=== PATIENT | female | born 1955 | race Caucasian/White ===

== ENCOUNTER 2017-07-07 05:28 | Day surgery (SDC) | payer OTHER, MEDICARE ==
[2017-07-06 18:10] VITALS: BMI 24.7
[2017-07-07] MEDS ORDERED: LIDOCAINE HCL 1%, 10 MG/ML (20ML VIAL) ONE (14:01)
[2017-07-07] MEDS ORDERED: HEPARIN NA (PORCINE) 5,000 UNITS/ML 1ML VIAL ONE (14:01)
[2017-07-07] MEDS ORDERED: POVIDONE-IODINE OINTMENT 10% - 28.4 GM TUBE ONE (14:46)
--- NOTE | 2017-07-07 14:46 | HP ---
[facility] - Chief Complaint History of Present Illness: 62 year old woman with ESRD on HD who needs chronic hemodialysis access. She has liver transplant and developed kidney disease from rejection medications. She is right handed. History Source: Patient Limitations to Obtaining History: No Limitations - Past Medical History Allergies/Adverse Reactions: Allergies Allergy/AdvReac Type Severity Reaction Status Date / Time No Known Allergies Allergy Verified 07/07/17 14:14 Cardiovascular: Yes: HTN Hepatobiliary: Yes: Other (Liver transplant) - Current Medications Current Medications: Home Medications Medication Instructions Recorded Amlodipine Besylate [Norvasc -] 5 mg PO BID 07/06/17 Doxazosin Mesylate 4 mg PO DAILY 07/06/17 Furosemide [Lasix] 40 mg PO BID 07/06/17 Gabapentin 300 mg PO DAILY 07/06/17 Mycophenolate Mofetil [Cellcept] 500 mg PO BID 07/06/17 Repaglinide [Prandin] 1.5 mg PO DAILY 07/06/17 Tacrolimus [Prograf 0.5 mg NR DAILY 07/06/17 (Non-Formulary)] Satellite Physical Exam - Physical Examination Vital Signs: Vital Signs Period Temp Pulse Resp BP Sys/Reeves Pulse Ox Last 24 Hr 98.1 F 79 16 121/76 100 General Appearance: Well Developed, Alert & Oriented x3 ENT: Clear Lung: Clear to auscultation Heart: Regular rate & rhythm Breasts: Soft Abdomen: Soft Extremities: No edema Satellite Impression/Plan - Impression/Plan Impression: ESRD on HD Operative Procedure: Creation AV fistula left arm Date to be Performed: 07/07/17
[2017-07-07] MEDS ORDERED: PROPOFOL 20 ML ONE ×4 (14:54)
[2017-07-07] MEDS ORDERED: MIDAZOLAM HCL 2 MG/2 ML SINGLE DOSE VIAL ONE (14:55)
[2017-07-07] MEDS ORDERED: LIDOCAINE HCL/PF 2% SDV 5ML VIAL ONE (14:58)
[2017-07-07] MEDS ORDERED: PAPAVERINE HCL 30 MG/1 ML 10 ML VIAL NR ONE (15:11)
[2017-07-07] MEDS ORDERED: LIDOCAINE HCL 1%, 10 MG/ML (20ML VIAL) IJ ONE (15:35)
--- NOTE | 2017-07-07 16:27 | OP ---
Operative Note - Note: Operative Date: 07/07/17 Pre-Operative Diagnosis: ESRD on HD Operation: Creation AV fistula left arm Findings: Cephalic vein 3 mm distended. Radial artery 2.5 mm Post-Operative Diagnosis: Same as Pre-op Surgeon: Dread Flaherty Anesthesiologist/NON DESTRUCTIVE TESTING ENGINEER: Mily Ordonez Anesthesia: Fractional Estimated Blood Loss (mls): 100
[2017-07-07] MEDS ORDERED: ACETAMINOPHEN 325 MG TABLET (FP) PO PRN (16:29)
[2017-07-07] MEDS ORDERED: oxyCODONE HCL 5 MG TABLET PO PRN (16:29)
[2017-07-07 17:18] VITALS: TEMP 97.8
[2017-07-07 19:57] VITALS: BP 127/67; PULSE 74
--- NOTE | 2017-07-07 21:05 | OP ---
DATE OF OPERATION: 07/07/2017 SURGEON: Dread Galvin M.D. PROCEDURE: Creation of arteriovenous fistula of the left arm. PREOPERATIVE DIAGNOSIS: Renal failure. POSTOPERATIVE DIAGNOSIS: Renal failure. ANESTHESIA: Fractional. ANESTHESIOLOGIST: Mily Ordonez CRNA OPERATIVE FINDINGS: The forearm cephalic vein was patent with a diameter of approximately 3 mm with distended. The adjacent radial artery was approximately 2.5 mm in diameter with good flow. OPERATIVE PROCEDURE: Following routine patient identification, side to side verification, intravenous tissue was established. The left arm was prepped with Chloraprep. Timeout was performed. Then 1% Xylocaine was infiltrated over the cephalic vein in the distal forearm, which had been met preoperatively with duplex imaging. A skin incision was made and carried in the subcutaneous tissues using cautery for hemostasis. The cephalic vein was identified and carefully mobilized from the surrounding tissues. Distal side branches were ligated. The end of the vein was then opened through the side branches and distended with heparin and propiverine solution. Number 5 and number 8 feeding tubes were passed proximally without resistance. The vein was filled with heparin solution. The radial artery was then exposed to the same incision. It was encircled proximally, distally with vessel loops. Side branches were ligated with silk ties and divided. The artery was then occluded with Yasargil clips and opened on its exposed surface with a longitudinal arteriotomy measuring approximately 8 mm. The end of the vein was spatulated anastomosed to the side of the artery throwing suture of 6-0 Prolene. Prior to completion of the suture line, the artery was allowed to back bleed and flush, and the vein was flushed with heparin solution. Suture line was completed, and all clamps were removed. There was good flow through the anastomosis with a palpable thrill in the proximal vein. Bleeding from the suture line was controlled with Surgicel. Hemostasis was adequate. Wound was irrigated, closed with subcutaneous sutures of 3-0 Vicryl, and skin luz marina. Sterile dressing was applied, and the patient was taken to the recovery room in stable condition. DREAD GALVIN M.D. [id number] MTDD
== END 2017-07-07 18:00 | disposition home or self-care (01) ==
LOC: JASU-SURG 05:28
PROVIDERS: ATTEND Surgery
PROC: 031C0ZF Bypass Left Radial Artery to Lower Arm Vein, Open Approach (ICD-10-PCS; principal; 2017-07-07 15:00)
DX: N18.6 End stage renal disease (principal); Z94.4 Liver transplant status; N28.89 Other specified disorders of kidney and ureter; Z99.2 Dependence on renal dialysis
CPT/HCPCS: 36415; 84132; 94760; J1644

== ENCOUNTER 2017-08-21 08:34 | Inpatient (IN) | payer OTHER, MEDICARE ==
[2017-08-21 08:54] VITALS: BMI 25.2
--- NOTE | 2017-08-21 09:14 | PDOC ---
History of Present Illness - General Chief Complaint: Dialysis Shunt Problem Stated Complaint: PCP SENT Time Seen by Provider: 08/21/17 09:13 Past History - Past Medical History Allergies/Adverse Reactions: Allergies Allergy/AdvReac Type Severity Reaction Status Date / Time No Known Allergies Allergy Verified 07/07/17 14:14 Home Medications: Ambulatory Orders Amlodipine Besylate [Norvasc -] 5 mg PO BID 07/06/17 Doxazosin Mesylate 4 mg PO DAILY 07/06/17 Furosemide [Lasix] 40 mg PO BID 07/06/17 Gabapentin 300 mg PO DAILY 07/06/17 Mycophenolate Mofetil [Cellcept] 500 mg PO BID 07/06/17 Repaglinide [Prandin] 1.5 mg PO DAILY 07/06/17 Tacrolimus [Prograf (Non-Formulary)] 0.5 mg NR DAILY 07/06/17 Anemia: No Asthma: No Cancer: No Cardiac Disorders: No CVA: No COPD: No CHF: No Dementia: No Diabetes: Yes Dialysis: Yes ([id number]) GI Disorders: No HTN: Yes Hypercholesterolemia: No Liver Disease: Yes (LIVER TRANSPLANT 2004) Seizures: No Thyroid Disease: No - Surgical History Cholecystectomy: Yes - Suicide/Smoking/Psychosocial Hx Smoking History: Never smoked Have you smoked in the past 12 months: No If you are a former smoker, when did you quit?: 2013 Information on smoking cessation initiated: No Hx Alcohol Use: No Drug/Substance Use Hx: No Substance Use Type: None Hx Substance Use Treatment: No *Physical Exam - Vital Signs Last Vital Signs Temp Pulse Resp BP Pulse Ox 97.7 F 80 18 145/84 100 08/21/17 08:35 08/21/17 08:35 08/21/17 08:35 08/21/17 08:35 08/21/17 08:35
--- NOTE | 2017-08-21 09:22 | PDOC ---
Attending Attestation - Resident Resident Name: Gordon Mendoza - ED Attending Attestation I have performed the following: I have examined & evaluated the patient, The case was reviewed & discussed with the resident, I agree w/resident's findings & plan, Exceptions are as noted - Physicial Exam PE: GENERAL: Awake, alert, and fully oriented, in no acute distress HEAD: No signs of trauma EYES: PERRLA, EOMI, sclera anicteric, conjunctiva clear ENT: Auricles normal inspection, hearing grossly normal, nares patent, oropharynx clear without exudates. Moist mucosa NECK: Normal ROM, supple, no lymphadenopathy, JVD, or masses LUNGS: Breath sounds equal, clear to auscultation bilaterally. No wheezes, and no crackles HEART: Regular rate and rhythm, normal S1 and S2, no murmurs, rubs or gallops ABDOMEN: Soft, +distension, with fluid save. Nontender, normoactive bowel sounds. No guarding, no rebound. No masses EXTREMITIES: Normal range of motion, no edema. No clubbing or cyanosis. No cords , erythema, or tenderness NEUROLOGICAL: Cranial nerves II through XII grossly intact. Normal speech, normal gait SKIN: Warm, Dry, normal turgor, no rashes. R upper chest wall with tunneled catheter present, with purulent material leaking around the insertion site. Slight erythema at the insertion point. Sutures are not intact. - Medical Decision Making 08/21/17 10:08 Dr. Loza at bedside. 08/21/17 10:25 D/w Dr. Gerardo Palacio, will admit. Requested Dr. Rooney for ID. I will place consult. 08/21/17 10:[address] Flaherty. 08/21/17 10:[address] Loza, who spoke with Dr. Flaherty. Dr. Flaherty will come to remove the catheter. I will send PT/INR and T&S. <Marilyn Lo - Last Filed: 08/21/17 10:41> - HPI HPI: 08/21/17 09:38 62 yr old female, with significant past medical history of ESRD on hemodialysis (Wednesday//Wednesday), DM II, HTN, s/p liver transplant, who presents to the emergency room with increased redness, warmth, and purulent discharge from her dialysis port. The port was cultured at the [facility] and was gram positive. She was started on vancomycin and gentamicin. The patient completed the dialysis treatment this morning. The doctor who placed this port is located at [place]; however, Dr. Flaherty recently placed an AV shunt in her left arm 07/07/17. Denies fever, chills, nausea, vomiting. Denies chest pain, SOB, cough. PCP: Dr. Petrona Palacio General Manager In Training: Dr. Sera Morrow Vascular: Dr. Dread Flaherty <Jessi Garrison - Last Filed: 08/21/17 11:10>
--- NOTE | 2017-08-21 09:41 | PDOC ---
History of Present Illness <Marilyn Lo - Last Filed: 08/21/17 10:27> - General History Source: Patient Exam Limitations: No Limitations - History of Present Illness Initial Comments: 08/21/17 12:34 62F with pmh of ESRD on hemodialysis (Wednesday//Wednesday), DM II, HTN, s/ p liver transplant, sent to the ED by SIS[facility] Hoang for pain, swelling, redness and purulent discharge from CVC site. At that facility Dr. Sera Ricks collected culture from site as well as blood and patient was started on 1g Vancomycin and 100mg Gentamycin. Patient was sent for evaluation and possible replacement of Catheter. The doctor who placed this port is located at [place]; however, Dr. Flaherty recently placed an AV shunt in her left arm 07/07/17. Denies fever, chills, nausea, vomiting. Denies chest pain, SOB, cough. 08/21/17 12:45 <Gordon Mendoza - Last Filed: 08/21/17 12:46> - General Chief Complaint: Dialysis Shunt Problem Stated Complaint: PCP SENT Time Seen by Provider: 08/21/17 09:13 Past History <Marilyn Lo - Last Filed: 08/21/17 10:27> - Past Medical History Anemia: No Asthma: No Cancer: No Cardiac Disorders: No CVA: No COPD: No CHF: No Dementia: No Diabetes: Yes Dialysis: Yes ([id number]) GI Disorders: No HTN: Yes Hypercholesterolemia: No Liver Disease: Yes (LIVER TRANSPLANT 2004) Seizures: No Thyroid Disease: No - Surgical History Cholecystectomy: Yes - Suicide/Smoking/Psychosocial Hx Smoking History: Former smoker Have you smoked in the past 12 months: No If you are a former smoker, when did you quit?: 2013 Information on smoking cessation initiated: No Hx Alcohol Use: No Drug/Substance Use Hx: No Substance Use Type: None Hx Substance Use Treatment: No <Gordon Mendoza - Last Filed: 08/21/17 12:46> - Past Medical History Allergies/Adverse Reactions: Allergies Allergy/AdvReac Type Severity Reaction Status Date / Time No Known Allergies Allergy Verified 07/07/17 14:14 Home Medications: Ambulatory Orders Amlodipine Besylate [Norvasc -] 5 mg PO DAILY 07/06/17 Doxazosin Mesylate 4 mg PO DAILY 07/06/17 Furosemide [Lasix] 40 mg PO BID 07/06/17 Gabapentin 300 mg PO DAILY 07/06/17 Mycophenolate Mofetil [Cellcept] 500 mg PO BID 07/06/17 Repaglinide [Prandin] 1.5 mg PO DAILY 07/06/17 Tacrolimus [Prograf (Non-Formulary)] 0.5 mg NR BID 07/06/17 Review of Systems - Review of Systems Constitutional: No: Symptoms Reported, Fever HEENTM: No: Symptoms Reported Respiratory: No: Symptoms reported Cardiac (ROS): No: Symptoms Reported ABD/GI: Yes: Abdominal Distended : No: Symptoms Reported Musculoskeletal: No: Symptoms Reported All Other Systems: Reviewed and Negative <Gordon Mendoza - Last Filed: 08/21/17 12:46> *Physical Exam - Vital Signs Last Vital Signs Temp Pulse Resp BP Pulse Ox 97.7 F 80 18 145/84 100 08/21/17 08:35 08/21/17 08:35 08/21/17 08:35 08/21/17 08:35 08/21/17 08:35 <Marilyn Lo - Last Filed: 08/21/17 10:27> - Vital Signs Last Vital Signs Temp Pulse Resp BP Pulse Ox 97.7 F 80 18 145/84 100 08/21/17 08:35 08/21/17 08:35 08/21/17 08:35 08/21/17 08:35 08/21/17 08:35 - Physical Exam General Appearance: Yes: Nourished, Appropriately Dressed. No: Apparent Distress HEENT: positive: EOMI, LARY, Other (visible catheter subcutaneously on right neck with purulent discharge and missing sutures.) Neck: positive: Trachea midline. negative: Tender Respiratory/Chest: positive: Lungs Clear, Normal Breath Sounds. negative: Chest Tender Cardiovascular: positive: Regular Rhythm, Regular Rate, S1, S2 Gastrointestinal/Abdominal: positive: Distended, Other (positive ascites) <Gordon Mendoza - Last Filed: 08/21/17 12:46> ED Treatment Course - LABORATORY CBC & Chemistry Diagram: 08/21/17 09:15 08/21/17 09:15 - ADDITIONAL ORDERS Additional order review: Laboratory Results 08/21/17 09:15 Sodium 134 L Potassium 4.4 Chloride 101 Carbon Dioxide 23 Anion Gap 10 BUN 41 H D Creatinine 5.8 H D Creat Clearance w eGFR 7.34 Random Glucose 127 H D Calcium 8.6 Total Bilirubin 0.5 D AST 24 D ALT 14 Alkaline Phosphatase 113 Total Protein 7.7 Albumin 3.7 08/21/17 09:15 RBC 3.43 L MCV 87.5 MCHC 30.5 L RDW 16.3 H MPV 8.6 Neutrophils % 66.9 Lymphocytes % 20.6 Monocytes % 10.8 H Eosinophils % 0.9 Basophils % 0.8 - RADIOLOGY Radiology Studies Ordered: Category Date Time Status CHEST X-RAY PORTABLE* [RAD] Stat Radiology 08/21/17 09:15 Completed <Marilyn Lo - Last Filed: 08/21/17 10:27> - LABORATORY CBC & Chemistry Diagram: 08/21/17 09:15 08/21/17 09:15 <Gordon Mendoza - Last Filed: 08/21/17 12:46> Medical Decision Making - Medical Decision Making 08/21/17 12:43 08/21/17 10:08 62F with pmh of ESRD on hemodialysis (Wednesday//Wednesday), DM II, HTN, s/ p liver transplant, sent to the ED by SISSY Hoang for pain, swelling, redness and purulent discharge from CVC site. Dr. Loza at bedside. 08/21/17 10:25 D/w Dr. Gerardo Palacio, will admit. Requested Dr. Rooney for ID. I will place consult. 08/21/17 10:[address] Flaherty. 08/21/17 10:[address] Loza, who spoke with Dr. Flaherty. Dr. Flaherty will come to remove the catheter. I will send PT/INR and T&S. 08/21/17 12:46 <Gordon Mendoza - Last Filed: 08/21/17 12:46> *DC/Admit/Observation/Transfer - Discharge Dispostion Admit: Yes <Marilyn Lo - Last Filed: 08/21/17 10:27> <Gordon Mendoza - Last Filed: 08/21/17 12:46> Diagnosis at time of Disposition: Infection of vascular catheter - Discharge Dispostion Condition at time of disposition: Stable - Referrals Referrals: Petrona Palacio [Primary Care Provider] -
[2017-08-21 09:42] LABS: BASOPHIL 0.8 % (0-2.0); EOSINOPHIL 0.9 % (0-4.5); MCH 26.7 pg (25.7-33.7); MCHC 30.5 g/dl (32.0-36.0); MEAN CELL VOLUME 87.5 fl (80-96); MEAN PLT VOLUME 8.6 fl (7.5-11.1); NEUTROPHILS 66.9 % (42.8-82.8); PLATELET COUNT 130 K/MM3 (134-434); RDW 16.3 % (11.6-15.6); WHITE BLOOD COUNT 3.1 K/mm3 (4.0-10.0)
[2017-08-21 10:04] LABS: ALBUMIN 3.7 g/dl (3.4-5.0); ANION GAP 10 (8-16); BILIRUBIN,TOTAL 0.5 mg/dL (0.2-1.0); CALCIUM 8.6 mg/dL (8.5-10.1); CO2 23 mmol/L (21-32); CREATININE 5.8 mg/dL (0.55-1.02); GLUCOSE,RANDOM 127 mg/dL (74-106); SGPT/ALT 14 U/L (12-78); TOT PROT 7.7 g/dl (6.4-8.2)
[2017-08-21 10:05] LABS: ALK PHOS 113 U/L (45-117)
[2017-08-21 10:10] LABS: SGOT/AST 24 U/L (15-37)
--- NOTE | 2017-08-21 10:31 | CON.NEP ---
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 Pt s/ p vanco and gent with last dialysis on . - History Source History Provided By: Patient Limitations to Obtaining History: No Limitations - Past Medical History Cardio/Vascular: Yes: HTN Hepatobiliary: Yes: Other (Liver transplant) - Alcohol/Substance Use Hx Alcohol Use: No - Smoking History Smoking history: Former smoker Have you smoked in the past 12 months: No If you are a former smoker, when did you quit?: 2013 Home Medications - Allergies Allergies/Adverse Reactions: Allergies Allergy/AdvReac Type Severity Reaction Status Date / Time No Known Allergies Allergy Verified 07/07/17 14:14 - Home Medications Home Medications: Ambulatory Orders Amlodipine Besylate [Norvasc -] 5 mg PO DAILY 07/06/17 Doxazosin Mesylate 4 mg PO DAILY 07/06/17 Furosemide [Lasix] 40 mg PO BID 07/06/17 Gabapentin 300 mg PO DAILY 07/06/17 Mycophenolate Mofetil [Cellcept] 500 mg PO BID 07/06/17 Repaglinide [Prandin] 1.5 mg PO DAILY 07/06/17 Tacrolimus [Prograf (Non-Formulary)] 0.5 mg NR BID 07/06/17 Review of Systems - Review of Systems Constitutional: reports: No Symptoms Eyes: reports: No Symptoms HENT: reports: No Symptoms Neck: reports: No Symptoms Cardiovascular: reports: No Symptoms Respiratory: reports: No Symptoms Gastrointestinal: reports: Other (ascities) Genitourinary: reports: No Symptoms Musculoskeletal: reports: No Symptoms Integumentary: reports: No Symptoms Neurological: reports: No Symptoms Nephrology Consult - Height Height: 5 ft 6 in - Weight Weight: 156 lb - BMI Body Mass Index (BMI): 25.2 - Lab Results CBC,BMP: CBC, BMP 08/21/17 09:15 08/21/17 09:15 Anion Gap: Anion Gap Anion Gap 10 (8-16) 08/21/17 09:15 - Imaging Chest X-ray: Report Reviewed - Physical Examination Vital Signs: Vital Signs Temperature 97.7 F 08/21/17 08:35 Pulse Rate 80 08/21/17 08:35 Respiratory Rate 18 08/21/17 08:35 Blood Pressure 145/84 08/21/17 08:35 O2 Sat by Pulse Oximetry (%) 100 08/21/17 08:35 Assessment/Plan 62 year old woman with PMhx of 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 #Gram positive bactermia with suspected infected dialysis catheter s/p vanco and get with HD on for HD today via catheter and then IV Vanco post will need to have catheter removed post dialysis Vascular consult ID consult #ESRD on HD for HD today with UF 3L as tolerated #Liver Transplant continue Prograf and Cellcept consider GI evaluation Inder Loza DO
[2017-08-21 11:11] LABS: INR 1.12 (0.82-1.09); PROTHROMBIN TIME (PATIENT) 12.7 SEC (9.98-11.88)
[2017-08-21] MEDS ORDERED: HEPARIN NA (PORCINE) 5,000 UNITS/ML 1ML VIAL ONE (11:46)
[2017-08-21] MEDS ORDERED: LIDOCAINE HCL 1%, 10 MG/ML (20ML VIAL) ONE (11:46)
[2017-08-21] MEDS ORDERED: VANCOMYCIN 1,000 MG in DEXTROSE 5%-WATER - 250 ML IVPB ONE (12:00)
--- NOTE | 2017-08-21 12:13 | PROC ---
Central Line Insertion Indication: Other (Dialysis access) Risks and Benefits Explained: Yes Consent on Chart: Yes Central Line: Dialysis Cath, Dual Lumen Anesthesia: 1% Lidocaine Sterile Technique: Yes Position: Right Femoral Sterile Dressing Applied: Yes
--- NOTE | 2017-08-21 12:18 | CONSULT ---
Consult - History of Present Illness History of Present Illness: 62 year old woman ESRD on HD with new AVF left arm and Permacath right IJ who has positive blood cultures at dialysis. Patient feels well, denies fever or chills. - Past Medical History Cardio/Vascular: Yes: HTN Hepatobiliary: Yes: Other (Liver transplant) - Alcohol/Substance Use Hx Alcohol Use: No - Smoking History Smoking history: Former smoker Have you smoked in the past 12 months: No If you are a former smoker, when did you quit?: 2013 Home Medications - Allergies Allergies/Adverse Reactions: Allergies Allergy/AdvReac Type Severity Reaction Status Date / Time No Known Allergies Allergy Verified 07/07/17 14:14 - Home Medications Home Medications: Ambulatory Orders Amlodipine Besylate [Norvasc -] 5 mg PO DAILY 07/06/17 Doxazosin Mesylate 4 mg PO DAILY 07/06/17 Furosemide [Lasix] 40 mg PO BID 07/06/17 Gabapentin 300 mg PO DAILY 07/06/17 Mycophenolate Mofetil [Cellcept] 500 mg PO BID 07/06/17 Repaglinide [Prandin] 1.5 mg PO DAILY 07/06/17 Tacrolimus [Prograf (Non-Formulary)] 0.5 mg NR BID 07/06/17 Physical Exam Vital Signs: Vital Signs Temperature 97.7 F 08/21/17 08:35 Pulse Rate 80 08/21/17 08:35 Respiratory Rate 18 08/21/17 08:35 Blood Pressure 145/84 08/21/17 08:35 O2 Sat by Pulse Oximetry (%) 100 08/21/17 08:35 Constitutional: Yes: No Distress Eyes: Yes: EOM Intact Neck: Yes: Supple, Other (No erythema or tenderness.) Gastrointestinal: Yes: Distention Extremities: Yes: Other (Left radial-cephalic fistula with thrill) Labs: CBC, BMP 08/21/17 09:15 08/21/17 09:15 Problem List - Problems (1) Line sepsis associated with dialysis catheter Assessment/Plan: Will remove Permacath and place temporary Shiley in right femoral vein. Code(s): T80.218A - OTHER INFECTION DUE TO CENTRAL VENOUS CATHETER, INIT ENCNTR A41.9 - SEPSIS, UNSPECIFIED ORGANISM Assessment/Plan Right chest permacath removed at bedside. Sterile dressing applied.
--- NOTE | 2017-08-21 12:48 | OP ---
DATE OF OPERATION: 08/21/2017 PROCEDURE: 1. Placement, right femoral dialysis catheter. 2. Removal of Perm-A-Cath from right chest. INDICATION: Sepsis. Consent from patient. ANESTHESIA: Local. PROCEDURE: The right groin was prepped with ChloraPrep. Sterile drape was applied. Timeout was performed. Xylocaine 1% was infiltrated medial to the right femoral pulse and an 18-gauge needle was used to access the right femoral vein. A wire was passed proximally into the iliac vein. The needle was removed, the tract dilated, and a double-lumen dialysis catheter advanced over the wire without difficulty. The wire was removed. Each lumen was aspirated for blood, filled with saline and heparin solution. Catheter was sutured to the skin at the exit site with 3-0 nylon. Sterile dressing was applied. Attention was then turned to the chest wall where the Perm-A-Cath was exiting from the skin. The chest wall was prepped with ChloraPrep. Lidocaine was infiltrated around the exit site and the cuff was freed and the catheter removed. Pressure was applied until bleeding ceased. A sterile dressing was applied. Patient tolerated procedures well. Lisette [id number]
[2017-08-21] MEDS ORDERED: VANCOMYCIN 1 GRAM (PRE-DOCKED) 250 ML IVPB ONE (13:20)
--- NOTE | 2017-08-21 14:49 | HP ---
Admitting History and Physical - Primary Care Physician PCP: Gerardo Palacio - Admission Chief Complaint: Positive BCX History of Present Illness: Pt with Hx/o ESRD on HD, had positive BCX from Permacat at HD center and was referred to ER for evaluation and treatment. Pt has a right Permacath, new left AVF. History Source: Patient - Past Medical History Cardiovascular: Yes: HTN Hepatobiliary: Yes: Other (Liver transplant) Renal/: Yes: Renal Failure, Other (HD, Right Permacath, left AVF) - Past Surgical History Past Surgical History: Yes: Liver Transplant - Smoking History Smoking history: Former smoker Have you smoked in the past 12 months: No If you are a former smoker, when did you quit?: 2013 - Alcohol/Substance Use Hx Alcohol Use: No Home Medications - Allergies Allergies/Adverse Reactions: Allergies Allergy/AdvReac Type Severity Reaction Status Date / Time No Known Allergies Allergy Verified 07/07/17 14:14 - Home Medications Home Medications: Ambulatory Orders Amlodipine Besylate [Norvasc -] 5 mg PO DAILY 07/06/17 Doxazosin Mesylate 4 mg PO DAILY 07/06/17 Furosemide [Lasix] 40 mg PO BID 07/06/17 Gabapentin 300 mg PO DAILY 07/06/17 Mycophenolate Mofetil [Cellcept] 500 mg PO BID 07/06/17 Repaglinide [Prandin] 1.5 mg PO DAILY 07/06/17 Tacrolimus [Prograf (Non-Formulary)] 0.5 mg NR BID 07/06/17 Review of Systems - Review of Systems Constitutional: denies: Chills, Fever Eyes: denies: Blurred Vision, Recent Change in Vision HENT: denies: Difficult Swallowing, Ear Discharge, Ear Pain, Epistaxis, Throat Pain Neck: denies: Pain on Movement, Stiffness Cardiovascular: denies: Chest Pain, Edema, Palpitations, Shortness of Breath Respiratory: denies: Cough, SOB Gastrointestinal: denies: Abdominal Pain, Diarrhea, Nausea, Vomiting Musculoskeletal: denies: Joint Swelling, Muscle Pain Integumentary: denies: Blister, Pruritis, Rash Endocrine: denies: Excessive Sweating, Intolerance to Cold Physical Examination Vital Signs: Vital Signs Temperature 97.7 F 08/21/17 08:35 Pulse Rate 83 08/21/17 11:20 Respiratory Rate 20 08/21/17 11:20 Blood Pressure 124/83 08/21/17 11:20 O2 Sat by Pulse Oximetry (%) 99 08/21/17 11:20 Constitutional: Yes: No Distress, Calm Eyes: Yes: Conjunctiva Clear, EOM Intact HENT: Yes: Normocephalic. No: Nasal Congestion, Rhinnorhea Neck: Yes: Trachea Midline. No: Lymphadenopathy Cardiovascular: Yes: Regular Rate and Rhythm, S1, S2 Respiratory: Yes: Regular, CTA Bilaterally. No: Rales Gastrointestinal: Yes: Normal Bowel Sounds, Soft, Ascites ...Rectal Exam: Yes: Deferred Breast(s): Yes: Other (deferred) Musculoskeletal: No: Joint Stiffness, Joint Swelling Extremities: No: Cool, Cyanosis Edema: No Integumentary: No: Erythema, Rash Neurological: Yes: Alert, Oriented, Other (symmetric motor and sensory.) Labs: reviewed Imaging - Results Chest X-ray: Report Reviewed Problem List - Problems (1) Bacteremia associated with intravascular line Code(s): T82.7XXA - INFECT/INFLM REACT D/T OTH CARDI/VASC DEV/IMPLNT/GRFT, INIT R78.81 - BACTEREMIA (2) ESRD (end stage renal disease) on dialysis Code(s): N18.6 - END STAGE RENAL DISEASE Z99.2 - DEPENDENCE ON RENAL DIALYSIS (3) Liver transplanted Code(s): Z94.4 - LIVER TRANSPLANT STATUS (4) Hypertension Code(s): I10 - ESSENTIAL (PRIMARY) HYPERTENSION Assessment/Plan Vasc SX Consult ID consult Renal consult AM labs Case was d/w family at bedside.
[2017-08-21] MEDS ORDERED: TACROLIMUS 0.5 MG NR SCH (22:00)
[2017-08-22] MEDS: MYCOPHENOLATE MOFETIL 500 MG TABLET PO SCH ×3 (02:17→22:00)
[2017-08-22] MEDS: REPAGLINIDE 0.5 MG TABLET (FP) PO SCH (06:36)
[2017-08-22] MEDS ORDERED: FUROSEMIDE 40 MG TABLET (FP) ONE (06:37)
[2017-08-22] MEDS: FUROSEMIDE 40 MG TABLET (FP) PO SCH ×2 (06:39→16:50)
[2017-08-22 06:53] LABS: MCH 26.7 pg (25.7-33.7); MCHC 30.7 g/dl (32.0-36.0); MEAN CELL VOLUME 87.1 fl (80-96); MEAN PLT VOLUME 8.4 fl (7.5-11.1); PLATELET COUNT 133 K/MM3 (134-434); WHITE BLOOD COUNT 3.2 K/mm3 (4.0-10.0)
[2017-08-22 07:17] LABS: ALBUMIN 3.3 g/dl (3.4-5.0); ANION GAP 12 (8-16); CO2 25 mmol/L (21-32); GLUCOSE,RANDOM 123 mg/dL (74-106)
[2017-08-22 07:21] LABS: ALK PHOS 111 U/L (45-117); BILIRUBIN,TOTAL 0.4 mg/dL (0.2-1.0); CREATININE 4.8 mg/dL (0.55-1.02); SGOT/AST 20 U/L (15-37); SGPT/ALT 13 U/L (12-78); TOT PROT 7.2 g/dl (6.4-8.2)
--- NOTE | 2017-08-22 09:06 | PN ---
Progress Note (short form) - Note Progress Note: Renal Follow up for ESRD on HD Pt seen and examined in the ED awake and alert no acute complaints no sob, chest pain s/p dialysis yesterday Vital Signs Temperature 98.2 F 08/22/17 04:54 Pulse Rate 91 H 08/22/17 04:54 Respiratory Rate 18 08/22/17 04:54 Blood Pressure 127/83 08/22/17 04:54 O2 Sat by Pulse Oximetry (%) 98 08/22/17 06:00 Intake & Output 08/19/17 08/20/17 08/21/17 08/22/17 23:59 23:59 23:59 23:59 Intake Total 100 Balance 100 Weight 156 lb NAD RRR CTA, no rales soft, + ascities No edema in LE tunneled HD catheter removed, dressing in place femoral shiely catheter in place CBC, BMP 08/22/17 06:03 08/22/17 06:03 Current Medications Amlodipine Besylate (Norvasc -) 5 mg PO DAILY [facility] Doxazosin Mesylate (Cardura -) 4 mg PO DAILY [facility] Furosemide (Lasix -) 40 mg PO BIDLASIX [facility] Last Admin: 08/22/17 06:39 Dose: 40 mg Gabapentin (Neurontin -) 300 mg PO DAILY [facility] Mycophenolate Mofetil (Cellcept -) 500 mg PO BID [facility] Last Admin: 08/22/17 02:17 Dose: 500 mg Non-Formulary Medication (Tacrolimus) 0.5 mg NR BID [facility] Repaglinide (Prandin -) 1.5 mg PO DAILY@0700 [facility] Last Admin: 08/22/17 06:36 Dose: Not Given A/P 62 year old woman with PMhx of 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 #Gram positive bactermia with suspected infected dialysis catheter tunneled HD catheter removed by vascular temporary femoral shiely catheter place s/p Vanco IV yesterday f/u cultures drawn yesterday #ESRD on HD s/p dialysis yesterday with 3kg UF no indication for dialysis today Renal diet #Liver Transplant continue Prograf and Cellcept consider GI evaluation as pt has abd ascities Inder Loza DO
--- NOTE | 2017-08-22 11:06 | EKG ---
Test Reason : Blood Pressure : / mmHG Vent. Rate : 079 BPM Atrial Rate : 079 BPM P-R Int : 148 ms QRS Dur : 126 ms QT Int : 410 ms P-R-T Axes : 027 032 007 degrees QTc Int : 470 ms NORMAL SINUS RHYTHM RIGHT BUNDLE BRANCH BLOCK ABNORMAL ECG WHEN COMPARED WITH ECG OF 01-JUL-2017 16:51, NO SIGNIFICANT CHANGE WAS FOUND Confirmed by BERTRAND AMIN MD ([id number]) on 08/22/2017 11:06:34 AM Referred By: Confirmed By:BERTRAND AMIN MD
[2017-08-22] MEDS: GABAPENTIN 300 MG CAPSULE (FP) PO SCH (11:55)
[2017-08-22] MEDS: amLODIPine BESYLATE 5 MG TABLET (FP) PO SCH (11:55)
[2017-08-22] MEDS: DOXAZOSIN MESYLATE 4 MG TABLET PO SCH (11:56)
--- NOTE | 2017-08-22 12:29 | PN ---
Progress Note, Physician History of Present Illness: Pt w/o fever, chills, SOB, CP, abd pain. - Current Medication List Current Medications: Active Medications Amlodipine Besylate (Norvasc -) 5 mg PO DAILY [facility] Last Admin: 08/22/17 11:55 Dose: Not Given Doxazosin Mesylate (Cardura -) 4 mg PO DAILY [facility] Last Admin: 08/22/17 11:56 Dose: Not Given Furosemide (Lasix -) 40 mg PO BIDLASIX [facility] Last Admin: 08/22/17 06:39 Dose: 40 mg Gabapentin (Neurontin -) 300 mg PO DAILY [facility] Last Admin: 08/22/17 11:55 Dose: Not Given Mycophenolate Mofetil (Cellcept -) 500 mg PO BID [facility] Last Admin: 08/22/17 11:55 Dose: Not Given Non-Formulary Medication (Tacrolimus) 0.5 mg NR BID [facility] Repaglinide (Prandin -) 1.5 mg PO DAILY@0700 [facility] Last Admin: 08/22/17 06:36 Dose: Not Given - Objective Vital Signs: Vital Signs Temperature 98.2 F 08/22/17 04:54 Pulse Rate 91 H 08/22/17 04:54 Respiratory Rate 18 08/22/17 04:54 Blood Pressure 127/83 08/22/17 04:54 O2 Sat by Pulse Oximetry (%) 98 08/22/17 06:00 Constitutional: Yes: No Distress, Calm Cardiovascular: Yes: Regular Rate and Rhythm, S1, S2 Respiratory: Yes: Regular, CTA Bilaterally. No: Rales Gastrointestinal: Yes: Normal Bowel Sounds, Soft. No: Tenderness Edema: No Neurological: Yes: Alert, Oriented Labs: CBC, BMP 08/22/17 06:03 08/22/17 06:03 INR, PTT INR 1.12 (0.82-1.09) 08/21/17 10:43 Problem List - Problems (1) Bacteremia associated with intravascular line Code(s): T82.7XXA - INFECT/INFLM REACT D/T OTH CARDI/VASC DEV/IMPLNT/GRFT, INIT R78.81 - BACTEREMIA (2) ESRD (end stage renal disease) on dialysis Code(s): N18.6 - END STAGE RENAL DISEASE Z99.2 - DEPENDENCE ON RENAL DIALYSIS (3) Liver transplanted Code(s): Z94.4 - LIVER TRANSPLANT STATUS (4) Hypertension Code(s): I10 - ESSENTIAL (PRIMARY) HYPERTENSION Assessment/Plan Vasc SX Consult appreciated. ID consult. Renal consult appreciated; s/p HD yesterday; s/p Vanco at HD. AM labs Case was d/w pt's nurse.
[2017-08-23] MEDS: FUROSEMIDE 40 MG TABLET (FP) PO SCH ×2 (06:18→16:30)
[2017-08-23 07:45] LABS: MCH 26.8 pg (25.7-33.7); MCHC 30.8 g/dl (32.0-36.0); MEAN CELL VOLUME 87.2 fl (80-96); MEAN PLT VOLUME 8.3 fl (7.5-11.1); PLATELET COUNT 106 K/MM3 (134-434); RDW 15.4 % (11.6-15.6); WHITE BLOOD COUNT 2.5 K/mm3 (4.0-10.0)
[2017-08-23 08:10] LABS: ANION GAP 10 (8-16); CO2 25 mmol/L (21-32); CREATININE 6.1 mg/dL (0.55-1.02); GLUCOSE,RANDOM 109 mg/dL (74-106)
[2017-08-23] MEDS: REPAGLINIDE 0.5 MG TABLET (FP) PO SCH (08:13)
--- NOTE | 2017-08-23 08:36 | CONSULT ---
Consultation: CONSULT REQUEST: INFECTIOUS DISEASE HISTORY OF PRESENT ILLNESS: Pt is a 62yo F with PMHx of Liver Transplant, ESRD (due to immunosuppressants), who presented from her dialysis center due to painful, swollen, R permacath site. The patient had not noticed anything, denied fevers, chills, CP, SOB. States it was noticed by dialysis nurses, who also noted purulent discharge from the area. She was seen by her medic technician Dr. Sera Parsons who took wound cultures and blood cultures. She was started on empiric Vanc/Gent. On wednesday her permacath was removed by vascular surgery and temporary shiley catheter was placed in R femoral vein. Home Medication List Medication Instructions Recorded Confirmed Type Amlodipine Besylate [Norvasc -] 5 mg PO DAILY 07/06/17 08/21/17 History Doxazosin Mesylate 4 mg PO DAILY 07/06/17 08/21/17 History Furosemide [Lasix] 40 mg PO BID 07/06/17 08/21/17 History Gabapentin 300 mg PO DAILY 07/06/17 08/21/17 History Mycophenolate Mofetil [Cellcept] 500 mg PO BID 07/06/17 08/21/17 History Repaglinide [Prandin] 1.5 mg PO DAILY 07/06/17 08/21/17 History Tacrolimus [Prograf 0.5 mg NR BID 07/06/17 08/21/17 History (Non-Formulary)] REVIEW OF SYSTEMS: CONSTITUTIONAL: Absent: fever, chills, diaphoresis, generalized weakness, malaise, loss of appetite, weight change HEENT: Absent: rhinorrhea, nasal congestion, throat pain, throat swelling, difficulty swallowing, mouth swelling, ear pain, eye pain, visual changes CARDIOVASCULAR: Absent: chest pain, syncope, palpitations, irregular heart rate, lightheadedness , peripheral edema RESPIRATORY: Absent: cough, shortness of breath, dyspnea with exertion, orthopnea, wheezing, stridor, hemoptysis GASTROINTESTINAL: Absent: abdominal pain, abdominal distension, nausea, vomiting, diarrhea, constipation, melena, hematochezia GENITOURINARY: Absent: dysuria, frequency, urgency, hesitancy, hematuria, flank pain, genital pain MUSCULOSKELETAL: Absent: myalgia, arthralgia, joint swelling, back pain, neck pain SKIN: Absent: rash, itching, pallor HEMATOLOGIC/IMMUNOLOGIC: Absent: easy bleeding, easy bruising, lymphadenopathy, frequent infections ENDOCRINE: Absent: unexplained weight gain, unexplained weight loss, heat intolerance, cold intolerance NEUROLOGIC: Absent: headache, focal weakness or paresthesias, dizziness, unsteady gait, seizure, mental status changes, bladder or bowel incontinence PSYCHIATRIC: Absent: anxiety, depression, suicidal or homicidal ideation, hallucinations. PHYSICAL EXAMINATION Vital Signs Temperature 96.9 F L 08/23/17 06:20 Pulse Rate 74 08/23/17 06:20 Respiratory Rate 18 08/23/17 06:20 Blood Pressure 118/89 08/23/17 06:20 O2 Sat by Pulse Oximetry (%) 98 08/23/17 06:20 GEN: Awake, alert, not in distress, not ill appearing HEENT: PERRLA, EOMi CV: S1, S2, RRR LUNG: CTABL ABD: Soft, NT, ND MSK: R permacath site no erythema, no edema, no discharge Active Medications Generic Name Dose Route Start Last Admin Trade Name Urielq PRN Reason Stop Dose Admin Amlodipine Besylate 5 mg 08/22/17 10:00 08/22/17 11:55 Norvasc - PO Not Given DAILY [facility] Doxazosin Mesylate 4 mg 08/22/17 10:00 08/22/17 11:56 Cardura - PO Not Given DAILY [facility] Furosemide 40 mg 08/22/17 06:00 08/23/17 06:18 Lasix - PO 40 mg BIDLASIX [facility] Administration Gabapentin 300 mg 08/22/17 10:00 08/22/17 11:55 Neurontin - PO Not Given DAILY [facility] Mycophenolate Mofetil 500 mg 08/21/17 22:00 08/22/17 22:00 Cellcept - PO 500 mg BID [facility] Administration Non-Formulary Medication 0.5 mg 08/21/17 22:00 Tacrolimus NR BID [facility] Repaglinide 1.5 mg 08/22/17 07:00 08/23/17 08:13 Prandin - PO Not Given DAILY@0700 [facility] CBC, BMP 08/23/17 06:00 08/23/17 06:00 Microbiology 08/21/17 09:19 Blood - Peripheral Venous Blood Culture - Preliminary NO GROWTH OBTAINED AFTER 48 HOURS, INCUBATION TO CONTINUE FOR 3 DAYS. 08/21/17 09:19 Blood - Peripheral Venous Blood Culture - Preliminary NO GROWTH OBTAINED AFTER 48 HOURS, INCUBATION TO CONTINUE FOR 3 DAYS. 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 faecalis. # E. Faecalis bacteremia - likely 2/2 infected permacath - Cultures from dialysis center grew Enterococcus Faecalis - Give Vancomycin 1,250 now, follow level tmrw - Give Gentamicin 100mg now for synergy - Follow new blood cx - F/u outpatient s/s - ECHO - Monitor VS + CBC Discussed w/ Dr Rooney. Will follow Anthony Conner MD - PGY1 Infectious Disease Visit type - Emergency Visit Emergency Visit: Yes ED Registration Date: 08/21/17 Care time: The patient presented to the Emergency Department on the above date and was hospitalized for further evaluation of their emergent condition. - New Patient This patient is new to me today: Yes Date on this admission: 08/23/17 - Critical Care Critical Care patient: No
--- NOTE | 2017-08-23 08:58 | PN ---
Teaching Attending Note Name of Resident: Anthony Conner ATTENDING PHYSICIAN STATEMENT I saw and evaluated the patient. I reviewed the resident's note and discussed the case with the resident. I agree with the resident's findings and plan as documented. SUBJECTIVE: LiVer transplant patient on dialysis admitted with infected right permacath noted at dialysis No fever no chills. Catheter now removed as of 2 days ago. Feels well. Blood culture at dialysis positive gram positive bacteremia but right now no specifics. Blood in pair and chains. OBJECTIVE: Catheter site no erythema or drainage at this time ASSESSMENT AND PLAN:Gram pos bacteremia pair chains No ID yet. Catheter out Plan Repeat blood cultures here pending Obtain details of dialysis blood cultures ESR CRP Redose Vanco and gent ? synergy ? Enterococcus Discussed with Dr Dago Tran Vanco 1.25 grs and Gent 80 mg Nevin AVALOS Problem List - Problems (1) ESRD (end stage renal disease) on dialysis Code(s): N18.6 - END STAGE RENAL DISEASE Z99.2 - DEPENDENCE ON RENAL DIALYSIS (2) Line sepsis associated with dialysis catheter Code(s): T80.218A - OTHER INFECTION DUE TO CENTRAL VENOUS CATHETER, INIT ENCNTR A41.9 - SEPSIS, UNSPECIFIED ORGANISM
[2017-08-23] MEDS: GABAPENTIN 300 MG CAPSULE (FP) PO SCH (09:26)
[2017-08-23] MEDS: amLODIPine BESYLATE 5 MG TABLET (FP) PO SCH (09:26)
[2017-08-23] MEDS: DOXAZOSIN MESYLATE 4 MG TABLET PO SCH (09:26)
[2017-08-23] MEDS: MYCOPHENOLATE MOFETIL 500 MG TABLET PO SCH ×2 (09:26→21:39)
[2017-08-23] MEDS ORDERED: GENTAMICIN 100 ML IVPB ONE (10:00)
[2017-08-23] MEDS ORDERED: VANCOMYCIN 1,250 MG in DEXTROSE 5%-WATER - 250 ML IVPB ONE (11:00)
--- NOTE | 2017-08-23 11:28 | PN ---
Progress Note (short form) - Note Progress Note: Renal Follow up for ESRD on HD Pt seen and examined in the ED awake and alert upset about being in the ER for 2 days no fever, chills, SOb, chest pain making urine Vital Signs Temperature 98.2 F 08/23/17 11:18 Pulse Rate 72 08/23/17 11:18 Respiratory Rate 18 08/23/17 11:18 Blood Pressure 129/66 08/23/17 11:18 O2 Sat by Pulse Oximetry (%) 98 08/23/17 06:20 Intake & Output 08/20/17 08/21/17 08/22/17 08/23/17 23:59 23:59 23:59 23:59 Intake Total 580 Output Total 1 Balance 579 Weight 156 lb 155 lb 15.985 oz NAD RRR CTA, no rales soft, + ascities No edema in LE catheter exit site is clean A/P 62 year old woman with PMhx of 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 #Gram positive bactermia with suspected infected dialysis catheter Intial blood cutlures from HD unit showed 2 bottles growing enterococcus F. Exit site culture grew Klebsella On Vanco and Gent per ID cultures from admission remain negative can plan for tentative tunneled catheter insertion tomorrow (will contact vascular Sx) #ESRD on HD no acute indication for dialysis today next treatment planned for tomorrow #Liver Transplant continue Prograf and Cellcept pt to follow up with transplant hepatolgist on discharge Inder Loza DO
--- NOTE | 2017-08-23 17:29 | PN ---
Progress Note, Physician History of Present Illness: Pt w/o fever, chills, SOB, CP, abd pain. - Current Medication List Current Medications: Active Medications Amlodipine Besylate (Norvasc -) 5 mg PO DAILY [facility] Last Admin: 08/23/17 09:26 Dose: Not Given Doxazosin Mesylate (Cardura -) 4 mg PO DAILY [facility] Last Admin: 08/23/17 09:26 Dose: Not Given Furosemide (Lasix -) 40 mg PO BIDLASIX [facility] Last Admin: 08/23/17 16:30 Dose: 40 mg Gabapentin (Neurontin -) 300 mg PO DAILY [facility] Last Admin: 08/23/17 09:26 Dose: Not Given Mycophenolate Mofetil (Cellcept -) 500 mg PO BID [facility] Last Admin: 08/23/17 09:26 Dose: Not Given Non-Formulary Medication (Tacrolimus) 0.5 mg NR BID [facility] Repaglinide (Prandin -) 1.5 mg PO DAILY@0700 [facility] Last Admin: 08/23/17 08:13 Dose: Not Given - Objective Vital Signs: Vital Signs Temperature 98.4 F 08/23/17 16:38 Pulse Rate 74 08/23/17 16:38 Respiratory Rate 18 08/23/17 16:38 Blood Pressure 104/72 08/23/17 16:38 O2 Sat by Pulse Oximetry (%) 98 08/23/17 06:20 Constitutional: Yes: No Distress, Calm Cardiovascular: Yes: Regular Rate and Rhythm, S1, S2 Respiratory: Yes: Regular, CTA Bilaterally. No: Rales Gastrointestinal: Yes: Normal Bowel Sounds, Soft, Other (s/p paracentesis). No : Tenderness Edema: No Neurological: Yes: Alert, Oriented Labs: CBC, BMP 08/23/17 06:00 08/23/17 06:00 INR, PTT INR 1.12 (0.82-1.09) 08/21/17 10:43 Problem List - Problems (1) Bacteremia associated with intravascular line Code(s): T82.7XXA - INFECT/INFLM REACT D/T OTH CARDI/VASC DEV/IMPLNT/GRFT, INIT R78.81 - BACTEREMIA (2) ESRD (end stage renal disease) on dialysis Code(s): N18.6 - END STAGE RENAL DISEASE Z99.2 - DEPENDENCE ON RENAL DIALYSIS (3) Liver transplanted Code(s): Z94.4 - LIVER TRANSPLANT STATUS (4) Hypertension Code(s): I10 - ESSENTIAL (PRIMARY) HYPERTENSION (5) Leukopenia Code(s): D72.819 - DECREASED WHITE BLOOD CELL COUNT, UNSPECIFIED Assessment/Plan Vasc SX Consult appreciated. ID consult appreciated. Renal consult appreciated. Check CBC this evening to monitor WBC #; it could be 2/2 Tacrolimus, d/w pt and ; I recommended Heme consult but pt wants to hold until lab is repeated AM labs Case was d/w pt's nurse.
[2017-08-23 18:53] LABS: PERITONEAL FLUID LYMPHOCYTE 21 %; PERITONEAL FLUID MESOTHELIAL 20 %; PERITONEAL FLUID MONOCYTE 2 %
[2017-08-23 18:54] LABS: PERITONEAL FLUID MACROPHAGE 37 %; PERITONEAL FLUID NEUTROPHIL 20 %
[2017-08-23 19:16] LABS: MCH 27.2 pg (25.7-33.7); MCHC 31.1 g/dl (32.0-36.0); MEAN CELL VOLUME 87.3 fl (80-96); MEAN PLT VOLUME 8.4 fl (7.5-11.1); PLATELET COUNT 127 K/MM3 (134-434); RDW 15.7 % (11.6-15.6); WHITE BLOOD COUNT 3.6 K/mm3 (4.0-10.0)
[2017-08-24] MEDS: FUROSEMIDE 40 MG TABLET (FP) PO SCH ×2 (06:29→17:14)
[2017-08-24] MEDS: REPAGLINIDE 0.5 MG TABLET (FP) PO SCH (06:29)
[2017-08-24 07:31] LABS: MCHC 31.1 g/dl (32.0-36.0); MEAN CELL VOLUME 86.7 fl (80-96); MEAN PLT VOLUME 8.4 fl (7.5-11.1); PLATELET COUNT 107 K/MM3 (134-434); RDW 15.4 % (11.6-15.6)
[2017-08-24 07:42] LABS: ALBUMIN 3.1 g/dl (3.4-5.0); ANION GAP 12 (8-16); BILIRUBIN,TOTAL 0.3 mg/dL (0.2-1.0); C-REACTIVE PROTEIN 0.6 MG/DL (0.00-0.3); CALCIUM 7.2 mg/dL (8.5-10.1); CO2 23 mmol/L (21-32); CREATININE 6.9 mg/dL (0.55-1.02); GLUCOSE,RANDOM 97 mg/dL (74-106); SGOT/AST 17 U/L (15-37); SGPT/ALT 12 U/L (12-78); TOT PROT 6.2 g/dl (6.4-8.2)
[2017-08-24 07:43] LABS: ALK PHOS 94 U/L (45-117)
--- NOTE | 2017-08-24 08:53 | PN ---
Physical Exam: INFECTIOUS DISEASE SUBJECTIVE: Patient seen and examined. Last night peritoneal fluid was tapped due to ascites. Denies fevers/chills/CP/SOB OBJECTIVE: Vital Signs Period Temp Pulse Resp BP Sys/Reeves Pulse Ox Last 24 Hr 98.2 F-99.2 F 72-75 18-18 104-132/66-81 98-100 GEN: Awake, alert, not in distress, not ill appearing HEENT: PERRLA, EOMi CV: S1, S2, RRR LUNG: CTABL ABD: Soft, NT, ND MSK: R permacath site no erythema, no edema, no discharge Active Medications Generic Name Dose Route Start Last Admin Trade Name Freq PRN Reason Stop Dose Admin Amlodipine Besylate 5 mg 08/22/17 10:00 08/23/17 09:26 Norvasc - PO Not Given DAILY [facility] Doxazosin Mesylate 4 mg 08/22/17 10:00 08/23/17 09:26 Cardura - PO Not Given DAILY [facility] Epoetin Ignacio 20,000 units 08/24/17 08:02 Epogen - IVPUSH 08/24/17 08:03 ONCE ONE Furosemide 40 mg 08/22/17 06:00 08/24/17 06:29 Lasix - PO Not Given BIDLASIX [facility] Gabapentin 300 mg 08/22/17 10:00 08/23/17 09:26 Neurontin - PO Not Given DAILY [facility] Gentamicin Sulfate/Sodium Chloride 100 mls @ 100 mls/hr 08/24/17 08:04 Garamycin 80 Mg Premixed Ivpb - IVPB 08/24/17 09:03 ONCE ONE Vancomycin HCl 1,000 mg/ 250 mls @ 250 mls/hr 08/24/17 08:03 Dextrose IVPB 08/24/17 09:02 ONCE ONE Protocol Mycophenolate Mofetil 500 mg 08/21/17 22:00 08/23/17 21:39 Cellcept - PO Not Given BID [facility] Non-Formulary Medication 0.5 mg 08/21/17 22:00 Tacrolimus NR BID [facility] Repaglinide 1.5 mg 08/22/17 07:00 08/24/17 06:29 Prandin - PO Not Given DAILY@0700 [facility] Microbiology 08/21/17 09:19 Blood - Peripheral Venous Blood Culture - Preliminary NO GROWTH OBTAINED AFTER 48 HOURS, INCUBATION TO CONTINUE FOR 3 DAYS. 08/21/17 09:19 Blood - Peripheral Venous Blood Culture - Preliminary NO GROWTH OBTAINED AFTER 48 HOURS, INCUBATION TO CONTINUE FOR 3 DAYS. 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 faecalis. # Gram positive bacteremia - likely 2/2 infected permacath - Initial blood cx from HD center shows Enterococcus Faecalis (2 bottles) - Continue Vanc/Gent - Blood cx after removal of permacath has been negative - Plan for tunneled cath insertion as per vascular - ECHO - Monitor VS + CBC Discussed w/ Dr Tsang. Will follow Anthony Conner MD - PGY1 Infectious Disease Visit type - Emergency Visit Emergency Visit: No - New Patient This patient is new to me today: No - Critical Care Critical Care patient: No
[2017-08-24] MEDS ORDERED: PT OWN MED DRAWER 7, Y5N ONE ×2 (09:16→20:45)
[2017-08-24] MEDS: DOXAZOSIN MESYLATE 4 MG TABLET PO SCH (09:24)
[2017-08-24] MEDS: amLODIPine BESYLATE 5 MG TABLET (FP) PO SCH ×2 (09:25→09:45)
[2017-08-24] MEDS: MYCOPHENOLATE MOFETIL 500 MG TABLET PO SCH ×4 (09:25→21:48)
[2017-08-24] MEDS: GABAPENTIN 300 MG CAPSULE (FP) PO SCH ×3 (09:25→09:43)
[2017-08-24] MEDS ORDERED: GENTAMICIN 80 MG PREMIXED IVPB 100 ML IVPB ONE (12:30)
[2017-08-24] MEDS ORDERED: EPOETIN ALFA 20,000 UNIT/1 ML VIAL IVPUSH ONE (12:30)
[2017-08-24] MEDS ORDERED: ALTEPLASE 2 MG VIAL IVPUSH ONE ×2 (12:30→18:23)
[2017-08-24] MEDS ORDERED: VANCOMYCIN 1,000 MG in DEXTROSE 5%-WATER - 250 ML IVPB ONE ×2 (12:30→18:45)
--- NOTE | 2017-08-24 12:37 | PN ---
Teaching Attending Note Name of Resident: Anthony Conner ATTENDING PHYSICIAN STATEMENT I saw and evaluated the patient. I reviewed the resident's note and discussed the case with the resident. I agree with the resident's findings and plan as documented. SUBJECTIVE: Seen at dialysis Being dialyzed via femoral catheter No c/o fever/ chills OBJECTIVE: Non toxic appearing Cor S1S2 Lungs clear Abdomen soft, non tender ASSESSMENT AND PLAN: Enterococcal bactermia, catheter related ESRD Await final identification and susceptibilities Vancomycin theraputic Redose gentamicin
--- NOTE | 2017-08-24 15:29 | PN ---
Progress Note (short form) - Note Progress Note: Renal Follow up for ESRD on HD Pt seen and examined during dialysis attempting to use femoral catheter for dialysis but not able to obtain good blood flow used cathfo but still optimal blood flow not obtained pt without acute complaints no sob, chest pain, fever, chills Vital Signs Temperature 97.9 F 08/24/17 10:00 Pulse Rate 85 08/24/17 10:00 Respiratory Rate 18 08/24/17 10:00 Blood Pressure 144/89 08/24/17 10:00 O2 Sat by Pulse Oximetry (%) 100 08/24/17 09:00 Intake & Output 08/21/17 08/22/17 08/23/17 08/24/17 23:59 23:59 23:59 23:59 Intake Total 580 470 215 Output Total 1 1 Balance 579 470 214 Weight 156 lb 155 lb 15.985 oz 147 lb 14.4 oz NAD RRR CTA, no rales soft, less ascities No edema in LE catheter exit site is clean CBC, BMP 08/24/17 06:30 08/24/17 06:30 Current Medications Amlodipine Besylate (Norvasc -) 5 mg PO DAILY [facility] Last Admin: 08/24/17 09:45 Dose: Not Given Doxazosin Mesylate (Cardura -) 4 mg PO DAILY [facility] Last Admin: 08/24/17 09:24 Dose: Not Given Furosemide (Lasix -) 40 mg PO BIDLASIX [facility] Last Admin: 08/24/17 06:29 Dose: Not Given Gabapentin (Neurontin -) 300 mg PO DAILY [facility] Last Admin: 08/24/17 09:43 Dose: Not Given Mycophenolate Mofetil (Cellcept -) 500 mg PO BID [facility] Last Admin: 08/24/17 09:44 Dose: Not Given Non-Formulary Medication (Tacrolimus) 0.5 mg NR BID [facility] Repaglinide (Prandin -) 1.5 mg PO DAILY@0700 [facility] Last Admin: 08/24/17 06:29 Dose: Not Given A/P 62 year old woman with PMhx of 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 #Gram positive bactermia with suspected infected dialysis catheter Intial blood cultures from HD unit showed 2 bottles growing enterococcus F. Exit site culture grew Klebsella awaiting final culture report and sensitivity from [facility] Continue Vanco and Gent with HD peritoneal fluid cell count not indicative of infection, will follow fluid cultures cultures from admission remain negative for tunneled catheter insertion today #ESRD on HD will attempt dialysis again once tunneled catheter is placed #Liver Transplant continue Prograf and Cellcept pt to follow up with transplant hepatolgist on discharge #Leukopenia likely related to cellcept to follow up with transplant doctor and titrate as needed Inder Loza DO
--- NOTE | 2017-08-24 17:16 | PN ---
Progress Note, Physician History of Present Illness: Pt w/o fever, chills, SOB, CP, abd pain. - Current Medication List Current Medications: Active Medications Amlodipine Besylate (Norvasc -) 5 mg PO DAILY [facility] Last Admin: 08/24/17 09:45 Dose: Not Given Doxazosin Mesylate (Cardura -) 4 mg PO DAILY [facility] Last Admin: 08/24/17 09:24 Dose: Not Given Furosemide (Lasix -) 40 mg PO BIDLASIX [facility] Last Admin: 08/24/17 06:29 Dose: Not Given Gabapentin (Neurontin -) 300 mg PO DAILY [facility] Last Admin: 08/24/17 09:43 Dose: Not Given Mycophenolate Mofetil (Cellcept -) 500 mg PO BID [facility] Last Admin: 08/24/17 09:44 Dose: Not Given Non-Formulary Medication (Tacrolimus) 0.5 mg NR BID [facility] Repaglinide (Prandin -) 1.5 mg PO DAILY@0700 [facility] Last Admin: 08/24/17 06:29 Dose: Not Given - Objective Vital Signs: Vital Signs Temperature 98.4 F 08/24/17 14:23 Pulse Rate 76 08/24/17 14:23 Respiratory Rate 20 08/24/17 14:23 Blood Pressure 122/70 08/24/17 14:23 O2 Sat by Pulse Oximetry (%) 100 08/24/17 09:00 Constitutional: Yes: No Distress, Calm Cardiovascular: Yes: Regular Rate and Rhythm, S1, S2 Respiratory: Yes: Regular, CTA Bilaterally. No: Rales Gastrointestinal: Yes: Normal Bowel Sounds, Soft Edema: No Neurological: Yes: Alert, Oriented Labs: CBC, BMP 08/24/17 06:30 08/24/17 06:30 INR, PTT INR 1.12 (0.82-1.09) 08/21/17 10:43 Problem List - Problems (1) Bacteremia associated with intravascular line Code(s): T82.7XXA - INFECT/INFLM REACT D/T OTH CARDI/VASC DEV/IMPLNT/GRFT, INIT R78.81 - BACTEREMIA (2) ESRD (end stage renal disease) on dialysis Code(s): N18.6 - END STAGE RENAL DISEASE Z99.2 - DEPENDENCE ON RENAL DIALYSIS (3) Liver transplanted Code(s): Z94.4 - LIVER TRANSPLANT STATUS (4) Hypertension Code(s): I10 - ESSENTIAL (PRIMARY) HYPERTENSION (5) Leukopenia Assessment/Plan: pt on Cellcept Code(s): D72.819 - DECREASED WHITE BLOOD CELL COUNT, UNSPECIFIED Assessment/Plan Vasc SX Consult appreciated. ID consult appreciated. Renal consult appreciated. For Permacath today, then HD. ABtx per ID AM labs Case was d/w pt's nurse.
[2017-08-24] MEDS ORDERED: MIDAZOLAM HCL 2 MG/2 ML SINGLE DOSE VIAL ONE (17:32)
[2017-08-24] MEDS ORDERED: LIDOCAINE HCL 1%, 10 MG/ML (20ML VIAL) INF ONE (18:12)
--- NOTE | 2017-08-24 18:14 | OP ---
Operative Note - Note: Operative Date: 08/24/17 Pre-Operative Diagnosis: ESRD on HD Operation: Placement Permacath. Removal Shiley Implants: 23 cm Permacath Surgeon: Dread Flaherty Anesthesiologist/SPRUE KNOCKER: Ashish Pickard Anesthesia: Fractional
[2017-08-24] MEDS ORDERED: VANCOMYCIN 1,250 MG in DEXTROSE 5%-WATER - 250 ML IVPB ONE (18:23)
[2017-08-24] MEDS: GENTAMICIN 80 MG PREMIXED IVPB 100 ML IVPB ONE (20:49)
[2017-08-24] MEDS ORDERED: SEVELAMER CARBONATE 800 MG TAB (FP) PO SCH (22:00)
[2017-08-24] MEDS ORDERED: TACROLIMUS 0.5 MG CAPSULE PO SCH (22:00)
[2017-08-25] MEDS ORDERED: PT OWN MED DRAWER 7, Y5N ONE (05:45)
[2017-08-25 06:06] LABS: HEP B SURFACE AB Non Reactive (.)
[2017-08-25] MEDS: FUROSEMIDE 40 MG TABLET (FP) PO SCH ×2 (06:06→14:16)
--- NOTE | 2017-08-25 06:48 | OP ---
DATE OF OPERATION: 08/24/2017 SURGEON: Dread Galvin MD OPERATION: Placement of Perma-Cath under ultrasound guidance and removal of femoral Shiley. PREOPERATIVE DIAGNOSIS: End-stage renal disease on hemodialysis. POSTOPERATIVE DIAGNOSIS: End-stage renal disease on hemodialysis. ANESTHESIA: Fractional. ANESTHESIOLOGIST: Ashish Pickard MD OPERATIVE PROCEDURE: Following routine patient identification with side and site verification, intravenous sedation was established. The right neck and chest were prepped with ChloraPrep. Time-out was performed. Using real-time duplex imaging, the right internal jugular vein was identified. Lidocaine 1% was infiltrated in the skin lateral to the vein. The vein was cannulated under ultrasound guidance with a micropuncture needle. A flexible wire was passed proximally into the superior vena cava. The needle was exchanged for a 5-Amharic catheter. The wire was then exchanged for a J-tipped wire, which was advanced into the right atrium. Additional Xylocaine was infiltrated on the chest wall, and a stab wound made. A 19-cm tip-to-cuff Perma-Cath was advanced with a tunneler under the skin from chest to neck. The tractor on the wire was dilated, and the Perma-Cath introducer was passed over the wire and placed into the right atrium. The dilator and wire were removed. The introducer was then threaded with the Perma-Cath, which was advanced into the right atrium and the introducer peeled away. The tip of the catheter was manipulated to allow free flow of blood, which was aspirated with a 20-mL syringe from each lumen. Catheter was filled with saline and then heparin solution. The catheter was sutured to the skin at the exit site with 3-0 nylon, and the neck wound was closed with 3-0 Vicryl subcutaneous suture. Sterile dressings were applied. Attention was then turned to the right groin. The Shiley catheter was freed by cutting its suture and was removed. The pressure was held in the groin until bleeding ceased. A sterile dressing was applied. The patient was then taken to the recovery room for a chest x-ray. DREAD GALVIN M.D. [id number]
[2017-08-25] MEDS ORDERED: REPAGLINIDE 0.5 MG TABLET (FP) PO SCH (07:00)
[2017-08-25 07:41] LABS: MCH 27.1 pg (25.7-33.7); MEAN CELL VOLUME 87.5 fl (80-96); MEAN PLT VOLUME 8.6 fl (7.5-11.1); PLATELET COUNT 109 K/MM3 (134-434); RDW 15.3 % (11.6-15.6); WHITE BLOOD COUNT 2.7 K/mm3 (4.0-10.0)
--- NOTE | 2017-08-25 07:55 | PN ---
Progress Note (short form) - Note Progress Note: POD #1 Alert. States she had some oozing from permacath site last night. RN addressed by placing a pressure dressing....oozing resolved. Because of this, patient was extremely nervous about going for HD last night. AVSS. Afebrile. Gen: nad Right chest wall: PC intact. No hematoma. Right groin: dressing c/d/i. No hematoma Problem List - Problems (1) Bacteremia associated with intravascular line Assessment/Plan: POD #1 s/p insertion of permacath and removal of shiley Going for HD today Cleared for discharge home today from a surgical standpoint Cont care per medicine On behalf of Dr. Flaherty, thank you for the opportunity to participate in your patient's care. Code(s): T82.7XXA - INFECT/INFLM REACT D/T OTH CARDI/VASC DEV/IMPLNT/GRFT, INIT R78.81 - BACTEREMIA (2) ESRD (end stage renal disease) on dialysis Code(s): N18.6 - END STAGE RENAL DISEASE Z99.2 - DEPENDENCE ON RENAL DIALYSIS
[2017-08-25] MEDS ORDERED: SEVELAMER CARBONATE 800 MG TAB (FP) PO SCH (08:00)
[2017-08-25 08:30] LABS: ANION GAP 14 (8-16); CALCIUM 7.3 mg/dL (8.5-10.1); CO2 20 mmol/L (21-32); GLUCOSE,RANDOM 95 mg/dL (74-106)
[2017-08-25 08:52] LABS: CREATININE 7.6 mg/dL (0.55-1.02)
[2017-08-25] MEDS ORDERED: DOXAZOSIN MESYLATE 4 MG TABLET PO SCH (10:00)
[2017-08-25] MEDS ORDERED: GABAPENTIN 300 MG CAPSULE (FP) PO SCH (10:00)
[2017-08-25] MEDS ORDERED: amLODIPine BESYLATE 5 MG TABLET (FP) PO SCH (10:00)
--- NOTE | 2017-08-25 10:55 | PN ---
Physical Exam: SUBJECTIVE: Patient seen and examined, receiving dialysis. POD #1 from new permacath insertion. Afebrile overnight. No fevers, chills, CP, SOB. OBJECTIVE: Vital Signs Period Temp Pulse Resp BP Sys/Reeves Pulse Ox Last 24 Hr 97.6 F-98.9 F 69-85 16-20 122-152/70-89 96-100 GEN: Awake, alert, not in distress, not ill appearing HEENT: PERRLA, EOMi CV: S1, S2, RRR LUNG: CTABL ABD: Soft, NT, ND MSK: New R permacath site bandaged. Active Medications Generic Name Dose Route Start Last Admin Trade Name Freq PRN Reason Stop Dose Admin Amlodipine Besylate 5 mg 08/25/17 10:00 Norvasc - PO DAILY ANALIA Doxazosin Mesylate 4 mg 08/25/17 10:00 Cardura - PO DAILY ANALIA Furosemide 40 mg 08/25/17 06:00 08/25/17 06:06 Lasix - PO Not Given BIDLASIX ANALIA Gabapentin 300 mg 08/25/17 10:00 Neurontin - PO DAILY ANALIA Mycophenolate Mofetil 500 mg 08/24/17 22:00 08/24/17 21:48 Cellcept - PO Not Given BID ANALIA Repaglinide 1.5 mg 08/25/17 07:00 08/25/17 06:07 Prandin - PO Not Given DAILY@0700 [facility] Sevelamer Carbonate 800 mg 08/25/17 08:00 Renvela - PO BIDWM [facility] Tacrolimus 0.5 mg 08/24/17 22:00 Prograf (Non-Formulary) PO BID [facility] ASSESSMENT/PLAN: 62 year old woman with PMhx of 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 faecalis. # Gram positive bacteremia - likely 2/2 infected permacath - Initial blood cx from HD center shows Enterococcus Faecalis (2 bottles) - Currently on Vanc/Gent, for total 4 weeks - Obtain trough of Vanc/Gent during OP dialysis - Blood cx after removal of permacath has been negative to date; repeat - New permacath placed yesterday - Negative jugular vein thrombus - Monitor VS + CBC Will discuss w/ Dr Tsang. Will follow Anthony Conner MD - PGY1 Infectious Disease Visit type - Emergency Visit Emergency Visit: No - New Patient This patient is new to me today: No - Critical Care Critical Care patient: No - Discharge Referral Referred to [facility] No
--- NOTE | 2017-08-25 12:37 | PN ---
Teaching Attending Note Name of Resident: Anthony Conner ATTENDING PHYSICIAN STATEMENT I saw and evaluated the patient. I reviewed the resident's note and discussed the case with the resident. I agree with the resident's findings and plan as documented. SUBJECTIVE: Pt seen on dialysis No complaints No fever/ chills OBJECTIVE: Afebrile Cor S1S2 Lungs clear Abdomen soft, non tender ASSESSMENT AND PLAN: Enterococcal catheter-related bacteremia ESRD Day # 4 antibiotics Outpatient antibiotic regimen: Vancomycin dosed at HD for total 4w Gentamicin dosed at HD for total 2w
--- NOTE | 2017-08-25 12:49 | DS ---
Physical Examination Vital Signs: Vital Signs Temperature 97.6 F 08/25/17 05:54 Pulse Rate 78 08/25/17 12:00 Respiratory Rate 18 08/25/17 12:00 Blood Pressure 113/71 08/25/17 12:00 O2 Sat by Pulse Oximetry (%) 96 08/24/17 21:00 Findings/Remarks: Pt w/o F, C, dizziness, CP, palp, Abd pain, N, V. Constitutional: Yes: No Distress, Calm Cardiovascular: Yes: Regular Rate and Rhythm, S1, S2 Respiratory: Yes: Regular, CTA Bilaterally. No: Rales Gastrointestinal: Yes: Normal Bowel Sounds, Soft. No: Tenderness Edema: No Neurological: Yes: Alert, Oriented Labs: CBC, BMP 08/25/17 06:30 08/25/17 06:30 Discharge Summary Reason For Visit: VASCULAR CATHERTER INF Current Active Problems Bacteremia associated with intravascular line (Acute) ESRD (end stage renal disease) on dialysis (Acute) Hypertension (Acute) Leukopenia (Acute) Line sepsis associated with dialysis catheter (Acute) Liver transplanted (Acute) Procedures: Principal: Permacath placement. ECHO Other Procedures: CXR Hospital Course: Pt was sent to ER from HD center as BCX were positive for E Faecalis. Pt's right permacath was removed and a temporary HD cath was placed in the groin; pt had BCX sent again, negative to date (day 4/5); pt was started on Abtx (Gent and Vanco). Pt was seen in consult by vasc Sx (Dr. Flaherty), Renal (Dr. Morrow/ Dago), ID (Dr. Rooney/ Sharan). Pt was noticed to have stable low WBC, to by monitored and reevaluated as outpatient. Pt's permacath was placed last night, would have HD today and if tolerated well to be DC'ed home later; pt needs to finish 2 weeks of Gent and 4 weeks of Vanco, both to be given at HD. Condition: Stable - Instructions Diet, Activity, Other Instructions: Resume Diet (Renal, low salt) To see own Liver transplant doctor in 1-2 weeks. Referrals: Petrona Palacio [Primary Care Provider] - Gerardo Palacio MD [Staff Physician] - (in 1-2 weeks) Sera Morrow MD [Staff Physician] - (at HD) Disposition: HOME - Home Medications Comprehensive Discharge Medication List: Ambulatory Orders This list might NOT be accurate. Amlodipine Besylate [Norvasc -] 10 mg PO DAILY 07/06/17 Doxazosin Mesylate 4 mg PO HS 07/06/17 Furosemide [Lasix] 80 mg PO DAILY 07/06/17 Gabapentin 300 mg PO BID 07/06/17 Mycophenolate Mofetil [Cellcept] 500 mg PO BID 07/06/17 Repaglinide [Prandin] 0.5 mg PO BIDAC 07/06/17 Tacrolimus [Prograf (Non-Formulary)] 1 mg PO BID 07/06/17 Sevelamer Carbonate [Renvela] 800 mg PO BID 08/24/17
--- NOTE | 2017-08-25 13:04 | PN ---
Progress Note (short form) - Note Progress Note: Renal Follow up for ESRD on HD Pt seen and examined during dialysis getting HD via tunneled HD catheter access functioning well BP stable Goal UF is 2.5L Vital Signs Temperature 97.6 F 08/25/17 05:54 Pulse Rate 78 08/25/17 12:00 Respiratory Rate 18 08/25/17 12:00 Blood Pressure 113/71 08/25/17 12:00 O2 Sat by Pulse Oximetry (%) 96 08/24/17 21:00 Intake & Output 08/22/17 08/23/17 08/24/17 08/25/17 23:59 23:59 23:59 23:59 Intake Total 580 470 465 260 Output Total 1 1 Balance 579 470 464 260 Weight 155 lb 15.985 oz 147 lb 14.4 oz NAD RRR CTA, no rales soft, less ascities No edema in LE catheter exit site is clean CBC, BMP 08/25/17 06:30 08/25/17 06:30 Laboratory Tests 08/25/17 06:30 Calcium 7.3 L Current Medications Amlodipine Besylate (Norvasc -) 5 mg PO DAILY [facility] Doxazosin Mesylate (Cardura -) 4 mg PO DAILY [facility] Furosemide (Lasix -) 40 mg PO BIDLASIX [facility] Last Admin: 08/25/17 06:06 Dose: Not Given Gabapentin (Neurontin -) 300 mg PO DAILY [facility] Mycophenolate Mofetil (Cellcept -) 500 mg PO BID [facility] Last Admin: 08/24/17 21:48 Dose: Not Given Repaglinide (Prandin -) 1.5 mg PO DAILY@0700 [facility] Last Admin: 08/25/17 06:07 Dose: Not Given Sevelamer Carbonate (Renvela -) 800 mg PO BIDWM [facility] Tacrolimus (Prograf (Non-Formulary)) 0.5 mg PO BID [facility] A/P 62 year old woman with PMhx of 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 #Gram positive bactermia with suspected infected dialysis catheter Intial blood cultures from HD unit showed 2 bottles growing enterococcus F. Exit site culture grew Klebsella inpatient blood cultures w/o growth continue Vanco x 4 weeks and Gent x 2 weeks per ID recs can get Abx with HD #ESRD on HD tolerating HD well #Liver Transplant continue Prograf and Cellcept pt to follow up with transplant hepatolgist on discharge #Leukopenia likely related to cellcept to follow up with transplant doctor and titrate as needed Inder Loza DO
[2017-08-25] MEDS: EPOETIN ALFA 20,000 UNIT/1 ML VIAL IVPUSH ONE ×2 (13:20→14:16)
[2017-08-25] MEDS: GENTAMICIN 80 MG PREMIXED IVPB 100 ML IVPB ONE (13:30)
[2017-08-25] MEDS: MYCOPHENOLATE MOFETIL 500 MG TABLET PO SCH (14:15)
[2017-08-25 15:11] VITALS: TEMP 98.9
[2017-08-25 15:51] VITALS: BP 125/72; PULSE 86
--- NOTE | 2017-08-25 16:14 | PATH ---
Cytology Non-Gynecological Report Patient Name: STEPHEN MCKEON Med. Rec. #: [id number] /Age/Gender: 1955 (Age: 62) / F Account: [id number] Location: [address] [place] [address]/[facility] Taken: 08/23/2017 Received: 08/24/2017 Reported: 08/25/2017 Physicians: Maliha Gonzalez M.D. PHYSICIAN EMERGENCY DEPT Specimen(s) Received A: PERITONEAL FLUID RECEIVED IN 50% ALCOHOL B: PERITONEAL FLUID RECEIVED UNFIXED Clinical History ESRD Final Diagnosis A. PERITONEAL FLUID FOR CYTOLOGY: SATISFACTORY FOR EVALUATION. NO MALIGNANT CELLS IDENTIFIED. MESOTHELIAL CELLS, FEW MACROPHAGES, FEW LYMPHOCYTES, AND RARE NEUTROPHILS PRESENT. B. PERITONEAL FLUID FOR CYTOLOGY: SATISFACTORY FOR EVALUATION. NO MALIGNANT CELLS IDENTIFIED. FEW MESOTHELIAL CELLS AND RARE LYMPHOCYTES PRESENT. Electronically Signed Jimena Baptiste M.D. Gross Description A. Approximately 50 cc of yellow fluid received fixed in 50% alcohol. Two cytofunnels and one cellblock prepared. B. Approximately 4000 cc of yellow fluid received fresh. Two cytofunnels and one cellblock prepared.
--- NOTE | 2017-08-26 11:42 | PATH ---
Surgical Pathology Report Patient Name: STEPHEN MCKEON Med. Rec. #: [id number] /Age/Gender: 1955 (Age: 62) / F Account: [id number] Location: [address] [place] [address]/[facility] Taken: 08/24/2017 Received: 08/25/2017 Reported: 08/26/2017 Physicians: Dread Flaherty M.D. Specimen(s) Received OLD SHILEY CATHETER Clinical History End stage renal disease Final Diagnosis MEDICAL LAB SPECIALIST, REMOVAL: DOUBLE LUMEN CATHETER CONSISTENT WITH SHILEY CATHETER (GROSS ONLY). Electronically Signed Hugh Estrada M.D. Gross Description Received fresh labeled "old Shiley catheter," is a 33 cm in length double lumen catheter. The end of the specimen is wrapped in gauze. No soft tissue is present. No sections are submitted, gross only. /08/25/2017 saudi08/25/2017
== END 2017-08-25 15:09 | disposition home or self-care (01) | DRG 314 ==
LOC: JER 08:34 → JERBED 10:28 → J5S 08-23 16:54
PROVIDERS: ADMIT Specialist; ATTEND Specialist
PROC: 06HM33Z Insertion of Infusion Device into Right Femoral Vein, Percutaneous Approach (ICD-10-PCS; principal; 2017-08-21)
PROC: B51BZZA Fluoroscopy of Right Lower Extremity Veins, Guidance (ICD-10-PCS; 2017-08-21)
PROC: 5A1D70Z Performance of Urinary Filtration, Intermittent, Less than 6 Hours Per Day (ICD-10-PCS; 2017-08-21)
PROC: 06PYX3Z Removal of Infusion Device from Lower Vein, External Approach (ICD-10-PCS; 2017-08-21)
PROC: 06HM33Z Insertion of Infusion Device into Right Femoral Vein, Percutaneous Approach (ICD-10-PCS; 2017-08-21)
PROC: B51BZZA Fluoroscopy of Right Lower Extremity Veins, Guidance (ICD-10-PCS; 2017-08-21)
PROC: 0W9G3ZZ Drainage of Peritoneal Cavity, Percutaneous Approach (ICD-10-PCS; 2017-08-23)
PROC: 05HM33Z Insertion of Infusion Device into Right Internal Jugular Vein, Percutaneous Approach (ICD-10-PCS; 2017-08-24)
PROC: B513ZZA Fluoroscopy of Right Jugular Veins, Guidance (ICD-10-PCS; 2017-08-24)
PROC: B543ZZA Ultrasonography of Right Jugular Veins, Guidance (ICD-10-PCS; 2017-08-24)
DX: T80.211A Bloodstream infection due to central venous catheter, initial encounter (principal); N18.6 End stage renal disease; R78.81 Bacteremia; I12.0 Hypertensive chronic kidney disease with stage 5 chronic kidney disease or end stage renal disease; Z94.4 Liver transplant status; R18.8 Other ascites; B96.1 Klebsiella pneumoniae [K. pneumoniae] as the cause of diseases classified elsewhere; T45.1X1A Poisoning by antineoplastic and immunosuppressive drugs, accidental (unintentional), initial encounter; Y92.038 Other place in apartment as the place of occurrence of the external cause; B96.89 Other specified bacterial agents as the cause of diseases classified elsewhere; B95.2 Enterococcus as the cause of diseases classified elsewhere; E11.22 Type 2 diabetes mellitus with diabetic chronic kidney disease; Z99.2 Dependence on renal dialysis; Z87.891 Personal history of nicotine dependence; D72.819 Decreased white blood cell count, unspecified
CPT/HCPCS: 36415; 71010-TC; 76000-TC; 76536-TC; 76942-TC; 80048; 80053; 82042; 82150; 82945; 83615; 84157; 84478; 85025; 85027; 85610; 85651; 86140; 86704; 86706; 86708; 86803; 86850; 86900; 86901; 87040; 87070; 87075; 87102; 87116; 87205; 87206; 87210; 87340; 87522; 87899; 88108; 88300-TC; 88305-TC; 89051; 93005; 93010; 93306-TC; 94760; 99285-25; G0480; J0885; J1644; J2997; J7517

== ENCOUNTER → 2017-10-08 | Day surgery (SDC) | payer OTHER, MEDICARE ==
[2017-10-08 09:34] LABS: INR 1.19 (0.82-1.09); PROTHROMBIN TIME (PATIENT) 13.5 SEC (9.98-11.88)
== END | disposition home or self-care (01) ==
LOC: JRADIR 08:28
PROVIDERS: ATTEND Internal Medicine Nephrology
PROC: 0W9G3ZZ Drainage of Peritoneal Cavity, Percutaneous Approach (ICD-10-PCS; principal; 2017-10-08)
PROC: BW40ZZZ Ultrasonography of Abdomen (ICD-10-PCS; 2017-10-08)
DX: R18.8 Other ascites (principal)
CPT/HCPCS: 36415; 76942-TC; 85610

== ENCOUNTER → 2017-11-05 | Day surgery (SDC) | payer OTHER, MEDICARE | END | disposition home or self-care (01) | LOC: JRADIR 09:12 | PROVIDERS: ATTEND Internal Medicine Gastroenterology | PROC: 0W9G3ZZ Drainage of Peritoneal Cavity, Percutaneous Approach (ICD-10-PCS; principal; 2017-11-05) | PROC: BW40ZZZ Ultrasonography of Abdomen (ICD-10-PCS; 2017-11-05) | DX: R18.8 Other ascites (principal) | CPT/HCPCS: 76942-TC ==

== ENCOUNTER → 2017-11-29 | Day surgery (SDC) | payer OTHER, MEDICARE ==
[2017-11-29 09:11] LABS: BASO % 0.9 % (0-2.0); EOS % 0.7 % (0-4.5); HEMATOCRIT 29.5 % (32.4-45.2); LYMPH % 16.2 % (8-40); MCH 26.7 pg (25.7-33.7); MCHC 30.5 g/dl (32.0-36.0); MEAN CELL VOLUME 87.7 fl (80-96); MEAN PLT VOLUME 8.7 fl (7.5-11.1); MONO % 10.7 % (3.8-10.2); NEUT % 71.5 % (42.8-82.8); PLATELET COUNT 117 K/MM3 (134-434); RBC 3.36 M/mm3 (3.60-5.2); RDW 16.3 % (11.6-15.6); WHITE BLOOD COUNT 2.9 K/mm3 (4.0-10.0)
[2017-11-29 09:19] LABS: INR 1.14 (0.82-1.09); PROTHROMBIN TIME (PATIENT) 12.9 SEC (9.98-11.88)
== END | disposition home or self-care (01) ==
LOC: JRADIR 08:02
PROVIDERS: ATTEND Internal Medicine Gastroenterology
PROC: 0W9G3ZZ Drainage of Peritoneal Cavity, Percutaneous Approach (ICD-10-PCS; principal; 2017-11-29)
PROC: BW40ZZZ Ultrasonography of Abdomen (ICD-10-PCS; 2017-11-29)
DX: R18.8 Other ascites (principal)
CPT/HCPCS: 36415; 76942-TC; 85025; 85610

== ENCOUNTER → 2017-12-24 | Day surgery (SDC) | payer OTHER, MEDICARE | END | disposition home or self-care (01) | LOC: JRADIR 10:09 | PROVIDERS: ATTEND Internal Medicine Gastroenterology | PROC: 0W9G3ZZ Drainage of Peritoneal Cavity, Percutaneous Approach (ICD-10-PCS; principal; 2017-12-24) | PROC: BW40ZZZ Ultrasonography of Abdomen (ICD-10-PCS; 2017-12-24) | DX: R18.8 Other ascites (principal) | CPT/HCPCS: 49083; 76942-TC ==

== ENCOUNTER → 2018-01-17 | Day surgery (SDC) | payer OTHER, MEDICARE ==
[2018-01-17 09:41] LABS: BASO % 0.6 % (0-2.0); EOS % 1.1 % (0-4.5); HEMATOCRIT 32.4 % (32.4-45.2); HEMOGLOBIN 10.3 GM/dL (10.7-15.3); LYMPH % 14.8 % (8-40); MCHC 31.8 g/dl (32.0-36.0); MEAN CELL VOLUME 88.3 fl (80-96); MEAN PLT VOLUME 7.7 fl (7.5-11.1); MONO % 9.2 % (3.8-10.2); NEUT % 74.3 % (42.8-82.8); PLATELET COUNT 131 K/MM3 (134-434); RBC 3.67 M/mm3 (3.60-5.2); RDW 17.4 % (11.6-15.6)
[2018-01-17 09:57] LABS: INR 1.16 (0.82-1.09); PROTHROMBIN TIME (PATIENT) 13.1 SEC (9.98-11.88)
== END | disposition home or self-care (01) ==
LOC: JRADIR 09:15
PROVIDERS: ATTEND Internal Medicine Gastroenterology
PROC: 0W9G3ZZ Drainage of Peritoneal Cavity, Percutaneous Approach (ICD-10-PCS; principal; 2018-01-17)
DX: R18.8 Other ascites (principal)
CPT/HCPCS: 36415; 49082; 76942-TC; 85025; 85610

== ENCOUNTER → 2018-02-21 | Day surgery (SDC) | payer OTHER, MEDICARE ==
[2018-02-21 10:38] LABS: BASO % 0.8 % (0-2.0); EOS % 1.1 % (0-4.5); HEMATOCRIT 35.1 % (32.4-45.2); HEMOGLOBIN 11.1 GM/dL (10.7-15.3); LYMPH % 17.1 % (8-40); MCH 27.9 pg (25.7-33.7); MCHC 31.6 g/dl (32.0-36.0); MEAN CELL VOLUME 88.3 fl (80-96); MEAN PLT VOLUME 8.6 fl (7.5-11.1); MONO % 11.5 % (3.8-10.2); NEUT % 69.5 % (42.8-82.8); PLATELET COUNT 138 K/MM3 (134-434); RBC 3.97 M/mm3 (3.60-5.2); RDW 17.5 % (11.6-15.6)
[2018-02-21 10:52] LABS: INR 1.15 (0.82-1.09)
== END | disposition home or self-care (01) ==
LOC: JRADIR 10:10
PROVIDERS: ATTEND Internal Medicine Gastroenterology
PROC: 0W9G3ZZ Drainage of Peritoneal Cavity, Percutaneous Approach (ICD-10-PCS; principal; 2018-02-21)
PROC: BW40ZZZ Ultrasonography of Abdomen (ICD-10-PCS; 2018-02-21)
DX: R18.8 Other ascites (principal)
CPT/HCPCS: 36415; 76942-TC; 85025; 85610

== ENCOUNTER → 2018-03-21 | Day surgery (SDC) | payer OTHER, MEDICARE | END | disposition home or self-care (01) | LOC: JRADIR 10:42 | PROVIDERS: ATTEND Internal Medicine Gastroenterology | PROC: 0W9G3ZZ Drainage of Peritoneal Cavity, Percutaneous Approach (ICD-10-PCS; principal; 2018-03-21) | PROC: BW40ZZZ Ultrasonography of Abdomen (ICD-10-PCS; 2018-03-21) | DX: R18.8 Other ascites (principal) | CPT/HCPCS: 76942-TC ==

== ENCOUNTER → 2018-05-06 | Day surgery (SDC) | payer OTHER, MEDICARE | END | disposition home or self-care (01) | LOC: JRADIR 09:46 | PROVIDERS: ATTEND Internal Medicine Gastroenterology | PROC: 0W9G3ZZ Drainage of Peritoneal Cavity, Percutaneous Approach (ICD-10-PCS; principal; 2018-05-06) | PROC: BW40ZZZ Ultrasonography of Abdomen (ICD-10-PCS; 2018-05-06) | DX: R18.8 Other ascites (principal) | CPT/HCPCS: 76942-TC ==

== ENCOUNTER → 2018-06-03 | Day surgery (SDC) | payer OTHER, MEDICARE | END | disposition home or self-care (01) | LOC: JRADIR 09:42 | PROVIDERS: ATTEND Internal Medicine Gastroenterology | PROC: 0W9G3ZZ Drainage of Peritoneal Cavity, Percutaneous Approach (ICD-10-PCS; principal; 2018-06-03) | PROC: BW40ZZZ Ultrasonography of Abdomen (ICD-10-PCS; 2018-06-03) | DX: R18.8 Other ascites (principal) | CPT/HCPCS: 49083; 76942-TC ==

== ENCOUNTER → 2018-06-24 | Day surgery (SDC) | payer OTHER, MEDICARE | END | disposition home or self-care (01) | LOC: JRADIR 09:54 | PROVIDERS: ATTEND Internal Medicine Gastroenterology | PROC: 0W9G3ZZ Drainage of Peritoneal Cavity, Percutaneous Approach (ICD-10-PCS; principal; 2018-06-24) | PROC: BW40ZZZ Ultrasonography of Abdomen (ICD-10-PCS; 2018-06-24) | DX: R18.8 Other ascites (principal) | CPT/HCPCS: 76942-TC ==

== ENCOUNTER → 2018-07-20 | Day surgery (SDC) | payer OTHER, MEDICARE | END | disposition home or self-care (01) | LOC: JRADIR 09:26 | PROVIDERS: ATTEND Internal Medicine Gastroenterology | PROC: 0W9G3ZZ Drainage of Peritoneal Cavity, Percutaneous Approach (ICD-10-PCS; principal; 2018-07-20) | PROC: BW40ZZZ Ultrasonography of Abdomen (ICD-10-PCS; 2018-07-20) | DX: R18.8 Other ascites (principal) | CPT/HCPCS: 76942-TC ==

== ENCOUNTER → 2018-09-23 | Day surgery (SDC) | payer OTHER, MEDICARE ==
[2018-09-23 09:51] LABS: HEMATOCRIT 39.6 % (32.4-45.2); HEMOGLOBIN 12.8 GM/dL (10.7-15.3); MCH 30.5 pg (25.7-33.7); MCHC 32.2 g/dl (32.0-36.0); MEAN CELL VOLUME 94.7 fl (80-96); PLATELET COUNT 111 K/MM3 (134-434); RBC 4.18 M/mm3 (3.60-5.2); RDW 16.5 % (11.6-15.6); WHITE BLOOD COUNT 3.2 K/mm3 (4.0-10.0)
[2018-09-23 10:21] LABS: INR 1.14 (0.83-1.09); PROTHROMBIN TIME (PATIENT) 13.5 SEC (9.7-13.0)
== END | disposition home or self-care (01) ==
LOC: EDSTATUS 09:00 → JRADIR 09:23
PROVIDERS: ATTEND Internal Medicine Gastroenterology
PROC: 0W9G3ZZ Drainage of Peritoneal Cavity, Percutaneous Approach (ICD-10-PCS; principal; 2018-09-23)
PROC: BW40ZZZ Ultrasonography of Abdomen (ICD-10-PCS; 2018-09-23)
DX: R18.8 Other ascites (principal)
CPT/HCPCS: 36415; 76942-TC; 85027; 85610

== ENCOUNTER → 2018-10-19 | Day surgery (SDC) | payer OTHER, MEDICARE | END | disposition home or self-care (01) | LOC: JRADIR 08:50 | PROVIDERS: ATTEND Internal Medicine Gastroenterology | PROC: 0W9G3ZZ Drainage of Peritoneal Cavity, Percutaneous Approach (ICD-10-PCS; principal; 2018-10-19) | PROC: BW40ZZZ Ultrasonography of Abdomen (ICD-10-PCS; 2018-10-19) | DX: R18.8 Other ascites (principal) | CPT/HCPCS: 76942-TC ==

== ENCOUNTER → 2018-11-30 | Day surgery (SDC) | payer OTHER, MEDICARE | END | disposition home or self-care (01) | LOC: JRADIR 10:24 | PROVIDERS: ATTEND Internal Medicine Gastroenterology | PROC: 0W9G3ZZ Drainage of Peritoneal Cavity, Percutaneous Approach (ICD-10-PCS; principal; 2018-11-30) | PROC: BW40ZZZ Ultrasonography of Abdomen (ICD-10-PCS; 2018-11-30) | DX: R18.8 Other ascites (principal) | CPT/HCPCS: 76942-TC ==

== ENCOUNTER → 2019-01-06 | Day surgery (SDC) | payer OTHER, MEDICARE | END | disposition home or self-care (01) | LOC: JRADIR 09:39 | PROVIDERS: ATTEND Internal Medicine Gastroenterology | PROC: 0W9G3ZZ Drainage of Peritoneal Cavity, Percutaneous Approach (ICD-10-PCS; principal; 2019-01-06) | PROC: BW40ZZZ Ultrasonography of Abdomen (ICD-10-PCS; 2019-01-06) | DX: R18.8 Other ascites (principal) | CPT/HCPCS: 76942-TC ==

== ENCOUNTER → 2019-02-08 | Day surgery (SDC) | payer OTHER, MEDICARE ==
[2019-02-08 09:49] LABS: EOS % 1.8 % (0-4.5); HEMATOCRIT 34.3 % (32.4-45.2); HEMOGLOBIN 11.3 GM/dL (10.7-15.3); LYMPH % 24.1 % (8-40); MCH 31.4 pg (25.7-33.7); MEAN CELL VOLUME 95.2 fl (80-96); MEAN PLT VOLUME 9.7 fl (7.5-11.1); MONO % 11.6 % (3.8-10.2); NEUT % 61.5 % (42.8-82.8); PLATELET COUNT 110 K/MM3 (134-434); WHITE BLOOD COUNT 2.5 K/mm3 (4.0-10.0)
[2019-02-08 10:11] LABS: INR 1.12 (0.83-1.09); PROTHROMBIN TIME (PATIENT) 13.2 SEC (9.7-13.0)
[2019-02-08 10:15] LABS: ALBUMIN 3.1 g/dl (3.4-5.0); ALK PHOS 129 U/L (45-117); ANION GAP 9 MMOL/L (8-16); BILIRUBIN,DIRECT 0.2 mg/dL (0.0-0.2); BILIRUBIN,TOTAL 0.4 mg/dL (0.2-1); BLOOD UREA NITROGEN 36 mg/dL (7-18); CALCIUM 8.3 mg/dL (8.5-10.1); CHLORIDE 101 mmol/L (98-107); CO2 27 mmol/L (21-32); CREATININE 4.9 mg/dL (0.55-1.3); GLUCOSE,RANDOM 173 mg/dL (74-106); POTASSIUM 3.6 mmol/L (3.5-5.1); SGOT/AST 22 U/L (15-37); SGPT/ALT 20 U/L (13-61); SODIUM 137 mmol/L (136-145); TOT PROT 7.8 g/dl (6.4-8.2)
== END ==
LOC: JRADIR 09:19
PROVIDERS: ATTEND Internal Medicine Gastroenterology
DX: K74.60 Unspecified cirrhosis of liver (principal); R18.8 Other ascites
CPT/HCPCS: 36415; 49083; 80048; 80076; 85025; 85610

== ENCOUNTER → 2019-03-10 | Day surgery (SDC) | payer OTHER, MEDICARE | END | disposition home or self-care (01) | LOC: JRADIR 10:59 | PROVIDERS: ATTEND Internal Medicine Gastroenterology | PROC: 0W9G3ZZ Drainage of Peritoneal Cavity, Percutaneous Approach (ICD-10-PCS; principal; 2019-03-10) | DX: R18.8 Other ascites (principal) | CPT/HCPCS: 76942-TC ==

== ENCOUNTER → 2019-04-24 | Day surgery (SDC) | payer OTHER, MEDICARE | LOC: JRADIR 09:12 ==

== ENCOUNTER → 2019-06-14 | Day surgery (SDC) | payer OTHER, MEDICARE | END | disposition home or self-care (01) | LOC: JRADIR 09:29 | PROVIDERS: ATTEND Internal Medicine Gastroenterology | PROC: 0W9G3ZZ Drainage of Peritoneal Cavity, Percutaneous Approach (ICD-10-PCS; principal; 2019-06-14) | PROC: BW40ZZZ Ultrasonography of Abdomen (ICD-10-PCS; 2019-06-14) | DX: R18.8 Other ascites (principal) | CPT/HCPCS: 76942-TC ==

== ENCOUNTER 2019-07-11 16:37 | Inpatient (IN) | payer OTHER, MEDICARE ==
[2019-07-11] MEDS ORDERED: ACETAMINOPHEN 1000 MG/100 ML VIAL (NON FORMULARY) IVPB ONE (19:32)
--- NOTE | 2019-07-11 19:32 | PDOC ---
History of Present Illness - General Chief Complaint: SIRS, Suspected/Possible Stated Complaint: SICK - History of Present Illness Initial Comments: Sandra Hurt is a 64yo woman with a PMH of ESRD on HD (TThSa), liver failure s/p transplant, hepC (treated), DM2, HTN who presents with 3 days of generalized weakness and diarrhea. Per her daughter, she also "doesn't sound like herself" today. Ms Hurt reports that she had 3-4 episodes of watery diarrhea per day staring on Wednesday. She was able to complete her normal daily activities on Wednesday and yesterday, though she states that she felt increasingly weak both days. Today, she felt so weak that she was unable to get out of bed and missed dialysis. Her daughter reports that she has not seen her mother this week for several years. The daughter and were unable to get Ms Hurt out to the car to come to the hospital so called an ambulance. Ms Hurt denies any fevers at home, difficulty breathing, chest pain, nausea /vomiting, or dysuria. She does endorse poor appetite today. Past History - Past Medical History Allergies/Adverse Reactions: Allergies Allergy/AdvReac Type Severity Reaction Status Date / Time No Known Allergies Allergy Verified 07/07/17 14:14 Home Medications: Ambulatory Orders Amlodipine Besylate [Norvasc -] 10 mg PO DAILY 07/06/17 Doxazosin Mesylate 4 mg PO HS 07/06/17 Furosemide [Lasix] 80 mg PO BID 07/06/17 Gabapentin 300 mg PO BID 07/06/17 Tacrolimus Anhydrous [Prograf] 0.5 mg PO BID 07/06/17 Sevelamer Carbonate [Renvela -] 800 mg PO BID 08/24/17 Folic Acid 0.84 mg PO DAILY 07/11/19 Folic Acid/Vit B Complex and C [Dialyvite 800 Chewable Wafer] 800 mcg PO BID 01/24 Anemia: No Asthma: No Cancer: No Cardiac Disorders: No CVA: No COPD: No CHF: No Dementia: No Diabetes: Yes Dialysis: Yes GI Disorders: No HTN: Yes Hypercholesterolemia: No Liver Disease: Yes (LIVER TRANSPLANT 2004) Seizures: No Thyroid Disease: No - Surgical History Cholecystectomy: Yes - Suicide/Smoking/Psychosocial Hx Smoking History: Smoker current status UNK Have you smoked in the past 12 months: No If you are a former smoker, when did you quit?: 2013 Information on smoking cessation initiated: No Hx Alcohol Use: No Drug/Substance Use Hx: No Substance Use Type: None Hx Substance Use Treatment: No Review of Systems - Review of Systems Comments:: General: No fevers, no chills, +Poor appetite, +Malaise HEENT: No changes in vision, no changes in hearing, no congestion, no sore throat CV: No chest pain, no palpitations, no LE edema Pulm: No SOB, no cough, no wheezing GI: No nausea or vomiting, +diarrhea, +abdominal pain, +ascites : No frequency, no urgency, no dysuria. +On dialysis Musc: No back pain, no joint swelling, no recent injury Skin: No rash, no lesions, no erythema Endo: No excessive thirst, no heat/cold intolerance Heme: No unusual bruising or bleeding, no swollen glands Neuro: No syncope, no numbness/tingling, no focal weakness Vasc: No claudication Psych: No recent change in mood, no SI or HI *Physical Exam - Vital Signs Last Vital Signs Temp Pulse Resp BP Pulse Ox 101.5 F H 102 H 20 105/64 96 07/11/19 17:31 07/11/19 17:31 07/11/19 17:31 07/11/19 17:31 07/11/19 17:31 - Physical Exam Comments: General: Comfortable, no acute distress HEENT: PERRL, EOMI, MMM, voice normal, normal neck ROM, no LAD Cards: RRR, no murmur appreciated Pulm: Comfortable on room air, clear to auscultation bilaterally Abd: Soft, nontender. +Distended, c/w ascites : No CVA tenderness Ext: Atraumatic. No LE edema. ROM intact Vasc: Extremities WWP. LUE AVF with palpable thrill Skin: Normal color, no rashes or lesions Neuro: A&Ox3, CN grossly intact, normal speech, motor/sensory grossly intact and symmetric Psych: Mood appropriate to situation ED Treatment Course - LABORATORY CBC & Chemistry Diagram: 07/11/19 20:05 07/11/19 20:05 - RADIOLOGY Radiology Studies Ordered: Category Date Time Status ABDOMEN & PELVIS CT W/O CONTR [CT] Stat CT Scan 07/11/19 19:30 Ordered CHEST X-RAY PORTABLE* [RAD] Stat Radiology 07/11/19 19:28 Ordered Medical Decision Making - Medical Decision Making 07/11/19 19:31 Sandra Hurt is a 64yo woman with a PMH of ESRD on HD (TThSa), liver failure s/p transplant, hepC (treated), DM2, HTN who presents with 3 days of generalized weakness, watery diarrhea, and AMS per her daughter. Her symptoms have been worsening, and she was unable to get out of bed for dialysis today. - Febrile, tachycardic to 102 and hypotensive (105 systolic, baseline around 120 ) - meets sepsis criteria - CBC, CMP, lactate, blood cultures, UA, UCx, coags, trop, EKG, CXR - Will hold off on IVF due to ascites and ESRD until labs completed - Abx to be determined based on possible source of infection; currently no clear symptoms other than infrequent diarrhea - CT abd/pelvis without contrast for evaluation 07/11/19 21:56 - Labs completed, reviewed. Notable for Cr 8.6, likely secondary to missed dialysis. No other significant abnormalities - Call placed to Dr Palacio for admission - Consult for Dr Loza for dialysis as Ms Hurt has seen him in the past - Vanc/zosyn for sepsis. No source yet, but pt at CT currently. Need to obtain UA - Pt discussed w/ Dr Vines for the remainder of her ED care. Discussed with Dr Alize Shepherd PGY2 *DC/Admit/Observation/Transfer Diagnosis at time of Disposition: Sepsis Qualifiers: Sepsis type: sepsis due to unspecified organism Sepsis acute organ dysfunction status: without acute organ dysfunction Qualified Code(s): A41.9 - Sepsis, unspecified organism - Discharge Dispostion Decision to Admit order: Yes - Referrals Referrals: Gerardo Palacio MD [Primary Care Provider] - - Patient Instructions - Post Discharge Activity
--- NOTE | 2019-07-11 19:44 | PDOC ---
Attending Attestation - Resident Resident Name: JaekerryCookie - ED Attending Attestation I have performed the following: I have examined & evaluated the patient, The case was reviewed & discussed with the resident, I agree w/resident's findings & plan - HPI HPI: 07/12/19 00:50 see resident hpi - Physicial Exam PE: 07/12/19 00:50 agree with resident exam - Medical Decision Making 07/12/19 00:50 64-year-old female status post liver transplant with fever weakness and abdominal pain CT scan read by both in-house radiology and imaging system consultant hepatic punctate air foci Patient admitted to medical service She has declined transfer to [place] where her client delivery manager/transplant care physician's are located Transplant was performed many years ago in [place] Plan for antibiotics, dialysis on admission She is currently in no acute distress, tempting to be [employer] while awaiting disposition Vancomycin and Zosyn given on arrival
[2019-07-11] MEDS ORDERED: ACETAMINOPHEN INJECTION 100 ML IVPB ONE (19:45)
[2019-07-11 20:21] LABS: BASO % 0.1 % (0-2.0); HEMATOCRIT 30.4 % (32.4-45.2); HEMOGLOBIN 10.2 GM/dL (10.7-15.3); LYMPH % 1.9 % (8-40); MCH 31.5 pg (25.7-33.7); MCHC 33.5 g/dl (32.0-36.0); MEAN CELL VOLUME 94.2 fl (80-96); MONO % 7.2 % (3.8-10.2); NEUT % 90.8 % (42.8-82.8); PLATELET COUNT 64 K/MM3 (134-434); RBC 3.23 M/mm3 (3.60-5.2)
[2019-07-11 20:22] LABS: VENOUS PH 7.47 (7.31-7.41); VENOUS PO2 73.3 mmHg (28-48)
[2019-07-11 20:35] LABS: INR 1.34 (0.83-1.09); PROTHROMBIN TIME (PATIENT) 15.8 SEC (9.7-13.0)
[2019-07-11 20:55] LABS: ALK PHOS 106 U/L (45-117); ANION GAP 21 MMOL/L (8-16); BILIRUBIN,TOTAL 0.8 mg/dL (0.2-1); BLOOD UREA NITROGEN 78.1 mg/dL (7-18); CALCIUM 7.7 mg/dL (8.5-10.1); CHLORIDE 94 mmol/L (98-107); CO2 18 mmol/L (21-32); GLUCOSE,RANDOM 140 mg/dL (74-106); POTASSIUM 5.1 mmol/L (3.5-5.1); SGOT/AST 56 U/L (15-37); SGPT/ALT 45 U/L (13-61); SODIUM 133 mmol/L (136-145); TOT PROT 6.8 g/dl (6.4-8.2)
[2019-07-11 20:58] LABS: CREATININE 8.6 mg/dL (0.55-1.3)
[2019-07-11] MEDS ORDERED: PIPERACILLIN/TAZOB 3.375 GM 3.375 GM in DEXTROSE 5%-WATER - 50 ML IVPB ONE (22:03)
[2019-07-11] MEDS ORDERED: VANCOMYCIN 1 GM in D5W (PRE-DOCKED) 1,000 MG/250 ML IVPB ONE (22:03)
[2019-07-11] MEDS ORDERED: PIPERACILLIN/TAZOB 3.375 GM 3.375 GM/50 ML BAG IVPB ONE (22:37)
[2019-07-11] MEDS ORDERED: VANCOMYCIN 1 GRAM (PRE-DOCKED) 1,000 MG/250 ML BAG IVPB ONE (22:37)
[2019-07-11 22:48] LABS: OVALOCYTE 1+; PLATELET ESTIMATE DECREASED
[2019-07-12] MEDS ORDERED: ACETAMINOPHEN 325 MG TABLET (FP) PO PRN (00:21)
[2019-07-12] MEDS ORDERED: SODIUM CHLORIDE 1,000 ML IV SCH (00:30)
[2019-07-12] MEDS ORDERED: GABAPENTIN 100 MG CAPSULE (FP) ONE (01:24)
[2019-07-12] MEDS: GABAPENTIN 300 MG CAPSULE (FP) PO SCH ×3 (01:40→21:38)
[2019-07-12 06:38] VITALS: BMI 28.0
[2019-07-12] MEDS: SEVELAMER CARBONATE 800 MG TAB (FP) PO SCH ×2 (08:01→17:13)
--- NOTE | 2019-07-12 09:02 | EKG ---
Test Reason : Blood Pressure : / mmHG Vent. Rate : 100 BPM Atrial Rate : 100 BPM P-R Int : 138 ms QRS Dur : 128 ms QT Int : 376 ms P-R-T Axes : 043 100 025 degrees QTc Int : 485 ms NORMAL SINUS RHYTHM POSSIBLE LEFT ATRIAL ENLARGEMENT RIGHT BUNDLE BRANCH BLOCK ABNORMAL ECG WHEN COMPARED WITH ECG OF 21-AUG-2017 09:35, NO SIGNIFICANT CHANGE WAS FOUND Confirmed by ABBE SUE MD ([id number]) on 07/12/2019 9:02:03 AM Referred By: Confirmed By:ABBE SUE MD
[2019-07-12] MEDS: FOLIC ACID 1 MG TABLET (FP) PO SCH (09:21)
[2019-07-12] MEDS ORDERED: PT OWN MED DRAWER 7, Y5N ONE ×5 (09:23→20:30)
[2019-07-12] MEDS: amLODIPine BESYLATE 10 MG TABLET (FP) PO SCH (09:27)
--- NOTE | 2019-07-12 09:45 | PN ---
Progress Note (short form) - Note Progress Note: ID consult dictated imp/reccd 64 yo female s/p liver transplant 2004, now monthly paracentesis , history of esrd/hd via avf left arm for 211/09 years nw treated hep c on Wednesday developed chills, fever and loose sstools- nonbloody 2-3 times a day- mainly after she eats, no vomiting was so weak yesterday she couldn't walk and family called EMS and brought her to the ambulance via ambulance- temp was 101.5 received vanco/zosyn in ED had one episode of loose stools after eating breakfast this am hungry now afebrile has abdominal discomfort no dysuria no sob no cough meds noted gram negative sepsis- bacteremia with lactic acidosis in immunocompromised host with liver transplant on tacrolimus-?secondary to SBP ct scan with punctate foci of air in the liver- should be seen by GI consider paracentesis- continue zosyn adjusted for esrd, gent one dose after HD today f/u blood cultures stool studies, ua and urine culture ordered liver cirrhosis thrombocytopenia esrd/hd d/w dr frances Problem List - Problems (1) Gram-neg septicemia Code(s): A41.50 - GRAM-NEGATIVE SEPSIS, UNSPECIFIED (2) Liver transplanted Code(s): Z94.4 - LIVER TRANSPLANT STATUS (3) ESRD (end stage renal disease) on dialysis Code(s): N18.6 - END STAGE RENAL DISEASE; Z99.2 - DEPENDENCE ON RENAL DIALYSIS (4) Liver cirrhosis Code(s): K74.60 - UNSPECIFIED CIRRHOSIS OF LIVER (5) Thrombocytopenia Code(s): D69.6 - THROMBOCYTOPENIA, UNSPECIFIED
[2019-07-12] MEDS ORDERED: PIPERACILLIN/TAZOBACTAM 2.25 GM VIAL IVPB ONE ×3 (09:46→23:58)
[2019-07-12] MEDS ORDERED: DEXTROSE 5%-WATER - 50 ML IVPB ONE ×3 (09:46→23:58)
[2019-07-12] MEDS: PIPERACILLIN/TAZOB 2.25 GM 2.25 GM in DEXTROSE 5%-WATER - 50 ML IVPB SCH ×2 (09:48→17:13)
[2019-07-12 11:29] LABS: BASO % 0.2 % (0-2.0); EOS % 0.5 % (0-4.5); HEMOGLOBIN 9.9 GM/dL (10.7-15.3); LYMPH % 4.5 % (8-40); MCH 31.8 pg (25.7-33.7); MEAN CELL VOLUME 93.7 fl (80-96); MEAN PLT VOLUME 10.5 fl (7.5-11.1); NEUT % 86.8 % (42.8-82.8); RDW 14.1 % (11.6-15.6); WHITE BLOOD COUNT 6.9 K/mm3 (4.0-10.0)
--- NOTE | 2019-07-12 11:29 | CONS ---
DATE OF CONSULTATION: DATE OF DICTATION: 07/12/2019 REQUESTING PHYSICIAN: Gerardo Palacio M.D. DICTATED BY: Yvonne An M.D. HISTORY OF PRESENT ILLNESS: This is a 64-year-old woman who is status post liver transplant in 2004. She is followed by transplant physician at [facility], as well as by Dr. Parra. She has at this point monthly paracentesis here at [facility]. She has end-stage renal disease and has been on dialysis for 2-1/2 years. In 2017, she was admitted for an enterococcal bacteremia felt secondary to her line infection. She has a history of hepatitis C that has been treated. On Wednesday, she developed some chills and fever, diarrhea. She said she had similar episodes in the past. She was having 2 to 3 non-bloody loose stools a day. She was well on Wednesday. On Wednesday, she felt weaker. Yesterday she was not able to get out of bed, she missed dialysis. The family called an ambulance because she was not able to walk to the car and she was brought to the emergency room. To me she said she had chills at home. She is not sure if she had fever. In the ER, she had a temperature of 101.5. She denies any cough. She denies any vomiting. She denies any dysuria. She urinates once or twice a day. She has been noticing that she is having loose stools after every meal. She is hungry. She notes that she has abdominal pain and abdominal discomfort that is new. There is no history of any travel. She has no sick contacts. She lives at home with her . There is no food change. She has not recently been on antibiotics and she recalls her last hospitalization she thinks was over a year ago. ALLERGIES: She has no known drug allergies. PAST MEDICAL HISTORY: Her past medical history is notable for a history of end-stage renal disease on dialysis, liver transplant, hepatitis C that has been treated. PAST SURGICAL HISTORY: Her surgical history is notable for a liver transplant in 2004. She has a left AV fistula. She has a history of hypertension. There is no history of diabetes. She is status post cholecystectomy. SOCIAL HISTORY: She is . She lives with . She is a former smoker. She quit many years ago. No history of alcohol or substance use. REVIEW OF SYSTEMS: Is as per HPI. Her appetite has improved. She is now able to ambulate to the bathroom. She is not as weak. She is having non-bloody loose stools every times she eats, otherwise no symptoms. She has abdominal discomfort. She gets monthly paracentesis and due her paracentesis now. PHYSICAL EXAMINATION: General: On physical exam she is awake and alert. Vitals: Temperature is 97.6, max was 101.5, pulse is 78, blood pressure 110/68, respiratory rate is 20. She is saturating 98% on room air. HEENT: She is normocephalic. Her eyes are anicteric. There is no thrush. She has good dentition. Lungs: Her lungs are clear to auscultation. Heart: Her heart is regular rate and rhythm. Abdomen: Her abdomen is soft. She has some lower abdominal discomfort to palpation. She had some moderate ascites. She has a well-healed incision mid abdomen extending in a Y pattern to both her right and left flank. Extremities: Her extremities are without edema. Her AV fistula is without edema. She has no asterixis. LABORATORY DATA: White count is 9000, hemoglobin 10.2, platelets are 64,000. Her INR is 1.3. Her BUN is 78 and creatinine 8.6, sodium of 133. Lactic acid on admission was 2.6. LFTs, AST of 56. She had an HIV test in January 2019 that was negative. She had hepatitis C in the computer documented from 2017 that is negative PCR. She has had multiple paracenteses. No cultures looks like have been sent. She now has gram-negative bacilli in 2 of 4 bottles, one aerobic and one anaerobic. Chest x-ray reveals a large heart, mild congestion, no infiltrate and CAT scan of her abdomen and pelvis shows several punctuate foci of air within the liver, possibly with a non-dilated biliary tract. There was no evidence of pneumatosis or portal mesenteric venous air. She has large amount of ascites, hepatic cirrhosis, splenomegaly, question of a 2 cm pancreatic cyst and a borderline fusiform aneurysmal dilatation of the infrarenal aorta. Extensive atherosclerotic vascular calcifications. There is no hydronephrosis, normal adrenals and hepatic cirrhosis and splenomegaly. SUMMARY: In summary, this is a 64-year-old woman with gram-negative sepsis, bacteremia with lactic acidosis in an immunocompromised host with liver transplant on immunosuppressive medications, including tacrolimus. Suspect this is secondary to SBP. The CAT scan is showing these punctate foci in the liver. She should be seen by her endocrinology physician in order to evaluate this. I would consider paracentesis. I would continue Zosyn adjusted for end-stage renal disease. I would follow up her blood cultures. I would send stool cultures, a UA and urine cultures for completeness. She has evidence of liver cirrhosis and has thrombocytopenia and she has end-stage renal disease on dialysis. All the above was discussed with Dr. Palacio who will reach out to GI. Further recommendations to follow. Lisette [id number]
[2019-07-12 11:39] LABS: PLATELET COUNT 45 K/MM3 (134-434)
[2019-07-12 12:00] LABS: ALBUMIN 2.8 g/dl (3.4-5.0); BILIRUBIN,TOTAL 0.7 mg/dL (0.2-1); CALCIUM 7.8 mg/dL (8.5-10.1); POTASSIUM 4.5 mmol/L (3.5-5.1); TOT PROT 6.7 g/dl (6.4-8.2)
[2019-07-12] MEDS ORDERED: PHYTONADIONE 10 MG/1 ML AMP IVPB ONE (12:04)
--- NOTE | 2019-07-12 12:10 | CON.GI ---
Consult Consult Specialty:: Gastroenterology Referred by:: Dr Palacio Reason for Consultation:: Sepsis, Cirrhosis, Liver transplant - History of Present Illness Chief Complaint: Profound weakness. Diarrhea History of Present Illness: 64F became profoundly weak yesterday prompting her family to have her BIBA yesterday. She has gram negative bacteremia. She does report having diarrhea which is only postprandial and pasty for the past few days. No bleeding. No severe abdominal pain. 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 She underwent a liver transplant at the [facility] in 2004 for HCV. She does not know how she acquired it ( no transfusions, IVDA, tattoos). She has been followed at the [facility] where she failed 4 therapies for HCV before it was finally eradicated by Irineo. Unfortunately she hasd already developed cirrhosis. She has ablation of esophageal varices by my associate Dr Parra at [facility] in 2018. She had a colonoscopy about 2 years ago but cannot recall with whom. She denies having had polyps removed. She denies any recenty foreign leisure travel agent antibiotic exposure but was treated for gr positive bacteremia in 2017. She has been on dialysis for 3 years since developing tacrolimus induced renal failure. Her mother of esophageal cancer. - History Source History Provided By: Patient Limitations to Obtaining History: No Limitations - Past Medical History Cardio/Vascular: Yes: HTN Gastrointestinal: Yes: Constipation, Esophageal Varices (ablated by [address] Parra in 2018 at [facility]), Other (normal colonoscopy as per her recollection 2 years ago ) Hepatobiliary: Yes: Hepatitis C, Other (Liver transplant 2004 at [facility] now with cirrhosis related to HCV which was finally cured by Irineo at [facility]. Has ascites requiring paracenteses. Denies hep. encephalopathy. Had esophageal varices ablated by Dr Parra) Renal/: Yes: Renal Failure (related to tacrolimus), Other (HD, Right Permacath , left AVF) - Past Surgical History Past Surgical History: Yes: Appendectomy, AV Fistula/Graft ([id number]), Colonoscopy, Liver Transplant, Upper Endoscopy - Alcohol/Substance Use Hx Alcohol Use: Yes (rarely. 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 Place of : [facility] History of Recent Travel: No Home Medications - Allergies Allergies/Adverse Reactions: Allergies Allergy/AdvReac Type Severity Reaction Status Date / Time No Known Allergies Allergy Verified 07/07/17 14:14 - Home Medications Home Medications: Ambulatory Orders Amlodipine Besylate [Norvasc -] 10 mg PO DAILY 07/06/17 Doxazosin Mesylate 4 mg PO HS 07/06/17 Furosemide [Lasix] 80 mg PO BID 07/06/17 Gabapentin 300 mg PO BID 07/06/17 Tacrolimus Anhydrous [Prograf] 0.5 mg PO BID 07/06/17 Sevelamer Carbonate [Renvela -] 800 mg PO BID 08/24/17 Folic Acid 0.84 mg PO DAILY 07/11/19 Folic Acid/Vit B Complex and C [Dialyvite 800 Chewable Wafer] 800 mcg PO BID 01/24 Family Disease History - Family Disease History Family Disease History: Diabetes: Father ( 76 diabetic complications), CA: Mother ( 66 esophageal cancer), Other: Sister (killed in MVA) Review of Systems - Review of Systems Constitutional: reports: Chills, Lethargy, Malaise, Weakness (all yesterday) Eyes: reports: No Symptoms HENT: reports: No Symptoms Neck: reports: No Symptoms Cardiovascular: reports: No Symptoms Respiratory: reports: No Symptoms Gastrointestinal: reports: Constipation, Diarrhea Genitourinary: reports: No Symptoms Physical Exam-GI Vital Signs: Vital Signs Temperature 97.9 F 07/12/19 10:55 Pulse Rate 80 07/12/19 12:00 Respiratory Rate 18 07/12/19 12:00 Blood Pressure 105/67 07/12/19 12:00 O2 Sat by Pulse Oximetry (%) 98 07/12/19 03:53 CBC,CMP WBC 6.9 K/mm3 (4.0-10.0) 07/12/19 11:00 RBC 3.10 M/mm3 (3.60-5.2) L 07/12/19 11:00 Hgb 9.9 GM/dL (10.7-15.3) L 07/12/19 11:00 Hct 29.0 % (32.4-45.2) L 07/12/19 11:00 MCV 93.7 fl (80-96) 07/12/19 11:00 MCH 31.8 pg (25.7-33.7) 07/12/19 11:00 MCHC 34.0 g/dl (32.0-36.0) 07/12/19 11:00 RDW 14.1 % (11.6-15.6) 07/12/19 11:00 Plt Count 45 K/MM3 (134-434) L D 07/12/19 11:00 MPV 10.5 fl (7.5-11.1) D 07/12/19 11:00 Absolute Neuts (auto) 6.0 K/mm3 (1.5-8.0) 07/12/19 11:00 Total Counted 100 07/11/19 20:05 Neutrophils % 86.8 % (42.8-82.8) H 07/12/19 11:00 Neutrophils % (Manual) 80.8 % (42.8-82.8) 07/11/19 20:05 Band Neutrophils % 6.1 % 07/11/19 20:05 Lymphocytes % 4.5 % (8-40) L D 07/12/19 11:00 Lymphocytes % (Manual) 3.0 % (8-40) L D 07/11/19 20:05 Monocytes % 8.0 % (3.8-10.2) 07/12/19 11:00 Monocytes % (Manual) 6 % (3.8-10.2) 07/11/19 20:05 Eosinophils % 0.5 % (0-4.5) D 07/12/19 11:00 Eosinophils % (Manual) 0.0 % (0-4.5) D 07/11/19 20:05 Basophils % 0.2 % (0-2.0) 07/12/19 11:00 Basophils % (Manual) 0.0 % (0-2.0) 07/11/19 20:05 Myelocytes % (Man) 1 % (0-2) D 07/11/19 20:05 Promyelocytes % (Man) 0 % (0-2) 07/11/19 20:05 Blast Cells % (Manual) 0 % (0-0) 07/11/19 20:05 Nucleated RBC % 0 % (0-0) 07/12/19 11:00 Metamyelocytes 3 % (0-2) H D 07/11/19 20:05 Platelet Estimate Decreased 07/11/19 20:05 Polychromasia 1+ 07/11/19 20:05 Poikilocytosis 1+ 07/11/19 20:05 Ovalocytes 1+ 07/11/19 20:05 Sodium 130 mmol/L (136-145) L 07/12/19 11:00 Potassium 4.5 mmol/L (3.5-5.1) 07/12/19 11:00 Chloride 95 mmol/L (98-107) L 07/12/19 11:00 Carbon Dioxide 21 mmol/L (21-32) 07/12/19 11:00 Anion Gap 14 MMOL/L (8-16) 07/12/19 11:00 BUN 85.0 mg/dL (7-18) H 07/12/19 11:00 Creatinine 9.0 mg/dL (0.55-1.3) H* 07/12/19 11:00 Est GFR (CKD-EPI)AfAm 4.77 07/12/19 11:00 Est GFR (CKD-EPI)NonAf 4.12 07/12/19 11:00 Random Glucose 152 mg/dL (74-106) H 07/12/19 11:00 Lactic Acid 3.3 mmol/L (0.4-2.0) H* 07/12/19 01:30 Calcium 7.8 mg/dL (8.5-10.1) L 07/12/19 11:00 Total Bilirubin 0.7 mg/dL (0.2-1) 07/12/19 11:00 AST 66 U/L (15-37) H 07/12/19 11:00 ALT 60 U/L (13-61) 07/12/19 11:00 Alkaline Phosphatase 105 U/L (45-117) 07/12/19 11:00 Troponin I < 0.02 ng/ml (0.00-0.05) 07/11/19 20:05 Total Protein 6.7 g/dl (6.4-8.2) 07/12/19 11:00 Albumin 2.8 g/dl (3.4-5.0) L 07/12/19 11:00 Current Medications Generic Name Dose Route Start Last Admin Trade Name Freq PRN Reason Stop Dose Admin Acetaminophen 650 mg 07/12/19 00:21 Tylenol - PO Q6H PRN FEVER Amlodipine Besylate 10 mg 07/12/19 10:00 07/12/19 09:27 Norvasc - PO Not Given DAILY ANALIA Doxazosin Mesylate 4 mg 07/12/19 22:00 Cardura - PO HS ANALIA Folic Acid 1 mg 07/12/19 10:00 07/12/19 09:21 Folic Acid - PO 1 mg DAILY ANALIA Administration Gabapentin 300 mg 07/12/19 00:30 07/12/19 09:21 Neurontin - PO 300 mg BID ANALIA Administration Sodium Chloride 1,000 mls @ 50 mls/hr 07/12/19 00:30 07/12/19 01:40 Normal Saline - IV 07/13/19 00:24 50 mls/hr ASDIR ANALIA Administration Sodium Chloride 250 mls @ 3,000 mls/hr 07/12/19 09:27 Normal Saline - IV 07/13/19 09:27 PRN PRN Hypotension during Dialysis Piperacillin Sod/Tazobactam 50 mls @ 100 mls/hr 07/12/19 10:00 07/12/19 09:48 Sod 2.25 gm/ Dextrose IVPB 100 mls/hr Q8H-IV ANALIA Administration Protocol Phytonadione 10 mg 07/12/19 12:04 Aqua Mephyton Injection - IVPB 07/12/19 12:05 ONCE ONE Sevelamer Carbonate 800 mg 07/12/19 08:00 07/12/19 08:01 Renvela - PO 800 mg BIDWM ANALIA Administration Tacrolimus 0.5 mg 07/12/19 10:00 Prograf PO BID ANALIA Constitutional: Yes: Calm, Other (on dialysis machine) Eyes: Yes: Conjunctiva Clear HENT: Yes: Atraumatic Neck: Yes: Supple Cardiovascular: Yes: Regular Rate and Rhythm Respiratory: Yes: CTA Bilaterally Gastrointestinal Inspection: Yes: Distention, Scars (bucket handle upper abdomional incision with incisional hernia, laparoscopic appendectomy incisions) ...Auscultate: Yes: Normoactive Bowel Sounds ...Palpate: Yes: Soft, Other (nontender) ...Rectal Exam: Yes: Deferred (on dialysis machine) Edema: No Neurological: Yes: Alert, Oriented Labs: CBC, BMP 07/12/19 11:00 07/12/19 11:00 INR, PTT INR 1.34 (0.83-1.09) H 07/11/19 20:05 Imaging - Results Cat Scan: Report Reviewed ( Final Report CT ABDOMEN & PELVIS CT W/O CONTR Show Printer-Friendly Version Patient Name: Sandra Herrera : 1955 ID: [id number] Study Date: 11-Jul-2019 21:41 [facility] Name: [facility] DEPARTMENT OF RADIOLOGY Phys : Cookie Shepherd RESIDENT : 1955 Age: 64 Sex: F [facility] Acct: [id number] Loc: [address] Exam Date : 07/11/19 Status: [place] [address] Unit Number: [id number] EXAM#: TYPE/EXAM: RESULT: [id number] CT/ABDOMEN PELVIS CT W/O CONTR Abdomen and pelvis CT without contrast Clinical information ascites, diarrhea, fever Multiplanar imaging was performed. No intravenous or enteric contrast was administered. Extensive atherosclerotic coronary artery calcifications are noted. No evidence of pneumoperitoneum or bowel obstruction. A large amount of ascites is noted similar to a previous CT study of 09/08/2018. The patient has had multiple interval paracentesis procedures. Ascitic fluid is also seen within a midline ventral epigastric hernia. Hepatic cirrhosis is noted with splenomegaly ( 18 cm length). Several punctate foci of air are noted within the liver possibly within the nondilated biliary tract. The gallbladder is not definitely visualized which may be due to contraction, aplasia or prior surgery. A 2 cm pancreatic neck cyst noted on the previous study (which was performed with intravenous contrast) is not well visualized on the current noncontrast exam. There is no hydronephrosis. There is probable mild bilateral renal cortical atrophy diffusely. There is borderline fusiform aneurysmal dilatation of the infrarenal aorta with a 3 cm diameter. Very extensive atherosclerotic aortoiliac mural calcifications are visualized. The adrenal glands demonstrate no obvious abnormality. As on the prior exam multiple mildly prominent retroperitoneal lymph nodes are seen without gross interval change. No gross CT evidence of acute appendicitis or diverticulitis allowing for limited visualization due to ascites, and unopacified bowel loops. There is no obvious CT evidence of acute colitis. Mild to moderate colitis may not be demonstrable on CT. There is also no gross CT evidence of small bowel enteritis. If clinically indicated correlate with follow-up CT utilizing oral contrast. The visualized osseous structures demonstrate no gross acute abnormality. Impression: Several punctate foci of air are noted within the liver possibly within a nondilated biliary tract. There is no evidence of pneumatosis or portomesenteric venous air. Correlate clinically and with close follow-up CT. The remainder of the exam demonstrates no obvious interval change in comparison to a prior CT exam of 09/08/2018. Large amount of ascites. Hepatic cirrhosis, splenomegaly. There is subtle visualization of a 2 cm pancreatic cyst better visualized on the previous exam which was performed with intravenous contrast. Periodic imaging surveillance is suggested. There is borderline fusiform aneurysmal dilatation of the infrarenal aorta with a 3 cm diameter. Very extensive atherosclerotic vascular calcifications are noted. Reported By: Ranjeet Fischer MD 07/11/192328 Technologist: Eulalio Manning Transcribed Date/Time : 07/11/192328 Cap Cutter: Ranjeet Fischer Printed Date/Time: By: Signed by: Ranjeet Fischer Signed on: 11-Jul-2019 23:30) Problem List - Problems (1) Gram-neg septicemia Assessment/Plan: Suspect SBP to be the source of this bacteremia and have ordered an urgent paracentesis by IR, Vitamin K ordered given her elevated protime Code(s): A41.50 - GRAM-NEGATIVE SEPSIS, UNSPECIFIED (2) Spontaneous bacterial peritonitis Code(s): K65.2 - SPONTANEOUS BACTERIAL PERITONITIS (3) Liver cirrhosis Code(s): K74.60 - UNSPECIFIED CIRRHOSIS OF LIVER (4) Hepatitis C virus infection cured after antiviral drug therapy Code(s): Z86.19 - PERSONAL HISTORY OF OTHER INFECTIOUS AND PARASITIC DISEASES (5) Ascites Code(s): R18.8 - OTHER ASCITES (6) History of appendectomy Code(s): Z90.49 - ACQUIRED ABSENCE OF OTHER SPECIFIED PARTS OF DIGESTIVE TRACT (7) H/O esophageal varices Code(s): Z87.19 - PERSONAL HISTORY OF OTHER DISEASES OF THE DIGESTIVE SYSTEM (8) Family history of esophageal cancer Code(s): Z80.0 - FAMILY HISTORY OF MALIGNANT NEOPLASM OF DIGESTIVE ORGANS (9) Thrombocytopenia Code(s): D69.6 - THROMBOCYTOPENIA, UNSPECIFIED (10) Bacteremia associated with intravascular line Code(s): T82.7XXA - INFECT/INFLM REACT D/T OTH CARDI/VASC DEV/IMPLNT/GRFT, INIT ; R78.81 - BACTEREMIA (11) ESRD (end stage renal disease) on dialysis Code(s): N18.6 - END STAGE RENAL DISEASE; Z99.2 - DEPENDENCE ON RENAL DIALYSIS (12) Hypertension Code(s): I10 - ESSENTIAL (PRIMARY) HYPERTENSION (13) Liver transplanted Code(s): Z94.4 - LIVER TRANSPLANT STATUS (14) Diarrhea Assessment/Plan: I suspect that Sandra has constipation with paradoxical diarrhea but will screen for infectious etiologies including C diff Code(s): R19.7 - DIARRHEA, UNSPECIFIED Assessment/Plan Assessment: - Suspect SBP to be the source of gm negative bacteremia and yesterday's weakness - HCV related cirrhosis of liver transplanted in 2004 manifesting ascites, thrombocytopenia, coagulopathy and rubber band ligated varices. She is at risk for hepatoma but no masses seen on CT. I believe that her intrahepatic air is a residual from her transplant and do not believe that she has cholangitis Plan: -- Paracentesis -- Vitamin K -- Antibiotics as already started by Dr An -- AFP Discussed case with Dr. Palacio and Dr An
--- NOTE | 2019-07-12 13:07 | CONSULT ---
Consult - text type - Consultation Consultation Note: Renal consult for ESRD on HD( This is a 64 year old woman with history of ESRD on HD (TTS) secondary to tacrolimus induced kidney injury, liver transplant, Hx of hepatitis C now treated who presented from home with fevers and found to have gram negative bactereima and suspected SBP. PMHx: as above Allergies: NKDA Family Hx: NC Social Hx: No T/A/D ROS: as per HPI Home Medications Medication Instructions Recorded Amlodipine Besylate [Norvasc -] 10 mg PO DAILY 07/06/17 Doxazosin Mesylate 4 mg PO HS 07/06/17 Furosemide [Lasix] 80 mg PO BID 07/06/17 Gabapentin 300 mg PO BID 07/06/17 Tacrolimus Anhydrous [Prograf] 0.5 mg PO BID 07/06/17 Sevelamer Carbonate [Renvela -] 800 mg PO BID 08/24/17 Folic Acid 0.84 mg PO DAILY 07/11/19 Folic Acid/Vit B Complex and C 800 mcg PO BID 07/11/19 [Dialyvite 800 Chewable Wafer] Vital Signs Temperature 97.9 F 07/12/19 10:55 Pulse Rate 80 07/12/19 12:30 Respiratory Rate 18 07/12/19 12:30 Blood Pressure 116/63 07/12/19 12:30 O2 Sat by Pulse Oximetry (%) 98 07/12/19 03:53 Intake & Output 07/09/19 07/10/19 07/11/19 07/12/19 23:59 23:59 23:59 23:59 Intake Total 400 Balance 400 Weight 70.307 kg 76.612 kg NAD awake and alert neck supple RRR soft NT/ND, + ascities no LE edema 07/12/19 11:00 07/12/19 11:00 Current Medications Acetaminophen (Tylenol -) 650 mg PO Q6H PRN PRN Reason: FEVER Amlodipine Besylate (Norvasc -) 10 mg PO DAILY [facility] Last Admin: 07/12/19 09:27 Dose: Not Given Doxazosin Mesylate (Cardura -) 4 mg PO HS [facility] Folic Acid (Folic Acid -) 1 mg PO DAILY [facility] Last Admin: 07/12/19 09:21 Dose: 1 mg Gabapentin (Neurontin -) 300 mg PO BID [facility] Last Admin: 07/12/19 09:21 Dose: 300 mg Sodium Chloride (Normal Saline -) 1,000 mls @ 50 mls/hr IV ASDIR [facility] Stop: 07/13/19 00:24 Last Admin: 07/12/19 01:40 Dose: 50 mls/hr Sodium Chloride (Normal Saline -) 250 mls @ 3,000 mls/hr IV PRN PRN PRN Reason: Hypotension during Dialysis Stop: 07/13/19 09:27 Piperacillin Sod/Tazobactam (Sod 2.25 gm/ Dextrose) 50 mls @ 100 mls/hr IVPB Q8H-IV ANALIA; Protocol Last Admin: 07/12/19 09:48 Dose: 100 mls/hr Phytonadione (Aqua Mephyton Injection -) 10 mg IVPB ONCE ONE Stop: 07/12/19 12:05 Sevelamer Carbonate (Renvela -) 800 mg PO BIDWM [facility] Last Admin: 07/12/19 08:01 Dose: 800 mg Tacrolimus (Prograf) 0.5 mg PO BID [facility] 64 year old woman with history of ESRD on HD (TTS) secondary to tacrolimus induced kidney injury, liver transplant, Hx of hepatitis C now treated who presented from home with fevers and found to have gram negative bactereima and suspected SBP. 1. Fever/Gram negative bacteremia r/o SBP 2. ESRD on HD 3. Liver transplant 4. Hyponatremia 5. Thrombocytopenia 6. Anemia Tolerated dialysis today with UF goal of 2 will reaccess for additional HD.UF tomorrow (pt is off her regular TTS schedule) Continue antibiotics as per ID (to get Gentamicin post HD today) Continue tacrolimus 0.5mg BID for her liver transplant for diagnostic/therapeutic paracentesis per GI will continue NANCY with HD for anemia Renal diet, 1.2 L fluid restriction
[2019-07-12 13:37] LABS: ERYTHROCYTE SEDIMENTATION RATE 59 mm/hr (0-30)
[2019-07-12] MEDS ORDERED: GENTAMICIN INJECTION 70 MG in SODIUM CHLORIDE 100 ML IVPB ONE (14:30)
[2019-07-12] MEDS: TACROLIMUS 0.5 MG CAPSULE PO SCH ×2 (15:01→21:38)
--- NOTE | 2019-07-12 16:11 | HP ---
Admitting History and Physical - Primary Care Physician PCP: Gerardo Palacio - Admission Chief Complaint: weakness History of Present Illness: Pt with Known liver transplant (2004) , Hx/p Hep C, liver cirrhosis, ascities, , ESRD on HD developed severe weakness the night before yesterday, couldn't go to HD yesterday; later decided to come to ER where was found to have fever, sepsis. History Source: Patient Limitations to Obtaining History: No Limitations - Past Medical History Cardiovascular: Yes: HTN Gastrointestinal: Yes: Constipation, Esophageal Varices (ablated by [address] Parra in 2018 at [facility]), Other (normal colonoscopy as per her recollection 2 years ago ) Hepatobiliary: Yes: Hepatitis C, Other (Liver transplant 2004 at [facility] now with cirrhosis related to HCV which was finally cured by Irineo at [facility]. Has ascites requiring paracenteses. Denies hep. encephalopathy. Had esophageal varices ablated by Dr Parra) Renal/: Yes: Renal Failure (related to tacrolimus), Other (HD, Right Permacath , left AVF) - Past Surgical History Past Surgical History: Yes: Appendectomy, AV Fistula/Graft (TRUDI 2016), Colonoscopy, Liver Transplant, Upper Endoscopy - Smoking History Smoking history: Former smoker Have you smoked in the past 12 months: No If you are a former smoker, when did you quit?: 2013 - Alcohol/Substance Use Hx Alcohol Use: Yes (rarely. 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 History of Recent Travel: No Home Medications - Allergies Allergies/Adverse Reactions: Allergies Allergy/AdvReac Type Severity Reaction Status Date / Time No Known Allergies Allergy Verified 07/07/17 14:14 - Home Medications Home Medications: Ambulatory Orders Amlodipine Besylate [Norvasc -] 10 mg PO DAILY 07/06/17 Doxazosin Mesylate 4 mg PO HS 07/06/17 Furosemide [Lasix] 80 mg PO BID 07/06/17 Gabapentin 300 mg PO BID 07/06/17 Tacrolimus Anhydrous [Prograf] 0.5 mg PO BID 07/06/17 Sevelamer Carbonate [Renvela -] 800 mg PO BID 08/24/17 Folic Acid 0.84 mg PO DAILY 07/11/19 Folic Acid/Vit B Complex and C [Dialyvite 800 Chewable Wafer] 800 mcg PO BID 01/24 Family Disease History - Family Disease History Family Disease History: Diabetes: Father ( 76 diabetic complications), CA: Mother ( 66 esophageal cancer), Other: Sister (killed in MVA) Review of Systems - Review of Systems Constitutional: reports: Fever, Loss of Appetite. denies: Chills Eyes: denies: Blurred Vision, Double Vision HENT: denies: Ear Discharge, Ear Pain, Nasal Congestion, Throat Pain Neck: reports: Stiffness. denies: Pain on Movement Cardiovascular: reports: Palpitations. denies: Chest Pain, Edema Respiratory: denies: Cough, SOB Gastrointestinal: reports: Abdominal Pain, Diarrhea (for cople of weeks). denies: Vomiting Genitourinary: denies: Burning, Discharge Musculoskeletal: denies: Back Pain, Joint Swelling Integumentary: reports: Bruising. denies: Rash Neurological: reports: Confusion (yesterday, resolved today). denies: Change in LOC, Change in Speech, Dizziness Endocrine: denies: Excessive Sweating, Intolerance to Cold Hematology/Lymphatic: denies: Easily Bruised, Excessive Bleeding Psychiatric: denies: Anxiety, Hallucinations Physical Examination Vital Signs: Vital Signs Temperature 97.9 F 07/12/19 10:55 Pulse Rate 80 07/12/19 14:35 Respiratory Rate 18 07/12/19 14:35 Blood Pressure 108/56 L 07/12/19 14:35 O2 Sat by Pulse Oximetry (%) 98 07/12/19 09:00 Constitutional: Yes: No Distress, Calm Eyes: Yes: Conjunctiva Clear, EOM Intact HENT: No: Epistaxis, Pharyngeal Erythema, Rhinnorhea Neck: Yes: Trachea Midline. No: Lymphadenopathy Cardiovascular: Yes: Regular Rate and Rhythm, Murmur, S1, S2 Respiratory: Yes: Regular, CTA Bilaterally. No: Rales Gastrointestinal: Yes: Normal Bowel Sounds, Soft, Ascites, Distention ...Rectal Exam: Yes: Deferred Renal/: No: CVA Tenderness - Left, CVA Tenderness - Right Breast(s): Yes: Other (deferred) Edema: No Integumentary: No: Bruising, Rash Neurological: Yes: Alert, Oriented, Other (and sensory examination is ssymmetric in UE/ LE/ face) Psychiatric: Yes: Alert, Oriented Labs: CBC, BMP 07/12/19 11:00 07/12/19 11:00 Imaging - Results Chest X-ray: Report Reviewed Cat Scan: Report Reviewed Problem List - Problems (1) Gram-neg septicemia Code(s): A41.50 - GRAM-NEGATIVE SEPSIS, UNSPECIFIED (2) Spontaneous bacterial peritonitis Code(s): K65.2 - SPONTANEOUS BACTERIAL PERITONITIS (3) Ascites Code(s): R18.8 - OTHER ASCITES (4) Liver cirrhosis Code(s): K74.60 - UNSPECIFIED CIRRHOSIS OF LIVER (5) Liver transplanted Code(s): Z94.4 - LIVER TRANSPLANT STATUS (6) ESRD (end stage renal disease) on dialysis Code(s): N18.6 - END STAGE RENAL DISEASE; Z99.2 - DEPENDENCE ON RENAL DIALYSIS (7) Hepatitis C virus infection cured after antiviral drug therapy Code(s): Z86.19 - PERSONAL HISTORY OF OTHER INFECTIOUS AND PARASITIC DISEASES (8) Hypertension Code(s): I10 - ESSENTIAL (PRIMARY) HYPERTENSION (9) Metabolic encephalopathy Assessment/Plan: resolving. Code(s): G93.41 - METABOLIC ENCEPHALOPATHY Assessment/Plan IV abtx HD ID consult, case was d/w Dr An GI consult, case was d/w Dr. Diana Renal consult, Dr. Loza at bedside. Paracentesis, diagnostic and therapeutic AM labs
[2019-07-12] MEDS: DOXAZOSIN MESYLATE 4 MG TABLET PO SCH (21:37)
[2019-07-13] MEDS: PIPERACILLIN/TAZOB 2.25 GM 2.25 GM in DEXTROSE 5%-WATER - 50 ML IVPB SCH ×2 (01:31→09:24)
[2019-07-13 07:34] LABS: ALBUMIN 2.6 g/dl (3.4-5.0); BILIRUBIN,TOTAL 0.6 mg/dL (0.2-1); BLOOD UREA NITROGEN 41.3 mg/dL (7-18); CALCIUM 7.6 mg/dL (8.5-10.1); CREATININE 5.1 mg/dL (0.55-1.3); POTASSIUM 3.6 mmol/L (3.5-5.1); TOT PROT 6.1 g/dl (6.4-8.2)
[2019-07-13 07:40] LABS: HEMATOCRIT 29.4 % (32.4-45.2); MEAN CELL VOLUME 94.2 fl (80-96); MEAN PLT VOLUME 10.4 fl (7.5-11.1); PLATELET COUNT 50 K/MM3 (134-434); RBC 3.13 M/mm3 (3.60-5.2); RDW 13.9 % (11.6-15.6); WHITE BLOOD COUNT 4.9 K/mm3 (4.0-10.0)
[2019-07-13] MEDS ORDERED: PT OWN MED DRAWER 7, Y5N ONE (09:01)
[2019-07-13] MEDS ORDERED: PIPERACILLIN/TAZOBACTAM 2.25 GM VIAL IVPB ONE (09:01)
[2019-07-13] MEDS ORDERED: DEXTROSE 5%-WATER - 50 ML IVPB ONE ×2 (09:01→17:08)
[2019-07-13] MEDS: SEVELAMER CARBONATE 800 MG TAB (FP) PO SCH ×2 (09:23→18:22)
[2019-07-13] MEDS: FOLIC ACID 1 MG TABLET (FP) PO SCH (09:23)
[2019-07-13] MEDS: amLODIPine BESYLATE 10 MG TABLET (FP) PO SCH (09:23)
[2019-07-13] MEDS: TACROLIMUS 0.5 MG CAPSULE PO SCH ×2 (09:23→22:48)
[2019-07-13] MEDS: GABAPENTIN 300 MG CAPSULE (FP) PO SCH ×2 (09:23→22:48)
--- NOTE | 2019-07-13 09:29 | PN ---
Progress Note, Physician Chief Complaint: feels better ambulates in hallway with her daughter no c/o except had some diarrhea no abd pain events noted - Current Medication List Current Medications: Active Medications Acetaminophen (Tylenol -) 650 mg PO Q6H PRN PRN Reason: FEVER Last Admin: 07/12/19 21:40 Dose: 650 mg Amlodipine Besylate (Norvasc -) 10 mg PO DAILY [facility] Last Admin: 07/13/19 09:23 Dose: 10 mg Doxazosin Mesylate (Cardura -) 4 mg PO HS [facility] Last Admin: 07/12/19 21:37 Dose: 4 mg Folic Acid (Folic Acid -) 1 mg PO DAILY [facility] Last Admin: 07/13/19 09:23 Dose: 1 mg Gabapentin (Neurontin -) 300 mg PO BID [facility] Last Admin: 07/13/19 09:23 Dose: 300 mg Sodium Chloride (Normal Saline -) 250 mls @ 3,000 mls/hr IV PRN PRN PRN Reason: Hypotension during Dialysis Stop: 07/13/19 09:27 Piperacillin Sod/Tazobactam (Sod 2.25 gm/ Dextrose) 50 mls @ 100 mls/hr IVPB Q8H-IV [facility]; Protocol Last Admin: 07/13/19 09:24 Dose: 100 mls/hr Sevelamer Carbonate (Renvela -) 800 mg PO BIDWM [facility] Last Admin: 07/13/19 09:23 Dose: 800 mg Tacrolimus (Prograf) 0.5 mg PO BID [facility] Last Admin: 07/13/19 09:23 Dose: 0.5 mg - Objective Vital Signs: Vital Signs Temperature 98.9 F 07/12/19 22:00 Pulse Rate 87 07/12/19 22:00 Respiratory Rate 20 07/12/19 22:00 Blood Pressure 106/61 07/12/19 22:00 O2 Sat by Pulse Oximetry (%) 98 07/12/19 21:00 Constitutional: Yes: No Distress, Calm Eyes: Yes: Conjunctiva Clear HENT: Yes: Atraumatic Neck: Yes: Supple Cardiovascular: Yes: Regular Rate and Rhythm Respiratory: Yes: CTA Bilaterally Gastrointestinal: Yes: Soft. No: Tenderness Genitourinary: No: Hematuria Musculoskeletal: No: Joint Stiffness, Joint Swelling Extremities: Yes: Other (L AVF). No: Cold, Cool Integumentary: No: Bruising, Rash Neurological: Yes: WNL, Alert, Oriented ...Motor Strength: WNL Psychiatric: Yes: WNL, Alert, Oriented. No: Agitated, Suicidal Ideation Labs: CBC, BMP 07/13/19 05:57 07/13/19 05:57 INR, PTT INR 1.34 (0.83-1.09) H 07/11/19 20:05 - ....Imaging Other: Report Reviewed Assessment/Plan 64 year old woman with history of ESRD on HD (TTS) secondary to tacrolimus induced kidney injury, liver transplant, Hx of hepatitis C now treated who presented from home with fevers and found to have gram negative bactereima and suspected SBP. 1. Fever/Gram negative bacteremia r/o SBP 2. ESRD on HD 3. Liver transplant, ascites, liver cirrhosis 4. Hyponatremia 5. Thrombocytopenia 6. Anemia dialysis per renal check stools for cDIFF Continue antibiotics as per ID Continue tacrolimus 0.5mg BID for her liver transplant for diagnostic/therapeutic paracentesis per GI Renal diet, 1.2 L fluid restriction ambulate but falls precautions d/w pt and daughter and staff
--- NOTE | 2019-07-13 12:16 | PN ---
Progress Note (short form) - Note Progress Note: Renal follow up for ESRD on HD Seen and examined at the bedside awake and alert continues to have abdominal distension and generalized fatigue denies any sob, chest pain, fever or chills s/p dialysis yesterday Vital Signs Temperature 98.9 F 07/12/19 22:00 Pulse Rate 87 07/12/19 22:00 Respiratory Rate 20 07/12/19 22:00 Blood Pressure 106/61 07/12/19 22:00 O2 Sat by Pulse Oximetry (%) 98 07/12/19 21:00 Intake & Output 07/10/19 07/11/19 07/12/19 07/13/19 23:59 23:59 23:59 23:59 Intake Total 1300 600 Output Total 2500 Balance -1200 600 Weight 70.307 kg 76.612 kg 76.43 kg NAD awake and alert neck supple RRR soft NT/ND, + ascities no LE edema CBC, BMP 07/13/19 05:57 07/13/19 05:57 Current Medications Acetaminophen (Tylenol -) 650 mg PO Q6H PRN PRN Reason: FEVER Last Admin: 07/12/19 21:40 Dose: 650 mg Amlodipine Besylate (Norvasc -) 10 mg PO DAILY [facility] Last Admin: 07/13/19 09:23 Dose: 10 mg Doxazosin Mesylate (Cardura -) 4 mg PO HS [facility] Last Admin: 07/12/19 21:37 Dose: 4 mg Folic Acid (Folic Acid -) 1 mg PO DAILY [facility] Last Admin: 07/13/19 09:23 Dose: 1 mg Gabapentin (Neurontin -) 300 mg PO BID [facility] Last Admin: 07/13/19 09:23 Dose: 300 mg Sodium Chloride (Normal Saline -) 250 mls @ 3,000 mls/hr IV PRN PRN PRN Reason: Hypotension during Dialysis Stop: 07/13/19 09:27 Piperacillin Sod/Tazobactam (Sod 2.25 gm/ Dextrose) 50 mls @ 100 mls/hr IVPB Q8H-IV [facility]; Protocol Last Admin: 07/13/19 09:24 Dose: 100 mls/hr Sevelamer Carbonate (Renvela -) 800 mg PO BIDWM [facility] Last Admin: 07/13/19 09:23 Dose: 800 mg Tacrolimus (Prograf) 0.5 mg PO BID [facility] Last Admin: 07/13/19 09:23 Dose: 0.5 mg 64 year old woman with history of ESRD on HD (TTS) secondary to tacrolimus induced kidney injury, liver transplant, Hx of hepatitis C now treated who presented from home with fevers and found to have gram negative bactereima and suspected SBP. 1. Fever/Gram negative bacteremia r/o SBP 2. ESRD on HD 3. Liver transplant 4. Hyponatremia 5. Thrombocytopenia 6. Anemia no acute need for dialysis today, next dialysis is planned for tomorrow (she is currently of her regular schedule) Continue antibiotics as per ID Continue tacrolimus 0.5mg BID for her liver transplant for diagnostic/therapeutic paracentesis per GI will continue NANCY with HD for anemia Renal diet, 1.2 L fluid restriction continue current antihypertensives, can consider titrating down amlodipine if BP remains low Inder Lazcano DO
[2019-07-13 12:57] LABS: EPI CELLS 9.2 /HPF (0-5/HPF); HYALINE CASTS 9 /lpf (0-8); PH,URINE 6.5 (5.0-8.0); URINE APPEARANCE CLOUDY; URINE BACTERIA 3.5 /hpf (NEGATIVE); URINE BILIRUBIN NEGATIVE (NEGATIVE); URINE COLOR YELLOW; URINE GLUCOSE (UA) TRACE (NEGATIVE); URINE KETONE NEGATIVE (NEGATIVE); URINE LEUK ESTERASE TRACE (NEGATIVE); URINE NITRITE NEGATIVE (NEGATIVE); URINE PROTEIN 3+ (NEGATIVE); URINE RBC 33 /hpf (0-4); URINE UROBILINOGEN 0.2 mg/dL (0.2-1.0); URINE WBC 7 /hpf (0-5)
--- NOTE | 2019-07-13 13:58 | PN ---
Progress Note (short form) - Note Progress Note: continues to have nonbloody diarrhea everytime she has a BM no fevers Vital Signs Period Temp Pulse Resp BP Sys/Reeves Pulse Ox Last 24 Hr 98.9 F-98.9 F 80-87 18-20 101-108/56-64 98 cor-rrr lungs decreased bs at bases abd firm, +ascites, +soft hernia ext no edema CBC, BMP 07/13/19 05:57 07/13/19 05:57 Microbiology 07/11/19 20:05 Blood - Peripheral Venous Blood Culture - Final Klebsiella Pneumoniae 07/11/19 20:05 Blood - Peripheral Venous Blood Culture - Preliminary Lactose Fermenting Neg Bacilli stool studies and cdiff are pending a/p klebsiella bacteremia with lactic acidosis in immunocompromised host with liver transplant on tacrolimus- suspect secondary to SBP for paracentesis today can switch to cefazolin 1 gram daily- give after dialysis on HD days stool studies, ua and urine culture pending repeat blood cultures in am s/p liver transplant liver cirrhosis thrombocytopenia-suspect multifactorial-infection and cirrhosis esrd/hd d/w patient and daughter at bedside Problem List - Problems (1) Gram-neg septicemia Code(s): A41.50 - GRAM-NEGATIVE SEPSIS, UNSPECIFIED (2) Liver transplanted Code(s): Z94.4 - LIVER TRANSPLANT STATUS (3) ESRD (end stage renal disease) on dialysis Code(s): N18.6 - END STAGE RENAL DISEASE; Z99.2 - DEPENDENCE ON RENAL DIALYSIS (4) Liver cirrhosis Code(s): K74.60 - UNSPECIFIED CIRRHOSIS OF LIVER (5) Thrombocytopenia Code(s): D69.6 - THROMBOCYTOPENIA, UNSPECIFIED
[2019-07-13] MEDS ORDERED: ceFAZolin SODIUM 1 GM VIAL ONE (17:08)
[2019-07-13] MEDS: CEFAZOLIN 1 GM in DEXTROSE 5%-WATER - 50 ML IVPB SCH (17:17)
[2019-07-13 17:46] LABS: BF WBC & OTHER NUCLEATED CELLS 127 /mm3
[2019-07-13 17:55] LABS: HEMOGLOBIN 10.6 GM/dL (10.7-15.3); MCH 31.4 pg (25.7-33.7); MCHC 33.1 g/dl (32.0-36.0); MEAN CELL VOLUME 94.9 fl (80-96); MEAN PLT VOLUME 10.9 fl (7.5-11.1); PLATELET COUNT 72 K/MM3 (134-434); RBC 3.37 M/mm3 (3.60-5.2); RDW 13.8 % (11.6-15.6); WHITE BLOOD COUNT 5.5 K/mm3 (4.0-10.0)
[2019-07-13 18:51] LABS: BODY FLUID MACROPHAGES 20 %; BODY FLUID MESOTHELIAL 41 %; BODY FLUID MONOCYTE 2 %
[2019-07-13] MEDS: DOXAZOSIN MESYLATE 4 MG TABLET PO SCH (22:48)
[2019-07-14] MEDS: SEVELAMER CARBONATE 800 MG TAB (FP) PO SCH ×2 (09:03→17:57)
--- NOTE | 2019-07-14 09:11 | PN ---
Progress Note (short form) - Note Progress Note: feels improved s/p paracentesis yesterday diarrhea when she eats, no diarrhea overnight because she didnot eat! Vital Signs Period Temp Pulse Resp BP Sys/Reeves Pulse Ox Last 24 Hr 97.6 F-99 F 77-90 18-20 123-135/63-81 96 cor-rrr lungs clear abd soft,nt ext no edema CBC, BMP 07/13/19 16:45 07/13/19 05:57 Microbiology 07/13/19 14:15 Peritoneal Fluid AFB Smear Concentration - Preliminary 07/13/19 14:15 Peritoneal Fluid Mycobacterial Culture - Preliminary 07/13/19 14:15 Peritoneal Fluid KRISTIN Preparation - Preliminary 07/13/19 14:15 Peritoneal Fluid Fungal Culture - Preliminary 07/13/19 11:45 Stool Clostridioides difficile Antigen - Final 07/13/19 11:45 Stool Clostridioides difficile Toxin Assay - Final 07/11/19 20:05 Blood - Peripheral Venous Blood Culture - Final Klebsiella Pneumoniae 07/11/19 20:05 Blood - Peripheral Venous Blood Culture - Preliminary Lactose Fermenting Neg Bacilli ascites fluid wbc 127 a/p klebsiella bacteremia in liver transplant recipient with liver cirrhosis esr/HD ascites flluid cell count not convincing for SBP will repeat ct scan with contrast- d/w renal and GI on cefazolin liver cirrhosis thrombocytopenia-multifactorial- improving esrd/hd d/w patient d/w GI d/w renal for HD today after ct scan Problem List - Problems (1) Gram-neg septicemia Code(s): A41.50 - GRAM-NEGATIVE SEPSIS, UNSPECIFIED (2) Liver transplanted Code(s): Z94.4 - LIVER TRANSPLANT STATUS (3) ESRD (end stage renal disease) on dialysis Code(s): N18.6 - END STAGE RENAL DISEASE; Z99.2 - DEPENDENCE ON RENAL DIALYSIS (4) Liver cirrhosis Code(s): K74.60 - UNSPECIFIED CIRRHOSIS OF LIVER (5) Thrombocytopenia Code(s): D69.6 - THROMBOCYTOPENIA, UNSPECIFIED
[2019-07-14] MEDS ORDERED: PT OWN MED DRAWER 7, Y5N ONE (09:44)
[2019-07-14] MEDS: amLODIPine BESYLATE 10 MG TABLET (FP) PO SCH (09:51)
[2019-07-14] MEDS: GABAPENTIN 300 MG CAPSULE (FP) PO SCH (09:51)
[2019-07-14] MEDS: FOLIC ACID 1 MG TABLET (FP) PO SCH (09:51)
[2019-07-14] MEDS: TACROLIMUS 0.5 MG CAPSULE PO SCH (09:51)
[2019-07-14] MEDS ORDERED: SODIUM CHLORIDE 250 ML IV PRN ×2 (10:57→10:58)
[2019-07-14] MEDS ORDERED: EPOETIN ALFA 10,000 UNIT/1 ML VIAL IVPUSH ONE (11:00)
--- NOTE | 2019-07-14 11:32 | PN ---
Progress Note, Physician History of Present Illness: pt seen earlier this am but I was unable to access / login [employer] until later in the evening; pt no new c/o feels well; no fever no pain; - Current Medication List Current Medications: Active Medications Acetaminophen (Tylenol -) 650 mg PO Q6H PRN PRN Reason: FEVER Last Admin: 07/12/19 21:40 Dose: 650 mg Amlodipine Besylate (Norvasc -) 10 mg PO DAILY [facility] Last Admin: 07/14/19 09:51 Dose: 10 mg Doxazosin Mesylate (Cardura -) 4 mg PO HS [facility] Last Admin: 07/13/19 22:48 Dose: 4 mg Folic Acid (Folic Acid -) 1 mg PO DAILY [facility] Last Admin: 07/14/19 09:51 Dose: 1 mg Gabapentin (Neurontin -) 300 mg PO BID [facility] Last Admin: 07/14/19 09:51 Dose: 300 mg Sodium Chloride (Normal Saline -) 250 mls @ 3,000 mls/hr IV PRN PRN PRN Reason: Hypotension during Dialysis Stop: 07/15/19 10:56 Sodium Chloride (Normal Saline -) 250 mls @ 3,000 mls/hr IV PRN PRN PRN Reason: Hypotension during Dialysis Stop: 07/15/19 10:57 Cefazolin Sodium 1 gm/ (Dextrose) 50 mls @ 100 mls/hr IVPB Q24H [facility] Last Admin: 07/13/19 17:17 Dose: 100 mls/hr Sevelamer Carbonate (Renvela -) 800 mg PO BIDWM [facility] Last Admin: 07/14/19 09:03 Dose: 800 mg Tacrolimus (Prograf) 0.5 mg PO BID [facility] Last Admin: 07/14/19 09:51 Dose: 0.5 mg - Objective Vital Signs: Vital Signs Temperature 98.3 F 07/14/19 07:05 Pulse Rate 78 07/14/19 07:05 Respiratory Rate 20 07/14/19 07:05 Blood Pressure 128/63 07/14/19 07:05 O2 Sat by Pulse Oximetry (%) 96 07/13/19 21:00 Constitutional: Yes: No Distress, Calm Eyes: Yes: Conjunctiva Clear HENT: Yes: Atraumatic Neck: Yes: Supple Cardiovascular: Yes: Regular Rate and Rhythm Respiratory: Yes: CTA Bilaterally Gastrointestinal: Yes: Soft. No: Tenderness Genitourinary: No: Hematuria Extremities: No: Cold, Cool Edema: No Integumentary: No: Rash, Venous Stasis Changes Neurological: Yes: WNL, Alert, Oriented ...Motor Strength: WNL Psychiatric: Yes: WNL, Alert, Oriented. No: Agitated, Suicidal Ideation Labs: CBC, BMP 07/13/19 16:45 07/13/19 05:57 INR, PTT INR 1.34 (0.83-1.09) H 07/11/19 20:05 - ....Imaging Other: Report Reviewed Assessment/Plan 64 year old woman with history of ESRD on HD (TTS) secondary to tacrolimus induced kidney injury, liver transplant, Hx of hepatitis C now treated who presented from home with fevers and found to have gram negative bactereima and suspected SBP. 1. Fever/Gram negative bacteremia r/o SBP on IV ATB / GI 2. ESRD on HD 3. Liver transplant, ascites, liver cirrhosis 4. Hyponatremia 5. Thrombocytopenia 6. Anemia dialysis per renal check stools for cDIFF Continue antibiotics as per ID Continue tacrolimus 0.5mg BID for her liver transplant s/p diagnostic/therapeutic paracentesis per GI Renal diet, 1.2 L fluid restriction ambulate / falls precautions repeat abdomen CT reviewed d/w ID dr An who d/w GI dr Diana; increased pneumobilia r/o cholangitis; given multiple comorbidities pt should be trabsferred to [facility] / liver transplant team; I spoke with Sumaya at [facility] craft coordinator and with GI fellow / who accepted pt to [facility] as a transfer; I spoke with pt herself and with pt's daughter and they agreed with [facility] transfer for further w/u and treatment; I did transfer form faxed to [facility]; also see DC summary; d/w pt and daughter and staff t time 75 min
[2019-07-14] MEDS ORDERED: LACTULOSE 20 GM/30 ML UDC (FOR ORAL USE ONLY) PO SCH (11:45)
[2019-07-14 13:28] VITALS: TEMP 98.1
[2019-07-14 14:17] LABS: HEMATOCRIT 29.3 % (32.4-45.2); HEMOGLOBIN 9.9 GM/dL (10.7-15.3); MCH 31.6 pg (25.7-33.7); MCHC 33.8 g/dl (32.0-36.0); MEAN CELL VOLUME 93.5 fl (80-96); MEAN PLT VOLUME 10.2 fl (7.5-11.1); PLATELET COUNT 66 K/MM3 (134-434); RBC 3.14 M/mm3 (3.60-5.2); RDW 13.6 % (11.6-15.6)
[2019-07-14 14:49] LABS: ALBUMIN 2.7 g/dl (3.4-5.0); BILIRUBIN,TOTAL 0.6 mg/dL (0.2-1); BLOOD UREA NITROGEN 52.6 mg/dL (7-18); CALCIUM 7.8 mg/dL (8.5-10.1); CREATININE 6.5 mg/dL (0.55-1.3); PHOSPHOROUS 3.6 mg/dL (2.5-4.9); POTASSIUM 3.6 mmol/L (3.5-5.1); TOT PROT 6.5 g/dl (6.4-8.2)
[2019-07-14] MEDS: CEFAZOLIN 1 GM in DEXTROSE 5%-WATER - 50 ML IVPB SCH (15:52)
--- NOTE | 2019-07-14 16:01 | PN ---
Progress Note (short form) - Note Progress Note: Renal follow up for ESRD on HD Seen and examined during dialysis BP stable, goal UF is 2.5 L, access pressures are WNL pt offers no acute complaints s/p CT of Abd/Pelvis with IV contrast piror to dialysis no fevers Vital Signs Temperature 98.1 F 07/14/19 13:25 Pulse Rate 75 07/14/19 13:30 Respiratory Rate 18 07/14/19 13:30 Blood Pressure 132/79 07/14/19 13:30 O2 Sat by Pulse Oximetry (%) 96 07/13/19 21:00 Intake & Output 07/11/19 07/12/19 07/13/19 07/14/19 23:59 23:59 23:59 23:59 Intake Total 1300 650 200 Output Total 2500 Balance -1200 650 200 Weight 70.307 kg 76.612 kg 76.43 kg 75.041 kg NAD awake and alert neck supple RRR soft NT/ND, + ascities no LE edema CBC, BMP 07/14/19 13:30 07/14/19 13:30 Current Medications Acetaminophen (Tylenol -) 650 mg PO Q6H PRN PRN Reason: FEVER Last Admin: 07/12/19 21:40 Dose: 650 mg Amlodipine Besylate (Norvasc -) 10 mg PO DAILY [facility] Last Admin: 07/14/19 09:51 Dose: 10 mg Doxazosin Mesylate (Cardura -) 4 mg PO HS [facility] Last Admin: 07/13/19 22:48 Dose: 4 mg Folic Acid (Folic Acid -) 1 mg PO DAILY [facility] Last Admin: 07/14/19 09:51 Dose: 1 mg Gabapentin (Neurontin -) 300 mg PO BID [facility] Last Admin: 07/14/19 09:51 Dose: 300 mg Sodium Chloride (Normal Saline -) 250 mls @ 3,000 mls/hr IV PRN PRN PRN Reason: Hypotension during Dialysis Stop: 07/15/19 10:56 Sodium Chloride (Normal Saline -) 250 mls @ 3,000 mls/hr IV PRN PRN PRN Reason: Hypotension during Dialysis Stop: 07/15/19 10:57 Piperacillin Sod/Tazobactam (Sod 2.25 gm/ Dextrose) 50 mls @ 100 mls/hr IVPB Q8H-IV [facility]; Protocol Lactulose (Cephulac (Oral Use)) 20 gm PO DAILY [facility] Sevelamer Carbonate (Renvela -) 800 mg PO BIDWM [facility] Last Admin: 07/14/19 09:03 Dose: 800 mg Tacrolimus (Prograf) 0.5 mg PO BID [facility] Last Admin: 07/14/19 09:51 Dose: 0.5 mg 64 year old woman with history of ESRD on HD (TTS) secondary to tacrolimus induced kidney injury, liver transplant, Hx of hepatitis C now treated who presented from home with fevers and found to have gram negative bactereima and suspected SBP. 1. Klebsella bacteremia 2. ESRD on HD 3. Liver transplant 4. Hyponatremia 5. Thrombocytopenia 6. Anemia tolerating dialysis well today awaiting results of CT of the Abd/Pelvis to determine source of infection paracentsis done, f/u fluid studies will plan on next dialysis being Wednesday. Renal diet Continue antibiotics as per MARIELA Lazcano DO
[2019-07-14 17:14] VITALS: BP 141/79; PULSE 81
[2019-07-14] MEDS ORDERED: PIPERACILLIN/TAZOBACTAM 2.25 GM VIAL IVPB ONE (17:52)
[2019-07-14] MEDS ORDERED: DEXTROSE 5%-WATER - 50 ML IVPB ONE (17:53)
[2019-07-14] MEDS ORDERED: PIPERACILLIN/TAZOB 2.25 GM 2.25 GM in DEXTROSE 5%-WATER - 50 ML IVPB SCH (18:00)
--- NOTE | 2019-07-14 18:00 | PN.GI ---
GI Progress Note Subjective: GI NOte: Peritoneal fluid analysis argues against SBP being the source of Klebsiella bacteremia. Sandra denies biliary colic or chills but CT reveals increasing pneumobilia and her alkaline phosphatase is rising. The other LFTs are decreasing. - Objective Vital Signs: Vital Signs Temperature 98.1 F 07/14/19 13:25 Pulse Rate 81 07/14/19 17:13 Respiratory Rate 18 07/14/19 17:13 Blood Pressure 141/79 07/14/19 17:13 O2 Sat by Pulse Oximetry (%) 97 07/14/19 09:00 Laboratory Tests 07/11/19 07/12/19 07/14/19 20:05 11:00 13:30 WBC 9.0 Total Bilirubin 0.7 0.6 AST 66 H 42 H ALT 60 44 Alkaline Phosphatase 105 147 H 07/14/19 13:30 WBC 4.0 Total Bilirubin AST ALT Alkaline Phosphatase Constitutional: No Distress ...Auscultate: Yes: Normoactive Bowel Sounds ...Palpate: Yes: Soft, Other (nontender) Labs: CBC, BMP 07/14/19 13:30 07/14/19 13:30 INR, PTT INR 1.34 (0.83-1.09) H 07/11/19 20:05 Assessment/Plan Assessment: - Given he increasing pneumobilia and exclusion of SBP to be the source of gm negative bacteremia I agree that cholangitis becomes the primary concern. I discussed the potential need for an ERCP with Sandra and her . - HCV related cirrhosis of liver transplanted in 2004 manifesting ascites, thrombocytopenia, coagulopathy and rubber band ligated varices. She is at risk for hepatoma but no masses seen on CT. I believe that her intrahepatic air is a residual from her transplant and do not believe that she has cholangitis Plan: -- MRCP -- Antibiotics as per Dr An -- Agree with transferring to the transplant team at [facility] given the potential need for ERCP. I am available to attempt it should she develop hypotension or other signs of overwhelming ascending cholangitis in the interim. Discussed case with Dr An Problem List - Problems (1) Pneumobilia Code(s): K83.8 - OTHER SPECIFIED DISEASES OF BILIARY TRACT (2) Gram-neg septicemia Code(s): A41.50 - GRAM-NEGATIVE SEPSIS, UNSPECIFIED (3) Spontaneous bacterial peritonitis Code(s): K65.2 - SPONTANEOUS BACTERIAL PERITONITIS (4) Liver cirrhosis Code(s): K74.60 - UNSPECIFIED CIRRHOSIS OF LIVER (5) Hepatitis C virus infection cured after antiviral drug therapy Code(s): Z86.19 - PERSONAL HISTORY OF OTHER INFECTIOUS AND PARASITIC DISEASES (6) Ascites Code(s): R18.8 - OTHER ASCITES (7) History of appendectomy Code(s): Z90.49 - ACQUIRED ABSENCE OF OTHER SPECIFIED PARTS OF DIGESTIVE TRACT (8) H/O esophageal varices Code(s): Z87.19 - PERSONAL HISTORY OF OTHER DISEASES OF THE DIGESTIVE SYSTEM (9) Family history of esophageal cancer Code(s): Z80.0 - FAMILY HISTORY OF MALIGNANT NEOPLASM OF DIGESTIVE ORGANS (10) Thrombocytopenia Code(s): D69.6 - THROMBOCYTOPENIA, UNSPECIFIED (11) Bacteremia associated with intravascular line Code(s): T82.7XXA - INFECT/INFLM REACT D/T OTH CARDI/VASC DEV/IMPLNT/GRFT, INIT ; R78.81 - BACTEREMIA (12) ESRD (end stage renal disease) on dialysis Code(s): N18.6 - END STAGE RENAL DISEASE; Z99.2 - DEPENDENCE ON RENAL DIALYSIS (13) Hypertension Code(s): I10 - ESSENTIAL (PRIMARY) HYPERTENSION (14) Liver transplanted Code(s): Z94.4 - LIVER TRANSPLANT STATUS (15) Diarrhea Code(s): R19.7 - DIARRHEA, UNSPECIFIED
--- NOTE | 2019-07-14 23:24 | DS ---
Physical Examination Vital Signs: Vital Signs Temperature 98.1 F 07/14/19 13:25 Pulse Rate 81 07/14/19 17:13 Respiratory Rate 18 07/14/19 17:13 Blood Pressure 141/79 07/14/19 17:13 O2 Sat by Pulse Oximetry (%) 97 07/14/19 09:00 Findings/Remarks: see progress note from today also; pt transferred to [facility] liver transplant team Labs: CBC, BMP 07/14/19 13:30 07/14/19 13:30 Discharge Summary Reason For Visit: SEPSIS Procedures: Principal: 64 YOF hep C s/p liver transplant, liver cirrhosis, ascites, ESRD / HD admitted with sepsis and positive blood cx Klebsiella presumed SBP. seen by GI, ID and renal; broad spectrum IV ATB given; HD / renal. Other Procedures: abdomen CT at admission c/w small pneumobilia but repeat CT c/ w increasing pneumobilia; paracentesis done. Hospital Course: clinically improved with ATB IV but suspected of cholangitis; transfer to [facility] for further w/u and treatment. Condition: Stable - Instructions Referrals: Petrona Palacio [Staff Physician] - Yvonne An MD [Staff Physician] - Zunilda Diana MD [Staff Physician] - Disposition: TRANSFER ACUTE CARE/OTHER HOSP - Home Medications Comprehensive Discharge Medication List: Ambulatory Orders Amlodipine Besylate [Norvasc -] 10 mg PO DAILY 07/06/17 Doxazosin Mesylate 4 mg PO HS 07/06/17 Furosemide [Lasix] 80 mg PO BID 07/06/17 Gabapentin 300 mg PO BID 07/06/17 Tacrolimus Anhydrous [Prograf] 0.5 mg PO BID 07/06/17 Sevelamer Carbonate [Renvela -] 800 mg PO BID 08/24/17 Folic Acid 0.84 mg PO DAILY 07/11/19 Folic Acid/Vit B Complex and C [Dialyvite 800 Chewable Wafer] 800 mcg PO BID 01/24
--- NOTE | 2019-07-18 16:24 | PATH ---
Cytology Non-Gynecological Report Patient Name: STEPHEN MCKEON Med. Rec. #: [id number] /Age/Gender: 1955 (Age: 64) / F Account: [id number] Location: [facility] MED/SURG Taken: 07/13/2019 Received: 07/17/2019 Reported: 07/18/2019 Physicians: Gerardo Palacio M.D. Specimen(s) Received ABDOMINAL FLUID Clinical History Ascites Final Diagnosis ABDOMINAL FLUID, PARACENTESIS: SATISFACTORY FOR EVALUATION. NO MALIGNANT CELLS IDENTIFIED. MACROPHAGES AND RARE MESOTHELIAL CELLS PRESENT. Comment: Recommend correlation with clinical findings and follow up as clinically indicated. Electronically Signed Jimena Baptiste M.D. Gross Description Approximately 50 cc of yellow fluid received fixed in 50% alcohol. One cytofunnel prepared and Pap stained. One cellblock prepared.
== END 2019-07-14 20:47 | disposition short-term general hospital (02) | DRG 871 ==
LOC: JER 16:37 → JERBED 22:16 → J8W 07-12 02:58
PROVIDERS: ADMIT Specialist; ATTEND Specialist
PROC: 5A1D70Z Performance of Urinary Filtration, Intermittent, Less than 6 Hours Per Day (ICD-10-PCS; 2019-07-12)
PROC: 0W9G3ZX Drainage of Peritoneal Cavity, Percutaneous Approach, Diagnostic (ICD-10-PCS; principal; 2019-07-13)
PROC: 5A1D70Z Performance of Urinary Filtration, Intermittent, Less than 6 Hours Per Day (ICD-10-PCS; 2019-07-14)
DX: A41.59 Other Gram-negative sepsis (principal); N18.6 End stage renal disease; G93.41 Metabolic encephalopathy; K65.2 Spontaneous bacterial peritonitis; I12.0 Hypertensive chronic kidney disease with stage 5 chronic kidney disease or end stage renal disease; R18.8 Other ascites; E87.1 Hypo-osmolality and hyponatremia; E87.2 Acidosis; Z94.4 Liver transplant status; Z99.2 Dependence on renal dialysis; K74.60 Unspecified cirrhosis of liver; D69.6 Thrombocytopenia, unspecified; R00.0 Tachycardia, unspecified; I95.9 Hypotension, unspecified; R50.9 Fever, unspecified; K83.8 Other specified diseases of biliary tract; D64.9 Anemia, unspecified; R19.7 Diarrhea, unspecified; K59.00 Constipation, unspecified; Z86.19 Personal history of other infectious and parasitic diseases; Z87.19 Personal history of other diseases of the digestive system; Z80.0 Family history of malignant neoplasm of digestive organs; Z90.49 Acquired absence of other specified parts of digestive tract
CPT/HCPCS: 36415; 36430; 71045-TC-FY; 74176-TC; 74177-TC; 74181-TC; 76942-TC; 80053; 81003; 82150; 82465; 82803; 82945; 83605; 83615; 83986; 84100; 84157; 84478; 84484; 85025; 85027; 85610; 85651; 85730; 86803; 86850; 86900; 86901; 87040; 87045; 87046; 87070; 87075; 87086; 87102; 87116; 87186; 87205; 87206; 87210; 87324; 87340; 87449; 88108; 88305-TC; 93005; 93010; 99283-25; J0131; J0885; J7030; P9034

== ENCOUNTER → 2019-08-16 | Day surgery (SDC) | payer OTHER, MEDICARE ==
[2019-08-16 10:00] LABS: HEMATOCRIT 33.4 % (32.4-45.2); MCH 31.8 pg (25.7-33.7); MEAN CELL VOLUME 96.4 fl (80-96); MEAN PLT VOLUME 8.9 fl (7.5-11.1); PLATELET COUNT 116 K/MM3 (134-434); RBC 3.46 M/mm3 (3.60-5.2); RDW 15.1 % (11.6-15.6)
[2019-08-16 10:13] LABS: INR 1.17 (0.83-1.09); PROTHROMBIN TIME (PATIENT) 13.8 SEC (9.7-13.0)
== END | disposition home or self-care (01) ==
LOC: JRADIR 09:30
PROVIDERS: ATTEND Internal Medicine Gastroenterology
PROC: 0W9G3ZZ Drainage of Peritoneal Cavity, Percutaneous Approach (ICD-10-PCS; principal; 2019-08-16)
DX: R18.8 Other ascites (principal)
CPT/HCPCS: 36415; 76942-TC; 85027; 85610; 87070; 87075; 87102; 87116; 87205; 87206; 87210

== ENCOUNTER → 2019-09-25 | Day surgery (SDC) | payer OTHER, MEDICARE | END | disposition home or self-care (01) | LOC: JRADIR 10:54 | PROVIDERS: ATTEND Internal Medicine Gastroenterology | PROC: 0W9G3ZX Drainage of Peritoneal Cavity, Percutaneous Approach, Diagnostic (ICD-10-PCS; principal; 2019-09-25) | DX: R18.8 Other ascites (principal); N19 Unspecified kidney failure | CPT/HCPCS: 76942-TC ==

== ENCOUNTER → 2019-11-13 | Day surgery (SDC) | payer OTHER, MEDICARE | END | disposition home or self-care (01) | LOC: JRADIR 11:53 | PROVIDERS: ATTEND Internal Medicine Gastroenterology | PROC: 0W9G3ZZ Drainage of Peritoneal Cavity, Percutaneous Approach (ICD-10-PCS; principal; 2019-11-13) | PROC: BW40ZZZ Ultrasonography of Abdomen (ICD-10-PCS; 2019-11-13) | DX: R18.8 Other ascites (principal) | CPT/HCPCS: 49083; 76942-TC ==

== ENCOUNTER → 2019-12-18 | Day surgery (SDC) | payer OTHER, MEDICARE | END | disposition home or self-care (01) | LOC: JRADIR 10:12 | PROVIDERS: ATTEND Internal Medicine Gastroenterology | PROC: 0W9G3ZZ Drainage of Peritoneal Cavity, Percutaneous Approach (ICD-10-PCS; principal; 2019-12-18) | PROC: BW40ZZZ Ultrasonography of Abdomen (ICD-10-PCS; 2019-12-18) | DX: R18.8 Other ascites (principal) | CPT/HCPCS: 76942-TC ==

== ENCOUNTER → 2020-04-26 | Day surgery (SDC) | payer OTHER, MEDICARE ==
[2020-04-26 11:08] LABS: BASO % 0.7 % (0-2.0); EOS % 0.7 % (0-4.5); HEMATOCRIT 31.5 % (32.4-45.2); HEMOGLOBIN 10.6 GM/dL (10.7-15.3); LYMPH % 10.2 % (8-40); MCH 30.8 pg (25.7-33.7); MCHC 33.6 g/dl (32.0-36.0); MEAN CELL VOLUME 91.8 fl (80-96); MEAN PLT VOLUME 9.4 fl (7.5-11.1); MONO % 8.1 % (3.8-10.2); NEUT % 80.3 % (42.8-82.8); PLATELET COUNT 168 K/MM3 (134-434); RBC 3.43 M/mm3 (3.60-5.2); RDW 14.3 % (11.6-15.6); WHITE BLOOD COUNT 4.3 K/mm3 (4.0-10.0)
[2020-04-26 11:15] LABS: INR 1.13 (0.83-1.09); PROTHROMBIN TIME (PATIENT) 13.3 SEC (9.7-13.0)
== END | disposition home or self-care (01) ==
LOC: JRADIR 09:42
PROVIDERS: ATTEND Internal Medicine Gastroenterology
PROC: 0W9G3ZZ Drainage of Peritoneal Cavity, Percutaneous Approach (ICD-10-PCS; principal; 2020-04-26)
DX: R18.8 Other ascites (principal); N19 Unspecified kidney failure; K72.90 Hepatic failure, unspecified without coma
CPT/HCPCS: 36415; 76942-TC; 85025; 85610

== ENCOUNTER → 2020-05-15 | Day surgery (SDC) | payer OTHER, MEDICARE | END | disposition home or self-care (01) | LOC: JRADIR 10:35 | PROVIDERS: ATTEND Internal Medicine Gastroenterology | PROC: 0W9G3ZZ Drainage of Peritoneal Cavity, Percutaneous Approach (ICD-10-PCS; principal; 2020-05-15) | PROC: BW40ZZZ Ultrasonography of Abdomen (ICD-10-PCS; 2020-05-15) | DX: R18.8 Other ascites (principal); N19 Unspecified kidney failure | CPT/HCPCS: 76942-TC ==

== ENCOUNTER → 2020-06-21 | Day surgery (SDC) | payer OTHER, MEDICARE | END | disposition home or self-care (01) | LOC: JRADIR 10:29 | PROVIDERS: ATTEND Internal Medicine Gastroenterology | PROC: 0W9G3ZX Drainage of Peritoneal Cavity, Percutaneous Approach, Diagnostic (ICD-10-PCS; principal; 2020-06-21) | PROC: BW40ZZZ Ultrasonography of Abdomen (ICD-10-PCS; 2020-06-21) | DX: R18.8 Other ascites (principal); N19 Unspecified kidney failure | CPT/HCPCS: 76942-TC ==

== ENCOUNTER → 2020-08-23 | Day surgery (SDC) | payer OTHER, MEDICARE ==
--- OUTSIDE RECORDS SUMMARY | 2020-08-23 10:08 | XMS ---
:1955 Author Organization [facility] Support Name Relationship Address Phone RE, RETIRED Unavailable Unavailable Unavailable ROSALINE MAK DAUGHTER [address] [place] [address] RE Unavailable Unavailable Unavailable AUBREE WAGGONER DAUGHTER [address] [facility] [address] [place] [address] Re-disclosure Warning The records that you are about to access may contain information from federally- assisted alcohol or drug abuse programs. If such information is present, then the following federally mandated warning applies: This information has been disclosed to you from records protected by federal confidentiality rules (42 CFR part 2). The federal rules prohibit you from making any further disclosure of this information unless further disclosure is expressly permitted by the written consent of the person to whom it pertains or as otherwise permitted by 42 CFR part 2. A general authorization for the release of medical or other information is NOT sufficient for this purpose. The Federal rules restrict any use of the information to criminally investigate or prosecute any alcohol or drug abuse patient.The records that you are about to access may contain highly sensitive health information, the redisclosure of which is protected by Article 27-F of the [facility] Public Health law. If you continue you may haveaccess to information: Regarding HIV / AIDS; Provided by facilities licensed or operated by the [facility] Office of Mental Health; or Provided by the [facility] Office for People With Developmental Disabilities. If such information is present, then the following [facility] mandated warning applies: This information has been disclosed to you from confidential records which are protected by state law. State law prohibits you from making any further disclosure of this information without the specific written consent of the person to whom it pertains, or as otherwise permitted by law. Any unauthorized further disclosure in violation of state law may result in a fine or fdc sentence or both. A general authorization for the release of medical or other information is NOT sufficient authorization for further disclosure. Insurance Providers Payer name Policy type Policy ID Covered Covered constitution party's Policy P enrike / Coverage constitution party ID relationship to Amador Inf ormation type amador [facility] [id number] [employer] MEDICARE [id number] SP [id number] [facility] [id number] [facility] [id number] [employer] [facility] [id number] [phone] DIALYSIS CENTER MEDICARE [id number] [facility] [id number] [employer] Results ID Date Data Source [id number] 04/24/2020 05:15:00 PM EDT [facility] Name Value Range Interpretation Code Description Data Ángela rce(s) Supporting Document(s ) SARS-COV-2 [facility] QL JESSIE+PROBE This lab was ordered by SIVA JACOBS and reported by [facility]. Procedure
[2020-08-23 10:34] LABS: EOS % 1.4 % (0-4.5); HEMATOCRIT 34.9 % (32.4-45.2); HEMOGLOBIN 11.5 GM/dL (10.7-15.3); LYMPH % 19.8 % (8-40); MCH 31.1 pg (25.7-33.7); MEAN CELL VOLUME 94.1 fl (80-96); MEAN PLT VOLUME 9.5 fl (7.5-11.1); MONO % 9.5 % (3.8-10.2); NEUT % 68.3 % (42.8-82.8); PLATELET COUNT 87 K/MM3 (134-434); RBC 3.71 M/mm3 (3.60-5.2); RDW 15.1 % (11.6-15.6); WHITE BLOOD COUNT 3.3 K/mm3 (4.0-10.0)
[2020-08-23 10:42] LABS: INR 1.16 (0.83-1.09); PROTHROMBIN TIME (PATIENT) 14.2 SEC (9.7-13.0)
== END | disposition home or self-care (01) ==
LOC: JRADIR 10:04
PROVIDERS: ATTEND Internal Medicine Gastroenterology
PROC: 0W9G3ZZ Drainage of Peritoneal Cavity, Percutaneous Approach (ICD-10-PCS; principal; 2020-08-23)
PROC: BW40ZZZ Ultrasonography of Abdomen (ICD-10-PCS; 2020-08-23)
DX: R18.8 Other ascites (principal); N19 Unspecified kidney failure; K72.90 Hepatic failure, unspecified without coma
CPT/HCPCS: 36415; 76942-TC; 85025; 85610

== ENCOUNTER → 2020-10-11 | Day surgery (SDC) | payer OTHER, MEDICARE | END | disposition home or self-care (01) | LOC: JRADIR 09:44 | PROVIDERS: ATTEND Internal Medicine Gastroenterology | PROC: 0W9G3ZZ Drainage of Peritoneal Cavity, Percutaneous Approach (ICD-10-PCS; principal; 2020-10-11) | PROC: BW40ZZZ Ultrasonography of Abdomen (ICD-10-PCS; 2020-10-11) | DX: R18.8 Other ascites (principal); N19 Unspecified kidney failure; K72.90 Hepatic failure, unspecified without coma | CPT/HCPCS: 76942-TC ==

== ENCOUNTER → 2020-12-06 | Day surgery (SDC) | payer OTHER, MEDICARE | END | disposition home or self-care (01) | LOC: JRADIR 09:01 | PROVIDERS: ATTEND Internal Medicine Gastroenterology | PROC: 0W9G3ZZ Drainage of Peritoneal Cavity, Percutaneous Approach (ICD-10-PCS; principal; 2020-12-06) | PROC: BW40ZZZ Ultrasonography of Abdomen (ICD-10-PCS; 2020-12-06) | DX: R18.8 Other ascites (principal); N19 Unspecified kidney failure; K72.90 Hepatic failure, unspecified without coma | CPT/HCPCS: 76942-TC ==

== ENCOUNTER → 2021-02-03 | Day surgery (SDC) | payer OTHER, MEDICARE | END | disposition home or self-care (01) | LOC: JRADIR 09:51 | PROVIDERS: ATTEND Internal Medicine Gastroenterology | PROC: 0W9G3ZZ Drainage of Peritoneal Cavity, Percutaneous Approach (ICD-10-PCS; principal; 2021-02-03) | PROC: BW40ZZZ Ultrasonography of Abdomen (ICD-10-PCS; 2021-02-03) | DX: R18.8 Other ascites (principal) | CPT/HCPCS: 49083; 76942-TC ==

== ENCOUNTER → 2021-03-24 | Day surgery (SDC) | payer OTHER, MEDICARE | END | disposition home or self-care (01) | LOC: JRADIR 12:12 | PROVIDERS: ATTEND Internal Medicine Gastroenterology | PROC: 0W9G3ZZ Drainage of Peritoneal Cavity, Percutaneous Approach (ICD-10-PCS; principal; 2021-03-24) | PROC: BW40ZZZ Ultrasonography of Abdomen (ICD-10-PCS; 2021-03-24) | DX: R18.8 Other ascites (principal) | CPT/HCPCS: 49083; 76942-TC ==

== ENCOUNTER → 2021-05-20 | Day surgery (SDC) | payer OTHER, MEDICARE | END | disposition home or self-care (01) | LOC: JRADIR 11:05 | PROVIDERS: ATTEND Internal Medicine Gastroenterology | PROC: 0W9G3ZX Drainage of Peritoneal Cavity, Percutaneous Approach, Diagnostic (ICD-10-PCS; principal; 2021-05-20) | DX: R18.8 Other ascites (principal) | CPT/HCPCS: 49083; 76942-TC ==

== ENCOUNTER → 2021-08-05 | Day surgery (SDC) | payer OTHER, MEDICARE | END | disposition home or self-care (01) | LOC: JRADIR 13:50 | PROVIDERS: ATTEND Internal Medicine Gastroenterology | PROC: 0W9G3ZZ Drainage of Peritoneal Cavity, Percutaneous Approach (ICD-10-PCS; principal; 2021-08-05) | PROC: BW40ZZZ Ultrasonography of Abdomen (ICD-10-PCS; 2021-08-05) | DX: R18.8 Other ascites (principal); N19 Unspecified kidney failure | CPT/HCPCS: 49083; 76942-TC ==

== ENCOUNTER → 2021-09-23 | Day surgery (SDC) | payer OTHER, MEDICARE | END | disposition home or self-care (01) | LOC: JRADIR 12:13 | PROVIDERS: ATTEND Internal Medicine Gastroenterology | PROC: 0W9G3ZZ Drainage of Peritoneal Cavity, Percutaneous Approach (ICD-10-PCS; principal; 2021-09-23) | PROC: BW40ZZZ Ultrasonography of Abdomen (ICD-10-PCS; 2021-09-23) | DX: R18.8 Other ascites (principal) | CPT/HCPCS: 49083; 76942-TC ==

== ENCOUNTER → 2021-11-04 | Day surgery (SDC) | payer OTHER, MEDICARE | END | disposition home or self-care (01) | LOC: JRADIR 11:25 | PROVIDERS: ATTEND Internal Medicine Gastroenterology | PROC: 0W9G3ZZ Drainage of Peritoneal Cavity, Percutaneous Approach (ICD-10-PCS; principal; 2021-11-04) | PROC: BW40ZZZ Ultrasonography of Abdomen (ICD-10-PCS; 2021-11-04) | DX: R18.8 Other ascites (principal) | CPT/HCPCS: 49083; 76942-TC ==

== ENCOUNTER → 2021-12-04 | Day surgery (SDC) | payer OTHER, MEDICARE | END | disposition home or self-care (01) | LOC: EDSEX 10:09 → JRADIR 10:09 | PROVIDERS: ATTEND Internal Medicine Gastroenterology | PROC: 0W9G3ZZ Drainage of Peritoneal Cavity, Percutaneous Approach (ICD-10-PCS; principal; 2021-12-04) | DX: R18.8 Other ascites (principal); K72.90 Hepatic failure, unspecified without coma; N19 Unspecified kidney failure | CPT/HCPCS: 49083; 76942-TC ==

== ENCOUNTER → 2022-01-15 | Day surgery (SDC) | payer OTHER, MEDICARE | END | disposition home or self-care (01) | LOC: JRADIR 11:41 | PROVIDERS: ATTEND Internal Medicine Gastroenterology | PROC: 0W9G3ZZ Drainage of Peritoneal Cavity, Percutaneous Approach (ICD-10-PCS; principal; 2022-01-15) | PROC: BW40ZZZ Ultrasonography of Abdomen (ICD-10-PCS; 2022-01-15) | DX: R18.8 Other ascites (principal) | CPT/HCPCS: 49083; 76942-TC ==

== ENCOUNTER → 2022-02-19 | Day surgery (SDC) | payer OTHER, MEDICARE ==
[2022-02-19 11:00] LABS: BASO % 0.8 % (0-2.0); EOS % 2.6 % (0-4.5); HEMOGLOBIN 11.1 GM/dL (10.7-15.3); INR 1.15 (0.83-1.09); LYMPH % 12.2 % (8-40); MCH 32.6 pg (25.7-33.7); MCHC 33.5 g/dl (32.0-36.0); MEAN CELL VOLUME 97.5 fl (80-96); MEAN PLT VOLUME 8.7 fl (7.5-11.1); MONO % 11.1 % (3.8-10.2); NEUT % 73.3 % (42.8-82.8); PLATELET COUNT 119 10^3/uL (134-434); PROTHROMBIN TIME (PATIENT) 13.2 SEC (9.7-13.0); RBC 3.39 M/mm3 (3.60-5.2); RDW 16.6 % (11.6-15.6); WHITE BLOOD COUNT 4.1 K/mm3 (4.0-10.0)
[2022-02-19 11:21] LABS: BLOOD UREA NITROGEN 33.1 mg/dL (7-18); CALCIUM 9.4 mg/dL (8.5-10.1)
[2022-02-19 11:24] LABS: BILIRUBIN,DIRECT 0.2 mg/dL (0.0-0.2)
[2022-02-19 11:25] LABS: BILIRUBIN,TOTAL 0.5 mg/dL (0.2-1)
[2022-02-19 11:26] LABS: TOT PROT 7.3 g/dl (6.4-8.2)
== END | disposition home or self-care (01) ==
LOC: JRADIR 10:02
PROVIDERS: ATTEND Internal Medicine Gastroenterology
PROC: 0W9G3ZX Drainage of Peritoneal Cavity, Percutaneous Approach, Diagnostic (ICD-10-PCS; principal; 2022-02-19)
DX: R18.8 Other ascites (principal)
CPT/HCPCS: 36415; 49083; 76942-TC; 80048; 80076; 85025; 85610

== ENCOUNTER → 2022-03-17 | Day surgery (SDC) | payer OTHER, MEDICARE | END | disposition home or self-care (01) | LOC: JRADIR 11:57 | PROVIDERS: ATTEND Internal Medicine Gastroenterology | PROC: 0W9G3ZZ Drainage of Peritoneal Cavity, Percutaneous Approach (ICD-10-PCS; principal; 2022-03-17) | DX: R18.8 Other ascites (principal) | CPT/HCPCS: 49083; 76942-TC ==

== ENCOUNTER → 2022-04-16 | Day surgery (SDC) | payer OTHER, MEDICARE | END | disposition home or self-care (01) | LOC: JRADIR 10:46 | PROVIDERS: ATTEND Internal Medicine Gastroenterology | PROC: 0W9G3ZZ Drainage of Peritoneal Cavity, Percutaneous Approach (ICD-10-PCS; principal; 2022-04-16) | DX: R18.8 Other ascites (principal) | CPT/HCPCS: 49083; 76942-TC ==

== ENCOUNTER → 2022-05-21 | Day surgery (SDC) | payer OTHER, MEDICARE | END | disposition home or self-care (01) | LOC: JRADIR 12:10 | PROVIDERS: ATTEND Internal Medicine Gastroenterology | PROC: 0W9G3ZZ Drainage of Peritoneal Cavity, Percutaneous Approach (ICD-10-PCS; principal; 2022-05-21) | PROC: BW40ZZZ Ultrasonography of Abdomen (ICD-10-PCS; 2022-05-21) | DX: R18.8 Other ascites (principal) | CPT/HCPCS: 49083; 76942-TC ==

== ENCOUNTER → 2022-06-25 | Day surgery (SDC) | payer OTHER, MEDICARE | END | disposition home or self-care (01) | LOC: JRADIR 09:28 | PROVIDERS: ATTEND Internal Medicine Gastroenterology | PROC: 0W9G3ZZ Drainage of Peritoneal Cavity, Percutaneous Approach (ICD-10-PCS; principal; 2022-06-25) | PROC: BW40ZZZ Ultrasonography of Abdomen (ICD-10-PCS; 2022-06-25) | DX: R18.8 Other ascites (principal) | CPT/HCPCS: 49083; 76942-TC ==

== ENCOUNTER → 2022-08-06 | Day surgery (SDC) | payer OTHER, MEDICARE | END | disposition home or self-care (01) | LOC: JRADIR 10:34 | PROVIDERS: ATTEND Internal Medicine Gastroenterology | PROC: 0W9G3ZX Drainage of Peritoneal Cavity, Percutaneous Approach, Diagnostic (ICD-10-PCS; principal; 2022-08-06) | DX: R18.8 Other ascites (principal) | CPT/HCPCS: 49083; 76942-TC ==

== ENCOUNTER → 2022-09-03 | Day surgery (SDC) | payer OTHER, MEDICARE | END | disposition home or self-care (01) | LOC: JRADIR 10:10 | PROVIDERS: ATTEND Internal Medicine Gastroenterology | PROC: 0W9G3ZZ Drainage of Peritoneal Cavity, Percutaneous Approach (ICD-10-PCS; principal; 2022-09-03) | DX: R18.8 Other ascites (principal) | CPT/HCPCS: 49083; 76942-TC ==

== ENCOUNTER → 2022-10-08 | Day surgery (SDC) | payer OTHER, MEDICARE | END | disposition home or self-care (01) | LOC: JRADIR 11:20 | PROVIDERS: ATTEND Internal Medicine Gastroenterology | PROC: 0W9G3ZZ Drainage of Peritoneal Cavity, Percutaneous Approach (ICD-10-PCS; principal; 2022-10-08) | DX: R18.8 Other ascites (principal) | CPT/HCPCS: 49083; 76942-TC ==

== ENCOUNTER → 2022-11-05 | Day surgery (SDC) | payer OTHER, MEDICARE | END | disposition home or self-care (01) | LOC: JRADIR 09:21 | PROVIDERS: ATTEND Internal Medicine Gastroenterology | PROC: 0W9G3ZZ Drainage of Peritoneal Cavity, Percutaneous Approach (ICD-10-PCS; principal; 2022-11-05) | DX: R18.8 Other ascites (principal) | CPT/HCPCS: 49083; 76942-TC ==

== ENCOUNTER → 2022-12-15 | Day surgery (SDC) | payer OTHER, MEDICARE | END | disposition home or self-care (01) | LOC: JRADIR 08:57 | PROVIDERS: ATTEND Internal Medicine Gastroenterology | PROC: 0W9G3ZZ Drainage of Peritoneal Cavity, Percutaneous Approach (ICD-10-PCS; principal; 2022-12-15) | DX: R18.8 Other ascites (principal) | CPT/HCPCS: 49083; 76942-TC ==

== ENCOUNTER 2022-12-17 04:29 | Day surgery (SDC) | payer OTHER, MEDICARE ==
[2022-12-16 10:07] VITALS: BMI 26.6
[2022-12-17 10:12] VITALS: BP 166/78; PULSE 82; RESP 18; TEMP 96.9
== END 2022-12-17 10:05 | disposition home or self-care (01) ==
LOC: JASU-ENDO 04:29
PROVIDERS: ATTEND Internal Medicine Gastroenterology
PROC: 06L38CZ Occlusion of Esophageal Vein with Extraluminal Device, Via Natural or Artificial Opening Endoscopic (ICD-10-PCS; principal; 2022-12-17 08:30)
DX: I85.00 Esophageal varices without bleeding (principal)
CPT/HCPCS: 36415; 84132

== ENCOUNTER → 2023-01-21 | Day surgery (SDC) | payer OTHER, MEDICARE ==
[2023-01-21 11:49] LABS: BASO % 1.1 % (0-2.0); EOS % 2.5 % (0-4.5); HEMATOCRIT 30.4 % (32.4-45.2); HEMOGLOBIN 10.1 GM/dL (10.7-15.3); LYMPH % 16.2 % (8-40); MCH 31.6 pg (25.7-33.7); MCHC 33.3 g/dl (32.0-36.0); MEAN PLT VOLUME 8.7 fl (7.5-11.1); MONO % 10.2 % (3.8-10.2); PLATELET COUNT 116 10^3/uL (134-434); RDW 15.2 % (11.6-15.6); WHITE BLOOD COUNT 3.7 K/mm3 (4.0-10.0)
[2023-01-21 11:57] LABS: INR 1.19 (0.83-1.09); PROTHROMBIN TIME (PATIENT) 13.8 SEC (9.7-13.0)
[2023-01-21 12:44] LABS: ALBUMIN 3.3 g/dl (3.4-5.0); BLOOD UREA NITROGEN 23.8 mg/dL (7-18)
[2023-01-21 12:47] LABS: BILIRUBIN,DIRECT 0.2 mg/dL (0.0-0.2)
== END | disposition home or self-care (01) ==
LOC: JRADIR 09:08
PROVIDERS: ATTEND Internal Medicine Gastroenterology
PROC: 0W9G3ZZ Drainage of Peritoneal Cavity, Percutaneous Approach (ICD-10-PCS; principal; 2023-01-21)
DX: R18.8 Other ascites (principal)
CPT/HCPCS: 36415; 49083; 76942-TC; 80197; 82040; 82248; 82374; 82565; 82947; 82977; 83735; 84075; 84132; 84295; 84450; 84460; 84520; 85025; 85610

== ENCOUNTER → 2023-02-23 | Day surgery (SDC) | payer OTHER, MEDICARE | END | disposition home or self-care (01) | LOC: JRADIR 10:22 | PROVIDERS: ATTEND Internal Medicine Gastroenterology | PROC: 0W9G3ZZ Drainage of Peritoneal Cavity, Percutaneous Approach (ICD-10-PCS; principal; 2023-02-23) | DX: R18.8 Other ascites (principal) | CPT/HCPCS: 49083; 76942-TC ==

== ENCOUNTER → 2023-03-25 | Day surgery (SDC) | payer OTHER, MEDICARE | END | disposition home or self-care (01) | LOC: JRADIR 09:00 | PROVIDERS: ATTEND Internal Medicine Gastroenterology | PROC: 0W9G3ZZ Drainage of Peritoneal Cavity, Percutaneous Approach (ICD-10-PCS; principal; 2023-03-25) | DX: R18.8 Other ascites (principal) | CPT/HCPCS: 49083; 76942-TC ==

== ENCOUNTER 2023-04-01 04:27 | Day surgery (SDC) | payer OTHER, MEDICARE ==
[2023-03-31 10:54] VITALS: BMI 25.9
[2023-04-01 12:48] VITALS: BP 133/60; PULSE 75; RESP 19; TEMP 98
== END 2023-04-01 12:49 | disposition home or self-care (01) ==
LOC: JASU-ENDO 04:27
PROVIDERS: ATTEND Internal Medicine Gastroenterology
PROC: 0DB98ZX Excision of Duodenum, Via Natural or Artificial Opening Endoscopic, Diagnostic (ICD-10-PCS; principal; 2023-04-01 11:30)
DX: K29.80 Duodenitis without bleeding (principal); K29.70 Gastritis, unspecified, without bleeding; Z87.19 Personal history of other diseases of the digestive system
CPT/HCPCS: 88305-TC

== ENCOUNTER → 2023-04-27 | Day surgery (SDC) | payer OTHER, MEDICARE | END | disposition home or self-care (01) | LOC: JRADIR 11:30 | PROVIDERS: ATTEND Internal Medicine Gastroenterology | PROC: 0W9G3ZZ Drainage of Peritoneal Cavity, Percutaneous Approach (ICD-10-PCS; principal; 2023-04-27) | DX: R18.8 Other ascites (principal) | CPT/HCPCS: 49083; 76942-TC ==

== ENCOUNTER → 2023-06-03 | Day surgery (SDC) | payer OTHER, MEDICARE | END | disposition home or self-care (01) | LOC: JRADIR 11:29 | PROVIDERS: ATTEND Internal Medicine Gastroenterology | PROC: 0W9G3ZZ Drainage of Peritoneal Cavity, Percutaneous Approach (ICD-10-PCS; principal; 2023-06-03) | DX: R18.8 Other ascites (principal) | CPT/HCPCS: 49083; 76942-TC ==

== ENCOUNTER → 2023-07-13 | Day surgery (SDC) | payer OTHER, MEDICARE | END | disposition home or self-care (01) | LOC: JRADIR 10:57 | PROVIDERS: ATTEND Internal Medicine Gastroenterology | PROC: 0W9G3ZZ Drainage of Peritoneal Cavity, Percutaneous Approach (ICD-10-PCS; principal; 2023-07-13) | DX: R18.8 Other ascites (principal) | CPT/HCPCS: 49083; 76942-TC ==

== ENCOUNTER → 2023-09-14 | Day surgery (SDC) | payer OTHER, MEDICARE ==
[2023-09-14 11:28] LABS: BASO % 1.1 % (0-2.0); EOS % 2.2 % (0-4.5); HEMATOCRIT 28.1 % (32.4-45.2); HEMOGLOBIN 9.1 GM/dL (10.7-15.3); LYMPH % 16.8 % (8-40); MCH 30.9 pg (25.7-33.7); MCHC 32.2 g/dl (32.0-36.0); MEAN CELL VOLUME 95.9 fl (80-96); MEAN PLT VOLUME 8.7 fl (7.5-11.1); MONO % 10.5 % (3.8-10.2); NEUT % 69.4 % (42.8-82.8); PLATELET COUNT 96 10^3/uL (134-434); RBC 2.93 M/mm3 (3.60-5.2); RDW 16.2 % (11.6-15.6); WHITE BLOOD COUNT 3.6 K/mm3 (4.0-10.0)
[2023-09-14 12:20] LABS: INR 1.17 (0.83-1.09); PROTHROMBIN TIME (PATIENT) 13.5 SEC (9.7-13.0)
== END | disposition home or self-care (01) ==
LOC: JRADIR 10:18
PROVIDERS: ATTEND Internal Medicine Gastroenterology
PROC: 0DBK8ZX Excision of Ascending Colon, Via Natural or Artificial Opening Endoscopic, Diagnostic (ICD-10-PCS; principal; 2023-09-14)
PROC: 0DBL8ZX Excision of Transverse Colon, Via Natural or Artificial Opening Endoscopic, Diagnostic (ICD-10-PCS; 2023-09-14)
DX: Z12.11 Encounter for screening for malignant neoplasm of colon (principal); D12.2 Benign neoplasm of ascending colon; D12.3 Benign neoplasm of transverse colon; K64.8 Other hemorrhoids; K63.89 Other specified diseases of intestine
CPT/HCPCS: 36415; 45385; 76942-TC; 85025; 85610

== ENCOUNTER 2023-09-16 10:50 | Day surgery (SDC) | payer OTHER, MEDICARE ==
[2023-09-14 13:29] VITALS: BMI 26.6
[2023-09-16 13:44] VITALS: TEMP 98.6
[2023-09-16 14:02] VITALS: BP 143/63; PULSE 84; RESP 16
== END 2023-09-16 14:15 | disposition home or self-care (01) ==
LOC: JASU-ENDO 10:50
PROVIDERS: ATTEND Internal Medicine Gastroenterology
PROC: 0DBL8ZX Excision of Transverse Colon, Via Natural or Artificial Opening Endoscopic, Diagnostic (ICD-10-PCS; 2023-09-16)
PROC: 0DBK8ZX Excision of Ascending Colon, Via Natural or Artificial Opening Endoscopic, Diagnostic (ICD-10-PCS; principal; 2023-09-16 12:00)
DX: Z12.11 Encounter for screening for malignant neoplasm of colon (principal); D12.2 Benign neoplasm of ascending colon; D12.3 Benign neoplasm of transverse colon; K64.8 Other hemorrhoids
CPT/HCPCS: 88305-TC

== ENCOUNTER → 2023-11-09 | Day surgery (SDC) | payer OTHER, MEDICARE | END | disposition home or self-care (01) | LOC: JRADIR 08:31 | PROVIDERS: ATTEND Internal Medicine Gastroenterology | PROC: 0W9G3ZZ Drainage of Peritoneal Cavity, Percutaneous Approach (ICD-10-PCS; principal; 2023-11-09) | DX: R18.8 Other ascites (principal) | CPT/HCPCS: 49083; 76942-TC ==

== ENCOUNTER → 2023-12-16 | Day surgery (SDC) | payer OTHER, MEDICARE ==
[2023-12-16 11:11] LABS: INR 1.24 (0.83-1.09); PROTHROMBIN TIME (PATIENT) 14.3 SEC (9.7-13.0)
[2023-12-16 11:22] LABS: EOS % 2.4 % (0-4.5); HEMATOCRIT 29.5 % (32.4-45.2); HEMOGLOBIN 9.9 GM/dL (10.7-15.3); LYMPH % 13.3 % (8-40); MCH 31.3 pg (25.7-33.7); MCHC 33.6 g/dl (32.0-36.0); MEAN CELL VOLUME 93.2 fl (80-96); MEAN PLT VOLUME 8.5 fl (7.5-11.1); MONO % 9.2 % (3.8-10.2); NEUT % 74.1 % (42.8-82.8); PLATELET COUNT 101 10^3/uL (134-434); RBC 3.17 M/mm3 (3.60-5.2); RDW 17.1 % (11.6-15.6); WHITE BLOOD COUNT 3.3 K/mm3 (4.0-10.0)
[2023-12-16 11:36] LABS: POTASSIUM 3.4 mmol/L (3.5-5.1)
[2023-12-16 11:38] LABS: ALBUMIN 3.3 g/dl (3.4-5.0); BLOOD UREA NITROGEN 21.2 mg/dL (7-18); CALCIUM 9.3 mg/dL (8.5-10.1)
[2023-12-16 11:41] LABS: BILIRUBIN,DIRECT 0.2 mg/dL (0.0-0.2); CREATININE 4.6 mg/dL (0.55-1.3)
[2023-12-16 11:43] LABS: BILIRUBIN,TOTAL 0.7 mg/dL (0.2-1); TOT PROT 7.4 g/dl (6.4-8.2)
== END | disposition home or self-care (01) ==
LOC: JRADIR 07:01
PROVIDERS: ATTEND Internal Medicine Gastroenterology
PROC: 0W9G3ZZ Drainage of Peritoneal Cavity, Percutaneous Approach (ICD-10-PCS; principal; 2023-12-16)
DX: R18.8 Other ascites (principal)
CPT/HCPCS: 36415; 49083; 76942-TC; 80053; 80076; 80197; 85025; 85610

== ENCOUNTER → 2024-01-27 | Day surgery (SDC) | payer OTHER, MEDICARE | END | disposition home or self-care (01) | LOC: JRADIR 12:17 | PROVIDERS: ATTEND Internal Medicine Gastroenterology | PROC: 0W9G3ZZ Drainage of Peritoneal Cavity, Percutaneous Approach (ICD-10-PCS; principal; 2024-01-27) | DX: K74.60 Unspecified cirrhosis of liver (principal) | CPT/HCPCS: 49083; 76942-TC ==

== ENCOUNTER → 2024-03-14 | Day surgery (SDC) | payer OTHER, MEDICARE | END | disposition home or self-care (01) | LOC: JRADIR 12:04 | PROVIDERS: ATTEND Internal Medicine Gastroenterology | PROC: 0W9G3ZZ Drainage of Peritoneal Cavity, Percutaneous Approach (ICD-10-PCS; principal; 2024-03-14) | DX: R18.8 Other ascites (principal) | CPT/HCPCS: 49083; 76942-TC ==

== ENCOUNTER 2024-04-08 23:48 | Emergency (ER) | payer OTHER, MEDICARE ==
[2024-04-08 23:51] VITALS: BMI 22.6
[2024-04-09] MEDS ORDERED: morphine SULFATE 4 MG/ML VIAL ONE (00:45)
[2024-04-09] MEDS ORDERED: ONDANSETRON 4 MG/2 ML VIAL ONE (01:17)
[2024-04-09] MEDS: morphine CARPU-JECT 4 MG/1 ML DISP.SYRIN IVPUSH ONE (01:26)
[2024-04-09] MEDS: ONDANSETRON 4 MG/2 ML VIAL IVPUSH ONE (01:27)
[2024-04-09 01:32] LABS: EOS % 1.5 % (0-4.5); HEMATOCRIT 35.1 % (32.4-45.2); HEMOGLOBIN 11.6 GM/dL (10.7-15.3); LYMPH % 8.4 % (8-40); MCH 30.3 pg (25.7-33.7); MEAN CELL VOLUME 91.9 fl (80-96); MEAN PLT VOLUME 9.4 fl (7.5-11.1); MONO % 8.5 % (3.8-10.2); NEUT % 80.6 % (42.8-82.8); PLATELET COUNT 138 10^3/uL (134-434); RBC 3.81 M/mm3 (3.60-5.2); RDW 18.4 % (11.6-15.6); WHITE BLOOD COUNT 5.9 K/mm3 (4.0-10.0)
[2024-04-09 01:46] LABS: INR 1.16 (0.83-1.09)
[2024-04-09 01:49] LABS: ACTIVATED PTT 35.2 SECONDS (25.2-36.5)
[2024-04-09 01:53] LABS: ALBUMIN 3.3 g/dl (3.4-5.0); CALCIUM 9.5 mg/dL (8.5-10.1)
[2024-04-09 01:54] LABS: MAGNESIUM 2.1 mg/dL (1.8-2.4)
[2024-04-09 01:57] LABS: CREATININE 5.5 mg/dL (0.55-1.3)
[2024-04-09 01:59] LABS: BILIRUBIN,TOTAL 0.7 mg/dL (0.2-1); TOT PROT 7.7 g/dl (6.4-8.2)
[2024-04-09] MEDS ORDERED: RAPID SEQUENCE INTUBATION KIT NR ONE (03:57)
[2024-04-09] MEDS ORDERED: NALOXONE HCL 0.4 MG/ML VIAL ONE (04:01)
[2024-04-09] MEDS ORDERED: ROCURONIUM BROMIDE 50 MG/5 ML SYRINGE ONE (04:04)
[2024-04-09] MEDS ORDERED: ETOMIDATE 20 MG/10 ML VIAL IVPUSH ONE (04:05)
[2024-04-09] MEDS ORDERED: NOREPINEPHRINE BITARTRATE 4 MG/4 ML ML IV ONE (04:11)
[2024-04-09] MEDS: ROCURONIUM BROMIDE 50 MG/5 ML VIAL IV ONE (04:33)
[2024-04-09] MEDS: NOREPINEPHRINE BITARTRATE 4,000 MCG in DEXTROSE 5%-WATER - 496 ML IV SCH (04:45)
[2024-04-09 04:52] LABS: VENOUS BASE EXCESS -13.6 mmol/L (-2-2); VENOUS O2 SATURATION 57.6 % (70-80); VENOUS PCO2 49.3 mmHg (38-52)
[2024-04-09 04:53] LABS: BASO % 1.2 % (0-2.0); EOS % 0.2 % (0-4.5); HEMOGLOBIN 7.3 GM/dL (10.7-15.3); LYMPH % 12.9 % (8-40); MCH 30.5 pg (25.7-33.7); MCHC 31.6 g/dl (32.0-36.0); MEAN CELL VOLUME 96.4 fl (80-96); MEAN PLT VOLUME 7.7 fl (7.5-11.1); MONO % 8.4 % (3.8-10.2); NEUT % 77.3 % (42.8-82.8); PLATELET COUNT 75 10^3/uL (134-434); RBC 2.38 M/mm3 (3.60-5.2); RDW 19.1 % (11.6-15.6); WHITE BLOOD COUNT 5.4 K/mm3 (4.0-10.0)
[2024-04-09 04:54] LABS: VENOUS PH 7.106 (7.310-7.410)
[2024-04-09] MEDS ORDERED: EPINEPHrine 1:10,000 (P-F SYR) 1 MG/10 ML DISP.SYRIN ONE ×2 (05:16→07:09)
[2024-04-09] MEDS ORDERED: ATROPINE SULFATE 1 MG/10 ML DISP.SYRIN ONE (05:16)
[2024-04-09] MEDS: SODIUM CHLORIDE 0.9% 500 ML INFUS.BAG IV ONE (05:30)
[2024-04-09 05:32] LABS: LACTIC ACID 10.3 mmol/L (0.4-2.0)
[2024-04-09] MEDS ORDERED: NOREPINEPHRINE 0.9 % NACL 8 MG/250 ML BAG IVPB ONE (06:07)
[2024-04-09] MEDS: ETOMIDATE 20 MG/10 ML VIAL IVPUSH ONE (06:25)
[2024-04-09] MEDS ORDERED: CALCIUM CHLORIDE 1 GM/10 ML *DISP.SYRIN ONE (06:53)
[2024-04-09] MEDS ORDERED: SODIUM BICARBONATE 8.4% 50 MEQ/50 ML DISP.SYRIN ONE (06:55)
[2024-04-09 07:26] VITALS: BP 62/34; PULSE 91; RESP 17; TEMP 92.7
== END 2024-04-09 09:15 | disposition expired ==
LOC: JER 23:48
PROC: 0BH17EZ Insertion of Endotracheal Airway into Trachea, Via Natural or Artificial Opening (ICD-10-PCS; principal; 2024-04-08)
PROC: 05HN33Z Insertion of Infusion Device into Left Internal Jugular Vein, Percutaneous Approach (ICD-10-PCS; 2024-04-08)
PROC: 3E033NZ Introduction of Analgesics, Hypnotics, Sedatives into Peripheral Vein, Percutaneous Approach (ICD-10-PCS; 2024-04-09)
PROC: 3E033GC Introduction of Other Therapeutic Substance into Peripheral Vein, Percutaneous Approach (ICD-10-PCS; 2024-04-09)
DX: S50.02XA Contusion of left elbow, initial encounter (principal); S00.83XA Contusion of other part of head, initial encounter; R29.6 Repeated falls; M25.562 Pain in left knee; W19.XXXA Unspecified fall, initial encounter; Z20.822 Contact with and (suspected) exposure to COVID-19
CPT/HCPCS: 0241U-QW; 36415; 70450-TC; 70486-TC; 71045-TC-FY; 71260-TC; 72125-TC; 72170-TC-FY; 73030-TC-LT-FY; 73060-TC-LT-FY; 73070-TC-LT-FY; 73090-TC-LT-FY; 73521-TC-FY; 73552-TC-LT-FY; 73560-TC-LT-FY; 73590-TC-LT-FY; 74177-TC; 80053; 82140; 82803; 82962; 83605; 83735; 84100; 84484; 85025; 85610; 85730; 86900; 86922; 93005; 93010; 99291; P9017; P9038; P9058; Q9967